=== PATIENT | female | born 1990 | race Caucasian/White ===

== ENCOUNTER → 2018-04-04 13:48 | Outpatient (CLI) | payer OTHER, SELFPAY ==
--- NOTE | 2018-04-04 13:52 | XR_ITS ---
XR foot wt bearing RT 3V HISTORY: ITS.REASON: pain ORDERING PHYSICIAN: Delmi Shankar DPM PATIENT AGE: 27 years COMPARISON: None FINDINGS: No fracture or dislocation. No lytic or blastic change. There is normal mineralization.. The joint spaces are well-preserved. No significant degenerative/arthritic changes. No erosive changes evident. IMPRESSION: Negative, no acute finding
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
== END ==
PROVIDERS: Visit Provider Podiatrist
DX: M79.673 Pain in unspecified foot (principal)
CPT/HCPCS: 73630

== ENCOUNTER → 2019-11-05 08:38 | Outpatient (CLI) | payer OTHER, SELFPAY ==
[2019-11-05 09:18] LABS: Basophils % 0.3 % (0.1-2.0); Eosinophils % 0.3 % (0.1-12.0); Hematocrit 43.5 % (37.0-47.0); Hemoglobin 13.9 g/dL (12.2-16.2); Lymphocytes # 1.9 K/mm3 (0.7-4.5); Lymphocytes % 37.8 % (10-50); Mean Corpuscular HGB Conc 31.9 g/dL (31.8-35.4); Mean Corpuscular Hemoglobin 29.5 pg (27.0-31.2); Mean Corpuscular Volume 92.5 fl (81-99); Mean Platelet Volume 8.2 fl (7.4-10.4); Monocytes # 0.3 K/mm3 (0.1-1.0); Monocytes % 5.3 % (1.7-9.3); Neutrophils # 2.8 K/mm3 (1.8-7.8); Neutrophils % 56.4 % (37.0-80.0); Platelet Count 260 K/mm3 (142-424); Red Blood Count 4.71 M/mm3 (4.20-5.40); Red Cell Distribution Width 13.2 % (11.5-17.5)
[2019-11-05 11:36] LABS: INR 0.96 (0.9-1.1)
[2019-11-05 11:40] LABS: Chloride 102 mmol/L (98-107); Sodium 137 mmol/L (136-145)
[2019-11-05 11:41] LABS: Potassium 4.3 mmoL/L (3.5-5.1)
[2019-11-05 11:43] LABS: Alanine Aminotransferase 12 U/L (12-78); Alkaline Phosphatase 43 U/L (38-126); Aspartate Amino Transferase 21 U/L (14-36); Bilirubin,Total 0.2 mg/dl (0.2-1.3); Blood Urea Nitrogen 11 mg/dl (7-17); Estimated Glomerular Filt Rate 120 ml/min (>60); GFR (African American) 145 ML/MIN (>60)
[2019-11-05 11:44] LABS: Albumin Level 4.5 g/dl (3.5-5.0); Albumin/Globulin Ratio 1.8 (1.1-1.8); Anion Gap 11.3 mEq/L (5-15); Calcium 9.7 mg/dl (8.4-10.2); Carbon Dioxide 28 mmol/L (22.0-30.0); Globulin 2.5 g/dL (1.3-3.2); Glucose 86 mg/dl (74-100)
== END ==
PROVIDERS: Visit Provider Internal Medicine Adolescent Medicine
DX: G43.109 Migraine with aura, not intractable, without status migrainosus (principal); N96 Recurrent pregnancy loss
CPT/HCPCS: 36415; 80053; 83036; 85025; 85610; 85730

== ENCOUNTER → 2019-11-07 10:03 | Outpatient (CLI) | payer OTHER, SELFPAY ==
--- NOTE | 2019-11-07 10:09 | MR_ITS ---
PROCEDURE: MR HEAD/BRAIN WO CON CLINICAL INDICATION: MIGRAINE W/AURA AND W/OUT STATUS MIGRAINES, NOT INTRACTABLE Severe headache with visual disturbance, constant dizziness, forgetfulness COMPARISON: No exams were available for comparison TECHNIQUE: Routine multiplanar multi echo sequences are performed without gadolinium enhancement. FINDINGS: No midline shift, mass effect, intracranial hemorrhage, hydrocephalus, or acute infarction is evident. There is some unusual hypertrophic changes the right occipital lobe which extends slightly across midline. There is however, no evidence of mass at this region. The cerebellopontine angles, cerebellum, and brainstem are unremarkable. No mastoid effusion or sinus air-fluid level. The pituitary, optic chiasm, corpus callosum, and craniocervical junction are unremarkable. IMPRESSION: 1. No acute intracranial findings. 2. Unusual hypertrophic change of the right occipital lobe which is of questionable clinical significance otherwise negative Dictated by: Gene Cook MD 11/08/2019 09:42 Electronically signed by Gene Cook MD in [facility] 11/08/2019 09:42
--- NOTE | 2019-11-07 10:09 | MR_ITS ---
PROCEDURE: MR CERVICAL SPINE WO CON CLINICAL INDICATION: MIGRAINE W/AURA AND W/OOUT STATUS MIGRAINOUS, NOT INTRACTABL Dizziness, pain COMPARISON: No exams were available for comparison TECHNIQUE: Standard multiplanar multiecho sequences are performed without contrast. 3-D MIP and myelographic images are also rendered and reviewed FINDINGS: There is normal alignment. There is some straightening of the cervical lordosis. The disc spaces are well preserved. No canal stenosis or disc herniation. No acute fracture or dislocation. The cervical cord has an unremarkable appearance. No destructive lesions are evident. There is some minimal upper thoracic curvature convex left IMPRESSION: Straightening of cervical lordosis otherwise negative MRI of the cervical spine. Dictated by: Gene Cook MD 11/08/2019 10:46 Electronically signed by Gene Cook MD in [facility] 11/08/2019 10:46
== END ==
PROVIDERS: PCP Internal Medicine Adolescent Medicine; Visit Provider Internal Medicine Adolescent Medicine
DX: G43.109 Migraine with aura, not intractable, without status migrainosus (principal)
CPT/HCPCS: 70551; 72141; 76376

== ENCOUNTER 2019-11-24 19:07 | Emergency (ER) | payer OTHER, SELFPAY ==
[2019-11-24 19:09] VITALS: BP 143/93; PULSE 74; RESP 16; RESP 18; TEMP 37.4; O2SAT 100; BMI 26.5
--- NOTE | 2019-11-24 19:26 | ECG_ITS ---
APPROVED REPORT Exam: Resting ECG HR:73 bpm ECG Measurements Heart Rate 73 AXES MD 128 P 44 QRSd 76 QRS 73 QT 370 T 3 QTc 407 <Conclusion> Normal sinus rhythm Cannot rule out Inferior infarct, age undetermined Abnormal ECG Electronically signed by : Balwinder Day, 11/25/2019 20:58:25
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
[2019-11-24 19:37] LABS: Microscopic, Urine URINE MICROSCOPIC (MICROSCOPIC)
[2019-11-24 19:39] VITALS: BP 140/92; PULSE 74; RESP 18; O2SAT 100
[2019-11-24 19:47] LABS: Basophils # 0.1 K/mm3 (0-0.2); Basophils % 0.6 % (0.1-2.0); Eosinophils # 0.1 K/mm3 (0.0-0.4); Eosinophils % 1.1 % (0.1-12.0); Hematocrit 44.1 % (37.0-47.0); Hemoglobin 14.1 g/dL (12.2-16.2); Lymphocytes # 2.7 K/mm3 (0.7-4.5); Lymphocytes % 22.6 % (10-50); Mean Corpuscular Hemoglobin 29.4 pg (27.0-31.2); Mean Corpuscular Volume 91.9 fl (81-99); Monocytes # 0.6 K/mm3 (0.1-1.0); Monocytes % 5.2 % (1.7-9.3); Neutrophils # 8.4 K/mm3 (1.8-7.8); Neutrophils % 70.5 % (37.0-80.0); Platelet Count 310 K/mm3 (142-424); Red Blood Count 4.81 M/mm3 (4.20-5.40); Red Cell Distribution Width 12.9 % (11.5-17.5); White Blood Count 11.9 K/mm3 (4.8-10.8)
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
[2019-11-24 19:49] LABS: Alanine Aminotransferase 15 U/L (12-78); Albumin Level 5.1 g/dl (3.5-5.0); Albumin/Globulin Ratio 1.6 (1.1-1.8); Alkaline Phosphatase 54 U/L (38-126); Anion Gap 11.6 mEq/L (5-15); Aspartate Amino Transferase 29 U/L (14-36); Bilirubin,Total 0.2 mg/dl (0.2-1.3); Blood Urea Nitrogen 13 mg/dl (7-17); Calcium 9.9 mg/dl (8.4-10.2); Carbon Dioxide 29 mmol/L (22.0-30.0); Chloride 100 mmol/L (98-107); Creatinine Clearance Estimated 146 mL/min (50-200); Estimated Glomerular Filt Rate 120 ml/min (>60); GFR (African American) 145 ML/MIN (>60); Globulin 3.2 g/dL (1.3-3.2); Glucose 91 mg/dl (74-100); Potassium 3.6 mmoL/L (3.5-5.1); Sodium 137 mmol/L (136-145); Total Protein,Serum 8.3 g/dl (6.3-8.2)
[2019-11-24 19:58] LABS: Troponin I < 0.01 ng/ml (0.00-0.034)
[2019-11-24 20:02] LABS: Appearance,Urine CLEAR (Clear); Bilirubin,Urine Negative (Negative); Blood, Urine Negative (Negative); Color,Urine YELLOW (Yellow); Glucose,Urine (UA) Negative (Negative); Ketones,Urine Negative (Negative); Leukocyte Esterase,Urine Negative (Negative); Nitrate,Urine Negative (Negative); PH,Urine 6.5 (5.0-8.5); Protein,Urine Negative (Negative); Urobilinogen,Urine 0.2 EU/dl (0.2)
[2019-11-24 20:03] LABS: Urine Pregnancy, HCG Qual. Negative (Negative)
[2019-11-24 20:05] LABS: WBC,Urine Occasional #/hpf (0-3)
[2019-11-24 20:39] VITALS: BP 139/91; PULSE 74; RESP 15; O2SAT 99
[2019-11-24 21:44] VITALS: BP 137/87; PULSE 81; RESP 16; TEMP 36.8; O2SAT 100
== END 2019-11-24 21:47 | disposition home or self-care (01) ==
PROVIDERS: Emergency Provider Family Medicine; PCP Internal Medicine Adolescent Medicine
DX: S16.1XXA Strain of muscle, fascia and tendon at neck level, initial encounter (principal); V89.2XXA Person injured in unspecified motor-vehicle accident, traffic, initial encounter; R55 Syncope and collapse; Z88.0 Allergy status to penicillin; Z90.09 Acquired absence of other part of head and neck; F17.210 Nicotine dependence, cigarettes, uncomplicated
CPT/HCPCS: 70450; 71045; 72125; 72170; 73590; 80053; 81001; 81025; 84484; 85025; 93005; 96365; 99283

== ENCOUNTER → 2019-11-27 15:16 | Outpatient (CLI) | payer OTHER, SELFPAY | PROVIDERS: PCP Internal Medicine Adolescent Medicine; Visit Provider Internal Medicine Adolescent Medicine | DX: R55 Syncope and collapse (principal) | CPT/HCPCS: 93225; 93226 ==

== ENCOUNTER → 2019-12-03 12:55 | Outpatient (CLI) | payer OTHER, SELFPAY | PROVIDERS: Visit Provider Specialist | DX: R55 Syncope and collapse (principal); R40.4 Transient alteration of awareness; R53.83 Other fatigue; G47.10 Hypersomnia, unspecified | CPT/HCPCS: 36415 ==

== ENCOUNTER → 2019-12-09 07:56 | Outpatient (POV) | payer OTHER, SELFPAY | PROVIDERS: PCP Internal Medicine Adolescent Medicine; Referring Provider Specialist; Visit Provider Specialist | DX: R40.4 Transient alteration of awareness (principal); R55 Syncope and collapse | CPT/HCPCS: 95819 ==

== ENCOUNTER 2019-12-10 07:02 | Day surgery (SDC) | payer OTHER, SELFPAY ==
[2019-12-10 07:42] VITALS: BMI 26.5
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
== END 2019-12-10 09:10 | disposition home or self-care (01) ==
LOC: RT 07:02
PROVIDERS: PCP Internal Medicine Adolescent Medicine; Visit Provider Internal Medicine Adolescent Medicine
DX: R55 Syncope and collapse (principal)
CPT/HCPCS: 93660

== ENCOUNTER → 2020-01-07 11:05 | Outpatient (CLI) | payer OTHER, SELFPAY ==
[2020-01-07 13:04] LABS: HCG,Quantitative 2795 mIU/ml (0-5.42)
[2020-01-07 13:45] LABS: Coronavirus 19 IgG Antibody Negative (Negative); Coronavirus 19 IgM Antibody Negative (Negative)
== END ==
PROVIDERS: Specialist; Visit Provider Nurse Practitioner Obstetrics & Gynecology
DX: Z32.00 Encounter for pregnancy test, result unknown (principal)
CPT/HCPCS: 36415; 84702; 86328

== ENCOUNTER → 2020-01-08 20:13 | Outpatient (CLI) | payer OTHER, SELFPAY | PROVIDERS: PCP Internal Medicine Adolescent Medicine; Visit Provider Specialist | DX: G47.419 Narcolepsy without cataplexy (principal); G47.10 Hypersomnia, unspecified; R55 Syncope and collapse; R53.83 Other fatigue; R40.4 Transient alteration of awareness; G43.109 Migraine with aura, not intractable, without status migrainosus; F39 Unspecified mood [affective] disorder | CPT/HCPCS: 95810 ==

== ENCOUNTER 2020-01-09 07:11 | Outpatient (CLI) | payer OTHER, SELFPAY ==
[2020-01-09 08:35] LABS: Basophils # 0.1 K/mm3 (0-0.2); Basophils % 0.7 % (0.1-2.0); Eosinophils # 0.1 K/mm3 (0.0-0.4); Hematocrit 42.2 % (37.0-47.0); Hemoglobin 14.1 g/dL (12.2-16.2); Lymphocytes # 1.8 K/mm3 (0.7-4.5); Lymphocytes % 29.7 % (10-50); Mean Corpuscular HGB Conc 33.4 g/dL (31.8-35.4); Mean Corpuscular Hemoglobin 31.1 pg (27.0-31.2); Mean Corpuscular Volume 93.3 fl (81-99); Monocytes # 0.3 K/mm3 (0.1-1.0); Monocytes % 5.1 % (1.7-9.3); Neutrophils # 3.9 K/mm3 (1.8-7.8); Neutrophils % 63.5 % (37.0-80.0); Platelet Count 288 K/mm3 (142-424); Red Blood Count 4.52 M/mm3 (4.20-5.40); Red Cell Distribution Width 12.8 % (11.5-17.5); White Blood Count 6.2 K/mm3 (4.8-10.8)
[2020-01-09 09:19] LABS: HCG,Quantitative 5482 mIU/ml (0-5.42)
[2020-01-09 11:05] VITALS: BP 116/85; PULSE 91; RESP 18; TEMP 36.7; O2SAT 97
[2020-01-12 17:06] LABS: HIV Screen 4th Generation wRfx Non Reactive; Hepatitis B Surface Antigen Negative; Hepatitis C Antibody <.1
[2020-01-12 17:07] LABS: Rapid Plasma Reagin Ab Titer Non Reactive; Rubella Antibodies, IgG 1.53
== END 2020-01-09 11:20 | disposition home or self-care (01) ==
LOC: LAB 07:12 → INF 10:58
PROVIDERS: Visit Provider Nurse Practitioner Obstetrics & Gynecology
DX: O20.0 Threatened abortion (principal); Z32.00 Encounter for pregnancy test, result unknown; O26.899 Other specified pregnancy related conditions, unspecified trimester; Z67.91 Unspecified blood type, Rh negative
CPT/HCPCS: 36415; 84702; 85025; 86592; 86703; 86762; 87340; 87380; 96372; G0432; J2790

== ENCOUNTER → 2020-01-10 07:08 | Outpatient (CLI) | payer OTHER, SELFPAY | PROVIDERS: PCP Internal Medicine Adolescent Medicine; Visit Provider Specialist | DX: G47.10 Hypersomnia, unspecified (principal) | CPT/HCPCS: 95805 ==

== ENCOUNTER → 2020-01-16 07:15 | Outpatient (CLI) | payer OTHER, SELFPAY ==
[2020-01-16 14:00] LABS: HCG,Quantitative 23303 mIU/ml (0-5.42)
== END ==
PROVIDERS: Visit Provider Nurse Practitioner Obstetrics & Gynecology
DX: Z34.90 Encounter for supervision of normal pregnancy, unspecified, unspecified trimester (principal)
CPT/HCPCS: 36415; 84702

== ENCOUNTER → 2020-01-17 10:45 | Outpatient (CLI) | payer OTHER, SELFPAY ==
--- NOTE | 2020-01-17 10:45 | US_ITS ---
PROCEDURE: US OB TRANSVAGINAL CLINICAL INDICATION: for dates COMPARISON: TVP US TRANSVAGINAL PREG from 01/16/2016 FINDINGS: An intrauterine gestational sac is present with a pole with a crown-rump length of 0.54cm correlating to gestational age of 6weeks 3days. heart tones are present with an FHR of 119bpm. Yolk sac is noted. There is a probable hypervascular right corpus luteum cyst. Right ovary measures 4 centimeters x 2.6 mm x 3.1 centimeters. Left ovary measures 6 3.2 centimeters x 71.7 centimeters by 2.4 centimeters. There are no abnormal fluid collections. IMPRESSION: Viable 6 week 3 day IUP Estimated due date by Ultrasound is 09/08/2020 Dictated by: Scott Thompson 01/17/2020 13:11 Electronically signed by Scott Thompson in [facility] 01/17/2020 13:11
== END ==
PROVIDERS: PCP Internal Medicine Adolescent Medicine; Visit Provider Nurse Practitioner Obstetrics & Gynecology
DX: Z34.90 Encounter for supervision of normal pregnancy, unspecified, unspecified trimester (principal)
CPT/HCPCS: 76817

== ENCOUNTER → 2020-02-28 13:31 | Outpatient (CLI) | payer OTHER, SELFPAY ==
--- NOTE | 2020-02-28 13:31 | US_ITS ---
PROCEDURE: US OB TRANSVAGINAL CLINICAL INDICATION: dates before 12 wks Spotty blood COMPARISON: US US OB TRANSVAGINAL from 01/17/2020 FINDINGS: An intrauterine gestational sac is present with a pole with a crown-rump length of 6.46cm correlating to gestational age of 12weeks 6days. heart tones are present with an FHR of 154bpm. Placenta is forming posteriorly. No obvious subchorionic bleed. No adnexal mass or cul-de-sac fluid IMPRESSION: Live IUP at 12 weeks 6 days Estimated due date by Ultrasound is 09/05/2020 Dictated b Gene Cook MD 02/28/2020 16:49 Gene Cook MD in [facility] 02/28/2020 16:49
== END ==
PROVIDERS: PCP Internal Medicine Adolescent Medicine; Visit Provider Nurse Practitioner Obstetrics & Gynecology
DX: O26.841 Uterine size-date discrepancy, first trimester (principal)
CPT/HCPCS: 76817

== ENCOUNTER → 2020-04-17 07:39 | Outpatient (CLI) | payer OTHER, SELFPAY ==
--- NOTE | 2020-04-17 07:39 | US_ITS ---
PROCEDURE: US OB /MATERNAL DETAIL CLINICAL INDICATION: 20 week gestation Anatomy scan COMPARISON: US US OB TRANSVAGINAL from 02/28/2020 FINDINGS: There is a single live intrauterine gestation present in breech presentation. The cervix is closed measuring 4.6 cm. The placenta fundal with anterior and posterior components and is grade 1. Complete survey performed and was unremarkable on the submitted images as in PACS. No discrete anomalies identified on survey imaging by technologist. Active fetus. Three-vessel cord with satisfactory umbilical cord insertion. 4- chamber heart noted. Survey of brain & ventricles Unremarkable. Face and neck survey unremarkable. Diaphragm and chest views unremarkable. Abdomen: Both kidneys noted and unremarkable. Stomach noted and satisfactory. Spine: Survey of the spine satisfactory with no anomalies identified nor imaged. Both arms and legs noted. Amniotic Fluid: Adequate. Maternal adnexa: No significant findings. Measurements: Average ultrasound age 19weeks 5days. Gestational Age 19weeks 3days Estimated due date by ultrasound age 0209/06/2020. Estimated weight 295g BPD = 19weeks 6days OFD = 20weeks 2days HC = 19weeks 3days AC = 19weeks 4days FL = 19weeks 4days Growth Percentile= 48Percent% Heart Rate = 150bpm Cerebellum = 20weeks 1day Humerus = 19weeks 2days HC/AC is 1.18 CI is 0.77 FL/BPD is 0.67 FL/AC is 0.22 IMPRESSION: Live IUP in breech presentation with an average ultrasound age of 19 weeks 5 days. No obvious anomalies. Please see above for detail Dictated by: Gene Cook MD 04/18/2020 13:01 Gene Cook MD in [facility] 04/18/2020 13:01
== END ==
PROVIDERS: PCP Internal Medicine Adolescent Medicine; Visit Provider Nurse Practitioner Obstetrics & Gynecology
DX: Z34.90 Encounter for supervision of normal pregnancy, unspecified, unspecified trimester (principal); Z3A.20 20 weeks gestation of pregnancy
CPT/HCPCS: 76811

== ENCOUNTER → 2020-06-17 07:37 | Outpatient (CLI) | payer OTHER, SELFPAY ==
[2020-06-17 08:16] LABS: Glucose,Fasting 76 mg/dl (74-100)
[2020-06-17 10:49] LABS: Glucose 1 Hour 97 mg/dL (74-100)
== END ==
PROVIDERS: Visit Provider Nurse Practitioner Obstetrics & Gynecology
DX: O26.899 Other specified pregnancy related conditions, unspecified trimester (principal); Z34.90 Encounter for supervision of normal pregnancy, unspecified, unspecified trimester; Z67.91 Unspecified blood type, Rh negative
CPT/HCPCS: 36415; 82951; J2790

== ENCOUNTER 2020-06-18 07:33 | Outpatient (CLI) | payer OTHER, SELFPAY ==
--- NOTE | 2020-06-18 07:46 | PC.NURSE ---
Pt. here for outpatient Rhogam injection.
[2020-06-18 07:53] VITALS: BMI 28.9
[2020-06-18 09:02] VITALS: BP 108/59; PULSE 73; RESP 16; TEMP 36.8; O2SAT 98
--- NOTE | 2020-06-18 09:17 | PC.NURSE ---
08:56 Pt. tolerated injection well.
--- NOTE | 2020-06-18 09:18 | PC.NURSE ---
Addendum entered by Laurel Su RN 06/18/20 09:19: This occurred at 09:00 Original Note: Pt. left ambulatory per pt. request.
== END 2020-06-18 09:00 | disposition home or self-care (01) ==
LOC: OBOUT 07:34 → OB 07:37
PROVIDERS: PCP Internal Medicine Adolescent Medicine; Visit Provider Nurse Practitioner Obstetrics & Gynecology
DX: O26.899 Other specified pregnancy related conditions, unspecified trimester (principal); Z3A.38 38 weeks gestation of pregnancy; Z67.91 Unspecified blood type, Rh negative
CPT/HCPCS: 96372; J2790

== ENCOUNTER → 2020-07-02 15:09 | Outpatient (CLI) | payer OTHER, SELFPAY ==
[2020-07-02 15:12] LABS: Microscopic, Urine URINE MICROSCOPIC (MICROSCOPIC)
[2020-07-02 16:01] LABS: Appearance,Urine CLEAR (Clear); Bilirubin,Urine Negative (Negative); Blood, Urine Negative (Negative); Color,Urine YELLOW (Yellow); Glucose,Urine (UA) Negative (Negative); Ketones,Urine Negative (Negative); Leukocyte Esterase,Urine Negative (Negative); Nitrate,Urine Negative (Negative); PH,Urine 7.5 (5.0-8.5); Protein,Urine Negative (Negative); Urobilinogen,Urine 0.2 EU/dl (0.2)
[2020-07-02 16:13] LABS: Bacteria,Urine Trace /lpf; RBC,Urine Occasional #/hpf (0-3)
== END ==
PROVIDERS: Visit Provider Nurse Practitioner Obstetrics & Gynecology
DX: Z34.90 Encounter for supervision of normal pregnancy, unspecified, unspecified trimester (principal); Z3A.30 30 weeks gestation of pregnancy
CPT/HCPCS: 81001

== ENCOUNTER → 2020-07-31 12:50 | Outpatient (CLI) | payer OTHER, SELFPAY ==
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
== END ==
PROVIDERS: PCP Internal Medicine Adolescent Medicine; Visit Provider Nurse Practitioner Obstetrics & Gynecology
DX: O36.5990 Maternal care for other known or suspected poor fetal growth, unspecified trimester, not applicable or unspecified (principal)
CPT/HCPCS: 76811; 76819

== ENCOUNTER → 2020-08-12 10:50 | Outpatient (CLI) | payer OTHER, SELFPAY | PROVIDERS: Visit Provider Nurse Practitioner Obstetrics & Gynecology | DX: Z34.90 Encounter for supervision of normal pregnancy, unspecified, unspecified trimester (principal) | CPT/HCPCS: 86403 ==

== ENCOUNTER → 2020-08-14 13:53 | Outpatient (CLI) | payer OTHER, SELFPAY ==
--- NOTE | 2020-08-14 13:57 | US_ITS ---
PROCEDURE: US OB FOLLOW UP CLINICAL INDICATION: Low amniotic fluid COMPARISON: US US OB /MATERNAL DETAIL from 07/31/2020 FINDINGS: There is a live IUP which is in cephalic presentation. The cervix is closed measuring 3 cm. heart and body motion is noted within FHR 152 beats per minute. The placenta is fundal and grade 1. Average ultrasound age is 34 weeks 6 days. Estimated weight 2520 g which is 15th percentile. BPD is 34 weeks 5 days, OFD 34 weeks 5 days, HC 34 weeks 2 days, AC 34 weeks 5 days, FL 35 weeks 4 days. The the GUNJAN is along the lower limits of normal at 7 cm. This is not significantly changed. IMPRESSION: Live IUP in cephalic presentation with an average ultrasound age of 34 weeks 6 days. Please see above for detail GUNJAN is 7 cm Dictated by: Gene Cook MD 08/15/2020 10:45 Gene Cook MD in [facility] 08/15/2020 10:45
== END ==
PROVIDERS: PCP Internal Medicine Adolescent Medicine; Visit Provider Nurse Practitioner Obstetrics & Gynecology
DX: O41.00X0 Oligohydramnios, unspecified trimester, not applicable or unspecified (principal)
CPT/HCPCS: 76816

== ENCOUNTER 2020-09-02 05:00 | Inpatient (IN) | payer OTHER, SELFPAY ==
[2020-09-02 05:03] VITALS: BMI 29.9
[2020-09-02 06:13] VITALS: BP 119/73; PULSE 80; RESP 18; TEMP 36.9; O2SAT 98; BMI 29.9
[2020-09-02 06:32] LABS: Microscopic, Urine URINE MICROSCOPIC (MICROSCOPIC)
[2020-09-02 06:33] LABS: Basophils # 0.1 K/mm3 (0-0.2); Basophils % 0.6 % (0.1-2.0); Eosinophils # 0.5 K/mm3 (0.0-0.4); Eosinophils % 3.1 % (0.1-12.0); Hematocrit 38.1 % (37.0-47.0); Hemoglobin 12.4 g/dL (12.2-16.2); Lymphocytes # 2.7 K/mm3 (0.7-4.5); Lymphocytes % 17.7 % (10-50); Mean Corpuscular HGB Conc 32.5 g/dL (31.8-35.4); Mean Corpuscular Hemoglobin 29.8 pg (27.0-31.2); Mean Corpuscular Volume 91.7 fl (81-99); Mean Platelet Volume 8.6 fl (7.4-10.4); Monocytes # 0.9 K/mm3 (0.1-1.0); Monocytes % 5.9 % (1.7-9.3); Neutrophils # 11.2 K/mm3 (1.8-7.8); Neutrophils % 72.7 % (37.0-80.0); Platelet Count 366 K/mm3 (142-424); Red Blood Count 4.15 M/mm3 (4.20-5.40); Red Cell Distribution Width 13.9 % (11.5-17.5); White Blood Count 15.4 K/mm3 (4.8-10.8)
[2020-09-02 06:39] LABS: Appearance,Urine CLEAR (Clear); Bilirubin,Urine Negative (Negative); Blood, Urine Negative (Negative); Color,Urine ORANGE (Yellow); Glucose,Urine (UA) Negative (Negative); Ketones,Urine Negative (Negative); Leukocyte Esterase,Urine Negative (Negative); Nitrate,Urine Negative (Negative); PH,Urine 6.5 (5.0-8.5); Protein,Urine TRACE (Negative); Specific Gravity, Urine 1.025 (1.005-1.030); Urobilinogen,Urine 0.2 EU/dl (0.2)
[2020-09-02 06:42] LABS: MANUAL DIFFERENTIAL MANUAL DIFFERENTIAL (MANUAL DIFF)
[2020-09-02 06:48] LABS: Barbiturates Screen,Urine Negative ng/ml (<200)
[2020-09-02 06:49] LABS: Benzodiazepines Screen,Urine Negative ng/ml (<200)
[2020-09-02 06:50] LABS: Amphetamine/Metha Screen,Urine Negative ng/ml (<1000); Cocaine Screen,Urine Negative ng/ml (<300)
[2020-09-02 06:51] LABS: Cannabinoid Screen,Urine Negative ng/ml (<50); Methadone Screen,Urine Negative ng/ml (<300)
[2020-09-02 06:52] LABS: Opiate Screen,Urine Negative ng/ml (<300)
[2020-09-02 06:53] LABS: Phencyclidine Screen,Urine Negative ng/ml (<25)
[2020-09-02 07:45] LABS: Lymphocytes % 18 % (10-50); Monocytes % 6 % (2-9); Neutrophils % 76 % (42-76); Platelet Estimate Normal; RBC Morphology Normal; Total Cells Counted 100
--- NOTE | 2020-09-02 09:35 | P.PN_ITS ---
[facility] Anesthesia Checklist - Structural Data Admitted From: Inpatient Planned Operative Procedure/s: labor epidural Consent for Planned Operative Procedure(s) Verified: Yes - Airway Assessment C-Spine Mobility Assessed: Yes TMJ Mobility Assessed: Yes Dentition: Good Dentition - Neurological Assessment Level of Consciousness: Awake, Alert, Appropriate - Anesthesia Plan Anesthesia Risk discussed: Yes Anesthesia Plan: Verified ASA Class: II Anesthesia Type: Epidural [facility] History I have reviewed the patient's past medical history: Yes Medical History: Reports:: Anxiety, Depression, Migraine Denies:: Cancer, Diabetes Mellitus Type 1, Diabetes Mellitus Type 2, MRSA *Have you ever received a pneumonia vaccine?: No *Have you received a flu vaccine this season?: Yes Anesthesia experience/problems:: none Laterality Cases: Left: Carpal Tunnel Release, Bilateral: Tonsillectomy, Total Hip Replacement Other Surgeries: Yes: Dilation and Curettage, Other. No: Amputation: No Fractures: No - *Social History Smoking Status: Former smoker Tobacco Type: cigarettes # Packs/Day (cigarettes): 1 #Yrs smoked (if former smoker): 12 Alcohol Intake: former Alcohol Intake Frequency:: holidays/special occasions only Substance Use Type: denies use *Occupational Status:: employed Housing: house Household Members: family *Travel in the last 8 weeks: None - Psychiatric History Pschychiatric History:: Reports:: Anxiety, Depression Family Hx:: Cancer, Diabetes, Stroke [employer] history: Spontaneous Para: 1
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
[2020-09-02 11:24] LABS: Cord Blood PH 7.26 (7.35-7.45)
--- NOTE | 2020-09-02 12:15 | HMH.DN ---
- Delivery Note Delivery Date:: 09/02/20 Delivery Time:: 11:06 Anesthesia Type: Epidural Was labor medically induced?: Yes Induction method: per misoprostol protocol Gestational age (weeks): 39 Infant delivered prior to 39 weeks?: No Infant Gender: Male at 1 minute: 7 at 5 minutes: 8 Delivery Procedure:: She is a 29-year-old 8 para 1 aborta 6 who was 39 weeks gestational age. She expressed a desire for induction of labor at term. She was started on IV oxytocin and had her membranes ruptured. She was having some prolonged decelerations and she was 8 cm dilated and the baby's head was quite low. We had her push and she was able to push beyond the cervix and she delivered spontaneously a liveborn male child at 1106. Undiluted head the anterior shoulder then delivered followed by the rest the infant's body atraumatically. The oropharynx and nasopharynx were bulb suction. The baby was vigorous. We allowed the cord to continue to pulsate for approximately 1 minute. The cord was then doubly clamped and cut and the infant was placed on the mother's abdomen for further care. The nurses assigned Apgars of 7 at 1 minute and 8 at 5 minutes. We then obtained cord blood as well as cord pH. The pH was 7.26. Using gentle traction on the cord the cord then spontaneously tore and the placenta remained in situ. The patient received IV oxytocin and the placenta then delivered spontaneously at 12:07 PM. It had a normal three-vessel cord. There were no perineal or vaginal lacerations. She has a Rh- blood, she is rubella immune and was group B streptococcus negative. She plans to breast-feed. Her senior solutions consultant is Dr. Faria. Estimated blood loss was approximately 500 cc. Placental Delivery Description: Spontaneous
--- NOTE | 2020-09-02 12:20 | HMH.OBAPHP ---
OB - H&P: HPI Antepartum - History of Present Illness Chief complaint: Term History of present illness: She is a 29-year-old 8 para 1 aborta 6 who was 39+ weeks gestational age. She expressed a desire for induction at term. - History of Present Criteria for establishing EDC:: LMP confirmed by 1st trimester US care: good care Ultrasounds: normal 1st trimester US, normal mid trimester US Obstetrical complications: none Medical complications: none - Labs Blood type: A (-) negative Rubella: immune RPR/VDRL: nonreactive GBS status: negative HBsAG: negative [facility] History I have reviewed the patient's past medical history: Yes Medical History: Reports:: Anxiety, Depression, Migraine Denies:: Cancer, Diabetes Mellitus Type 1, Diabetes Mellitus Type 2, MRSA *Have you ever received a pneumonia vaccine?: No *Have you received a flu vaccine this season?: Yes Anesthesia experience/problems:: none Laterality Cases: Left: Carpal Tunnel Release, Bilateral: Tonsillectomy, Total Hip Replacement Other Surgeries: Yes: Dilation and Curettage, Other. 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 Para: 1 Review of Systems - Review of Systems Review of systems:: pertinent systems reviewed and negative unless documented below Meds Home Medications Medication Instructions Recorded Confirmed Type prenat.vits,chema,kxw-inkz-angsm 1 tab PO DAILY 02/04/20 09/02/20 History vmrqlfxprt-whspuegrkcgww-aiohcwpa 1 tab PO NEEDED PRN 02/26/20 09/02/20 History 50 mg-325 mg-40 mg tablet RX: Famotidine [Acid Head Of English] 20 mg PO DAILY 09/02/20 09/02/20 History Allergies Allergy/AdvReac Type Severity Reaction Status Date / Time penicillin G [PENICILLIN G] Allergy Intermediate I-HIVES Verified 08/31/20 09:31 promethazine [From PHENERGAN] Allergy Unknown NA-NAUSEA/V Verified 08/31/20 09:31 OMITING amoxicillin Allergy Verified 08/31/20 09:31 OB - H&P: Exam - Physical Exam Vital signs: Temp Pulse Resp BP Pulse Ox 98.4 F 80 18 119/73 98 09/02/20 06:13 09/02/20 06:13 09/02/20 06:13 09/02/20 06:13 09/02/20 06:13 - Constitutional no acute distress - Routine HEENT Exam Head: Present: normocephalic Eye: Present: EOMI, PERRL ENT: Present: mucous membranes moist - Routine Neck Exam Present: supple, full ROM - Routine Respiratory Exam Absent: accessory muscle use (good air entry bilaterally), respiratory distress, wheezes, crackles - Routine Cardiovascular Exam Present: RRR. Absent: murmur - Routine Abdominal Exam Present: soft, normoactive bowel sounds. Absent: tenderness, distended, guarding - Routine Rectal Exam Patient deferred: visual exam, digital exam - Routine Exam Patient deferred: external exam, groin exam, perineal exam - Routine Extremities Exam Present: full ROM. Absent: cyanosis, edema - Routine Skin Exam Present: intact. Absent: cyanosis - Routine Neurological Exam Present: alert, oriented X3 - Routine Psychiatric Exam Present: normal affect OB - Results - Labs Labs: Short CBC 09/02/20 Range/Units 05:35 WBC 15.4 H (4.8-10.8) K/mm3 Hgb 12.4 (12.2-16.2) g/dL Hct 38.1 (37.0-47.0) % Plt Count 366 (142-424) K/mm3 Urine 09/02/20 Range/Units 05:15 Urine Color [place] (Yellow) Urine Appearance Clear (Clear) Urine pH 6.5 (5.0-8.5) Ur Specific [place] 1.025 (1.005-1.030) Ur
[2020-09-02 20:00] VITALS: BP 119/58; PULSE 76; RESP 18; TEMP 36.8; O2SAT 96
[2020-09-03 04:20] VITALS: BP 120/66; PULSE 86; RESP 16; TEMP 36.8; O2SAT 97
[2020-09-03 07:17] LABS: Hematocrit 36.9 % (37.0-47.0)
[2020-09-03 08:00] VITALS: BP 132/57; PULSE 71; RESP 20; TEMP 36.7; O2SAT 97
--- NOTE | 2020-09-03 11:30 | HMH.ACPN2 ---
Internal Medicine - PN: Subj *Date: 09/03/20 *Time: 11:30 Interval history: She is doing very well this morning. She is eating and drinking and ambulating. Her lochia is normal. She denies any pain. Exam Vital signs and Labs for Last 24 Hours: Temp Pulse Resp BP Pulse Ox 98.1 F 71 20 132/57 L 97 09/03/20 08:00 09/03/20 08:00 09/03/20 08:00 09/03/20 08:00 09/03/20 08:00 Laboratory Results - last 24 hr 09/02/20 05:35: Antibody Identification See Comments 09/03/20 06:26: Hgb 12.0 L, Hct 36.9 L 09/03/20 06:26: Blood Type Cancelled, Antibody Screen Cancelled, Screen Cancelled, Baby's Rh Status Cancelled I & O for Last 24 hours: Intake & Output 08/31/20 09/01/20 09/02/20 09/03/20 11:59 11:59 11:59 11:59 Weight 164 lb Microbiology Reports for the Last 24 Hours: Microbiology 09/02/20 05:45 Nasopharyngeal Coronavirus COVID-19 PCR - Final - Constitutional no acute distress - *Routine HEENT Exam Head: Present: normocephalic Eye: Present: EOMI, PERRL ENT: Present: mucous membranes moist Assessment and Plan (1) Normal delivery at term Status: Acute Category: Medical Code(s): O80 - Encounter for full-term uncomplicated delivery - Assessment and plan all Dx Assessment and Plan for all problems:: She continues to do very well. We will plan to send her home tomorrow.
[2020-09-03 20:32] VITALS: BP 138/58; PULSE 57; RESP 18; TEMP 36.7; O2SAT 96
[2020-09-04 03:53] VITALS: BP 112/57; PULSE 67; RESP 16; TEMP 36.8; O2SAT 96
[2020-09-04 08:00] VITALS: BP 112/70; PULSE 75; RESP 18; TEMP 36.5; O2SAT 95
--- NOTE | 2020-09-04 08:10 | HMH.OBDCSM ---
General - General Admission date:: 09/02/20 Discharge date: 09/04/20 HPI - History of Present Illness History of present illness: She is a 29-year-old 8 now 4 para 2 aborta 6 who was 39+ weeks gestational age. She was feeling pressure and discomfort and as result of that was offered induction of labor at term. Hospital Course Hospital Course: She was started on IV oxytocin and had her membranes ruptured. Under labor parous progressed to full dilation and delivered spontaneously a liveborn male child at 11:06 AM on the morning of September 02, 2020. The baby weighed 5 pounds 14 ounces and had Apgars of 7 at 1 minute and 8 at 5 minutes. She has done well and has remained afebrile throughout her hospitalization. She is eating and drinking and ambulating. She is breast-feeding. Her lochia is normal. She has a Rh+ blood and she did not need RhoGam. She is rubella immune and was group B streptococcus negative. 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 She is discharged home to follow-up with me in approximately 2 weeks time. She will continue with her vitamins and iron. She is just taking lvfl-xui-selwwtz analgesics for discomfort. Her condition on discharge is stable and improved. Rhogam Administration: Not Indicated Objective Vital signs: Temp Pulse Resp BP Pulse Ox 98.3 F 67 16 112/57 L 96 09/04/20 03:53 09/04/20 03:53 09/04/20 03:53 09/04/20 03:53 09/04/20 03:53 no acute distress - *Routine HEENT Exam Head: Present: normocephalic Eye: Present: EOMI, PERRL ENT: Present: mucous membranes moist Results Labs on day of discharge: Labs from last 24 hours 09/03/20 09/02/20 06:26 05:35 Blood Type Cancelled Antibody Screen Cancelled Antibody Identification See Comments Screen Cancelled Baby's Rh Status Cancelled DS: Diagnosis - Discharge Diagnosis (1) Normal delivery at term Status: Acute Discharge Plan - Patient Discharge Instructions ACTIVITY: No heavy lifting DIET: continue same diet Additional Instructions: NO HEAVY LIFTING, STRENUOUS ACTIVITY AND NOTING IN THE VAGINA FOR 6 WEEKS Patient Instructions: Depression, Hemorrhage, DI for Labor and Delivery, Vaginal , DI for Pre-eclampsia, [facility] Post Discharge Instructions, Preventing the Spread of Coronavirus Discharge Instructions - Follow up Plan Follow up with: Gage Dyer MD [Staff Physician] - Disposition: Home, Self-Senior Living Medications: Home Medications Medication Instructions Recorded Confirmed Type prenat.vits,chema,sah-bcit-nuqtv 1 tab PO DAILY 02/04/20 09/02/20 History kbggawwdat-kxghallpknmmx-yxiaitjf 1 tab PO NEEDED PRN 02/26/20 09/02/20 History 50 mg-325 mg-40 mg tablet Famotidine [Acid Objective C Developer] 20 mg PO DAILY 09/02/20 09/02/20 History Prescriptions/Medication Reconciliation: Continued prenat.vits,chema,eoo-ginn-iolbm 1 tab PO DAILY rwwnmlhtey-giyicduouzeah-qkvomdzo 50 mg-325 mg-40 mg tablet 1 tab PO NEEDED PRN PRN Reason: Migraine Headache Famotidine [Acid Objective C Developer] 20 mg PO DAILY - Problem Reconciliation Problems Reviewed?: Yes
== END 2020-09-04 11:20 | disposition home or self-care (01) | DRG 807 ==
PROVIDERS: Admitting Provider Nurse Practitioner Obstetrics & Gynecology; PCP Internal Medicine Adolescent Medicine; Visit Provider Nurse Practitioner Obstetrics & Gynecology
DX: O76 Abnormality in fetal heart rate and rhythm complicating labor and delivery (principal); Z37.0 Single live birth; Z3A.39 39 weeks gestation of pregnancy
CPT/HCPCS: 59409; 36415; 59025; 80305; 81001; 82800; 85007; 85014; 85018; 85025; 86850; 86870; 94761; C1758; G0283; U0003

== ENCOUNTER 2021-01-05 09:51 | Emergency (ER) | payer OTHER, SELFPAY ==
[2021-01-05 09:55] VITALS: BP 126/75; PULSE 53; RESP 17; TEMP 36.7; O2SAT 100; BMI 24.7
[2021-01-05 10:09] VITALS: BP 126/75; PULSE 53; RESP 17; TEMP 36.7; O2SAT 100
--- NOTE | 2021-01-05 10:12 | HMH.EDUTC ---
[facility] [place] Clinical Impression: Migraine Qualifiers: Migraine type: unspecified Status migrainosus presence: without status migrainosus Intractability: not intractable Qualified Code(s): G43.909 - Migraine, unspecified, not intractable, without status migrainosus Disposition: Home, Self-Care Condition on Discharge: Good Instructions: Migraine -- Adult, DI for Migraine Additional Instructions: Drink plenty of fluids. Take tylenol or ibuprofen for pain or fever. Take the medications as directed. Follow up with your regular doctor. GO TO THE ER FOR ANY WORSENING SYMPTOMS Referrals: Michael Faria MD [Primary Care Provider] - Time of Disposition: 10:13 Medical Decision Making - Medical Records Medical records reviewed: No: I reviewed the patient's medical records. - Jad Inquiry Pt receiving controlled substance: No Vital Signs: 01/05/21 09:55 01/05/21 10:09 Temperature 98.1 F 98.1 F Temperature Source Oral Pulse Rate 53 L Pulse Rate [Left] 53 L Respiratory Rate 17 17 Blood Pressure 126/75 Blood Pressure [Right Arm] 126/75 Blood Pressure Mean [Right Arm] 92 02 Sat by Pulse Oximetry 100 Orders (Tests/Meds): ED MEDICATIONS Discontinued Medications Generic Name Dose Route Start Last Admin Trade Name Freq PRN Reason Stop Dose Admin Ketorolac Tromethamine 60 mg 01/05/21 10:08 01/05/21 10:09 Ketorolac 60mg/2ml Vial IM 01/05/21 10:09 [address] [facility] [place] - General Stated complaint: headache Time Seen by Provider: 01/05/21 10:00 Mode of Arrival: Ambulatory Source of Information: Patient Limitations: No Limitations Description of Symptoms (Recalled from Triage Doc. by RN): Pt states she has had a migraine since this morning HEENT Symptoms (Recalled from RN notes): No Resp Symptoms (Recalled from RN notes): No Skin Symptoms (Recalled from RN notes): No MS Symptoms (Recalled from RN notes): No Functional Status (Recalled from RN notes): wnl - History of Present Illness Provider Complaint: She states that she has been having symptoms of her migraine headaches this morning. She usually takes excedrin. She took this early this morning and it did not help. She denies any other complaints. She denies that this is the worst headache of her life. - Related Data Previous Rx's Medication Instructions Recorded metoclopramide HCl 5 mg tablet 5 mg PO QID 14 Days #56 tab 10/13/20 norethindrone (contraceptive) 0.35 0.35 mg PO DAILY #84 tab 10/13/20 mg tablet levonorgestrel-ethinyl estradiol 1 tab PO DAILY #28 tab 12/16/20 0.1 mg-20 mcg tablet Allergies Allergy/AdvReac Type Severity Reaction Status Date / Time penicillin G [PENICILLIN G] Allergy Intermediate I-HIVES Verified 01/05/21 10:03 promethazine [From PHENERGAN] Allergy Unknown NA-NAUSEA/V Verified 01/05/21 10:03 OMITING amoxicillin Allergy Verified 01/05/21 10:03 - Worker's Comp Is this a Worker's Comp case?: No [facility] History - Hepatitis A Screen Drug use history?: No High risk sexual behaviors?: No History of sexually transmitted infection?: No Currently employed?: No Childcare worker?: No Do you have indoor plumbing?: Yes Do you have electricity?: Yes Attestation statement:: This patient has been screened for Hepatitis A risk factors. I have reviewed the patient's past medical history: Yes Medical History: Reports:: Anxiety, Depression, Migraine Denies:: Cancer, Diabetes Mellitus Type 1, Diabetes Mellitus Type 2, MRSA Laterality Cases: Left: Carpal Tunnel Release, Bilateral: Tonsillectomy, Total Hip Replacement Other Surgeries: Yes: Dilation and Curettage, Other. No: Amputation: No Fractures: No Comment: D&C x2, wisdom teeth - Social History Smoking Status: Former smoker Tobacco Type: cigarettes # Packs/Day (cigarettes): 1 #Yrs smoked (if former smoker): 12 Alcohol Intake: never Alcohol Intake Frequency:: holidays/special occasions onl
== END 2021-01-05 10:14 | disposition home or self-care (01) ==
PROVIDERS: Emergency Provider Nurse Practitioner Family; PCP Internal Medicine Adolescent Medicine
DX: G43.909 Migraine, unspecified, not intractable, without status migrainosus (principal); F41.8 Other specified anxiety disorders; Z88.0 Allergy status to penicillin; Z87.891 Personal history of nicotine dependence
CPT/HCPCS: 96372; 99202; G0463

== ENCOUNTER → 2021-06-22 11:29 | Outpatient (CLI) | payer OTHER, SELFPAY ==
[2021-06-22 15:49] VITALS: BMI 22.8
== END ==
PROVIDERS: PCP Internal Medicine Adolescent Medicine; Visit Provider Nurse Practitioner Family
DX: G43.909 Migraine, unspecified, not intractable, without status migrainosus (principal)

== ENCOUNTER → 2021-08-19 14:07 | Outpatient (CLI) | payer OTHER, SELFPAY ==
--- NOTE | 2021-08-19 14:36 | MR_ITS ---
FINAL REPORT CLINICAL HISTORY: . worsening headaches FINDINGS: Multiple projection images of the brain venous vasculature was performed without contrast. The raw data images were also reviewed. On maximum intensity projection images there is discontinuity posteriorly in the superior sagittal sinus concerning for thrombosis. The left transverse sinus and sigmoid sinus are patent. The right transverse sinus is not well visualized. IMPRESSION: Findings suggesting partial thrombus of the superior sagittal sinus particularly posteriorly. Reviewed, Interpreted and Dictated by Mayur Mosher MD Transcribed by Gregoroi Yeh Authenticated by Mayur Mosher MD on 08/19/2021 04:26:[address] [facility]
--- NOTE | 2021-08-19 14:36 | MR_ITS ---
FINAL REPORT CLINICAL HISTORY: worsening headaches FINDINGS: Multi planar MR imaging was obtained through the brain without contrast. The midline structures appear intact. There is no evidence of Chiari malformation. The brain parenchyma is homogeneous. There are no localized intra-axial signal abnormalities. On T1 imaging there is minimal abnormal signal in the superior sagittal sinus posteriorly seen on images 13-18 of series 7. This may represent a small amount of thrombus. On T2 images there is some signal void present to suggest flow. The paranasal sinuses demonstrate normal signal voids. IMPRESSION: Apparent small amount of thrombus in the superior sagittal sinus posteriorly. Reviewed, Interpreted and Dictated by Mayur Mosher MD Transcribed by Gregorio Yeh Authenticated by Mayur Mosher MD on 08/19/2021 04:26:02 PM [facility]
== END ==
LOC: RAD 14:08
PROVIDERS: PCP Internal Medicine Adolescent Medicine; Visit Provider Nurse Practitioner Family
DX: G43.119 Migraine with aura, intractable, without status migrainosus (principal)
CPT/HCPCS: 70544; 70551

== ENCOUNTER → 2021-08-31 13:26 | Outpatient (CLI) | payer OTHER, SELFPAY ==
--- NOTE | 2021-08-31 13:41 | CT_ITS ---
FINAL REPORT TECHNIQUE: Thin section axial CT with IV contrast supplemented with multiplanar reconstruction under CT angiogram protocol. 3-D reconstructions were performed. This study was performed with techniques to keep radiation doses as low as reasonably achievable (ALARA). Individualized dose reduction techniques using automated exposure control or adjustment of mA and/or kV according to the patient''s size were employed. CLINICAL HISTORY: CEREBRAL VENOUS SINUS THROMBOSIS COMPARISON: MR dated 08/19/2021 FINDINGS: No aneurysm is seen. Major intracranial vessels are patent without significant stenosis. The right transverse sinus is hypoplastic as a normal variant. The other dural venous sinuses appear patent. There is mild irregularity of the posterior/superior sagittal sinus but without evidence of thrombosis. IMPRESSION: Mild irregularity of the posterior/superior sagittal sinus without evidence of thrombosis. Reviewed, Interpreted and Dictated by Ralf Green III, MD Transcribed by Telma Chavez Authenticated by Ralf Green III, MD on 08/31/2021 03:53:37 PM [facility]
== END ==
LOC: RAD 13:26
PROVIDERS: PCP Internal Medicine Adolescent Medicine; Visit Provider Psychiatry & Neurology Neurology
DX: G08 Intracranial and intraspinal phlebitis and thrombophlebitis (principal)
CPT/HCPCS: 70496; Q9967

== ENCOUNTER → 2021-09-20 15:06 | Outpatient (CLI) | payer OTHER, SELFPAY ==
[2021-10-06 16:05] LABS: Factor II, DNA Analysis Not Detected
== END ==
LOC: LAB 15:06
PROVIDERS: PCP Internal Medicine Adolescent Medicine; Visit Provider Internal Medicine Medical Oncology
DX: G43.909 Migraine, unspecified, not intractable, without status migrainosus (principal)
CPT/HCPCS: 36415; 81240; 81241

== ENCOUNTER → 2021-09-22 15:01 | Outpatient (CLI) | payer OTHER, SELFPAY | PROVIDERS: PCP Internal Medicine Adolescent Medicine; Visit Provider Internal Medicine Medical Oncology | DX: Z13.0 Encounter for screening for diseases of the blood and blood-forming organs and certain disorders involving the immune mechanism (principal) | CPT/HCPCS: 36415 ==

== ENCOUNTER → 2022-03-17 06:16 | Outpatient (CLI) | payer OTHER, SELFPAY | PROVIDERS: PCP Family Medicine; Visit Provider Family Medicine | DX: U07.1 COVID-19 (principal) | CPT/HCPCS: C9803; U0003; U0005 ==

== ENCOUNTER → 2022-04-29 14:23 | Outpatient (CLI) | payer OTHER, SELFPAY ==
--- NOTE | 2022-04-29 15:20 | XR_ITS ---
FINAL REPORT CLINICAL HISTORY: Chronic neck pain FINDINGS: CERVICAL SPINE 7 views were obtained including flexion and extension views. There is no acute fracture. There is no malalignment. The disc spaces are preserved. There is no abnormal movement with flexion and extension. There is no soft tissue abnormality. IMPRESSION: No acute bony abnormality. No abnormal movement with flexion and extension. Reviewed, Interpreted and Dictated by Ralf Green III, MD Transcribed by Sophie Alexis Authenticated and . [facility]
--- NOTE | 2022-04-29 16:20 | MR_ITS ---
PROCEDURE INFORMATION: Exam: MR Cervical Spine Without Contrast Exam date and time: 04/29/2022 4:19 PM Age: 31 years old Clinical indication: Pain; Cervicalgia; Additional info: New onset neck pain. Stiffness x 2-3 months. Tingling in finger tips TECHNIQUE: Imaging protocol: Magnetic resonance imaging of the cervical spine without contrast. COMPARISON: CT CERVICAL SPINE WO CON 11/24/2019 8:17 PM FINDINGS: Bones/joints: Unremarkable. Spinal cord: Normal signal. No cord compression. C2-C3: No significant disc disease. No significant spinal stenosis. C3-C4: No significant disc disease. No significant spinal stenosis. C4-C5: No significant disc disease. No significant spinal stenosis. C5-C6: No significant disc disease. No significant spinal stenosis. C6-C7: No significant disc disease. No significant spinal stenosis. C7-T1: No significant disc disease. No significant spinal stenosis. Soft tissues: Unremarkable. Vasculature: Expected flow voids in the vertebral arteries. IMPRESSION: Unremarkable spine.
== END ==
PROVIDERS: PCP Nurse Practitioner Family; Visit Provider Nurse Practitioner Family
DX: M54.2 Cervicalgia (principal); G43.119 Migraine with aura, intractable, without status migrainosus
CPT/HCPCS: 72052; 72141; 76376

== ENCOUNTER 2022-06-10 16:00 | Outpatient (RCR) | payer OTHER, SELFPAY ==
--- NOTE | 2022-05-11 17:51 | HMH.PTOPEV ---
PT Outpatient Evaluation Rehab PT Outpatient Evaluation Start: 05/11/22 17:03 Freq: Status: Active Protocol: Document 05/11/22 17:39 KUMAR (Rec: 05/11/22 17:51 KUMAR [id number]) E-signed By Santhosh Spears, PT Outpatient Therapy Subjective History Subjective History Patient is a 31 year old female presenting to outpatient PT with reports of sub-acute cervical spine pain (approx 3 months) and chronic migraines (approx 15 yrs) of insidious onset. Most recent imaging indicate no bulging discs or degenerative issues. Intermittent numbness and tingling to B hands noted. Observation does indicate straightening of the cervical spine. Comorbidities include hx of narcolepsy. Chief Complaint Pain,Spasms,Stiff,Paresthesia Symptom Type Ache,Dull Symptoms Relieved By Rest/Positioning,Prescription Meds Symptoms Aggravated By Lifting Prior Functional Limitations None Current Functional Limitations Reaching,Lifting,Housework, Desk Work/Reading,Driving, Sleeping,Recreation Activity Level of pain today (0-10) 2 Pain scale - at its best (0-10) 0 Pain scale - at its worst (0-10) 7 Cervical Eval Palpation Cervical Muscles R Suboccipital,L Suboccipital, R Upper Trapezius,L Upper Trapezius Cervical/Thoracic Palpation Findings Tenderness,Spasm,Trigger Point Posture Head/C-Spine Posture Sitting Position C-Spine Flattened Head/C-Spine Posture Standing Position C-Spine Flattened Flexibility Deficits Upper Trapezius Muscle Length (R) Moderate Tightness,(L) Moderate Tightness Levaetor Scapulae Muscle Length (R) Moderate Tightness,(L) Moderate Tightness Pectoralis Minor Muscle Length (R) Moderate Tightness,(L) Moderate Tightness Passive Joint Mobility Cervical PIVM WNL: R OA L OA R AA L AA R C2/3 L C2/3 R C3/4 L C3/4 R C4/5 L C4/5
== END 2022-06-10 16:05 | disposition home or self-care (01) ==
LOC: PT 16:00
PROVIDERS: PCP Nurse Practitioner Family; Visit Provider Nurse Practitioner Family
DX: M54.2 Cervicalgia (principal); G43.119 Migraine with aura, intractable, without status migrainosus
CPT/HCPCS: 20561; 97010; 97014; 97110; 97140; 97163; G0283

== ENCOUNTER → 2022-08-30 09:34 | Outpatient (CLI) | payer OTHER, SELFPAY ==
[2022-08-30 09:57] LABS: Basophils # 0.2 K/mm3 (0-0.2); Basophils % 1.7 % (0.1-2.0); Eosinophils # 0.3 K/mm3 (0.0-0.4); Eosinophils % 3.2 % (0.1-12.0); Lymphocytes # 3.1 K/mm3 (0.7-4.5); Lymphocytes % 29.9 % (10-50); Mean Corpuscular HGB Conc 31.9 g/dL (31.8-35.4); Mean Corpuscular Hemoglobin 30.8 pg (27.0-31.2); Mean Corpuscular Volume 96.5 fl (81-99); Mean Platelet Volume 8.4 fl (7.4-10.4); Monocytes # 0.5 K/mm3 (0.1-1.0); Monocytes % 4.7 % (1.7-9.3); Neutrophils # 6.3 K/mm3 (1.8-7.8); Neutrophils % 60.6 % (37.0-80.0); Platelet Count 284 K/mm3 (142-424); Red Blood Count 4.87 M/mm3 (4.20-5.40); Red Cell Distribution Width 12.6 % (11.5-17.5); White Blood Count 10.4 K/mm3 (4.8-10.8)
[2022-08-30 10:35] LABS: Alanine Aminotransferase 15 U/L (12-78); Albumin Level 4.7 g/dl (3.5-5.0); Alkaline Phosphatase 43 U/L (38-126); Anion Gap 10.3 mEq/L (5-15); Aspartate Amino Transferase 20 U/L (14-36); Bilirubin,Total 0.3 mg/dl (0.2-1.3); Blood Urea Nitrogen 7 mg/dl (7-17); Calcium 9.3 mg/dl (8.4-10.2); Carbon Dioxide 27 mmol/L (22.0-30.0); Chloride 106 mmol/L (98-107); Estimated Glomerular Filt Rate 146 ml/min (>60); GFR (African American) 177 ML/MIN (>60); Globulin 2.4 g/dL (1.3-3.2); Glucose 85 mg/dl (74-100); Potassium 4.3 mmoL/L (3.5-5.1); Sodium 139 mmol/L (136-145); Total Protein,Serum 7.1 g/dl (6.3-8.2)
[2022-08-30 10:57] LABS: HCG,Quantitative < 2 mIU/ml (0-5.42)
[2022-08-31 11:14] LABS: FSH 6.6 mIU/mL (.); LH 12.3 mIU/mL (.)
== END ==
LOC: LAB 09:35
PROVIDERS: PCP Internal Medicine Adolescent Medicine; Visit Provider Nurse Practitioner Obstetrics & Gynecology
DX: Z01.812 Encounter for preprocedural laboratory examination (principal); N92.0 Excessive and frequent menstruation with regular cycle
CPT/HCPCS: 36415; 80053; 83001; 83002; 84702; 85025

== ENCOUNTER 2022-09-01 06:12 | Day surgery (SDC) | payer OTHER, SELFPAY ==
[2022-08-30 11:49] VITALS: BMI 23.0
[2022-09-01] VITALS (10 sets, daily range): BP systolic 107–135; BP diastolic 64–90; PULSE 61–78; RESP 12–20; TEMP 36.1–43; O2SAT 98–100
--- NOTE | 2022-09-01 07:54 | P.PN_ITS ---
[facility] Disclaimer: The information contained in this section may have been updated after the patient was seen, as this information can be updated by other users. Medical History (Updated 09/01/22 @ 06:35 by Evonne Coughlin RN) Narcolepsy Surgical History History of carpal tunnel release History of tonsillectomy and adenoidectomy Hx of dilation and curettage Hx of wisdom tooth extraction Family History (Updated 09/01/22 @ 06:35 by Evonne Coughlin RN) Other Cancer Coronary artery disease Family history of diabetes mellitus type II Family history of myocardial infarction Stroke Social History Smoking Status: Current some day smoker tobacco type: cigarettes packs per day: 1 second hand exposure: No alcohol intake: current substance use type: denies use current occupational status: employed Travel in the last 8 weeks: None household members: family housing: house current occupation: [employer] current occupational exposures/hazards: No caffeine: Yes [facility] Anesthesia Checklist Patient Identification Patient Identification: Verbal (Name & ) Structural Data Admitted From: Home Planned Operative Procedure/s: bilat salpingectomy Consent for Planned Operative Procedure(s) Verified: Yes Additional verifications Anesthesia Reactions: No Hx Blood Transfusions: No Blood Transfusion Reaction: No Airway Assessment C-Spine Mobility Assessed: Yes TMJ Mobility Assessed: Yes Dentition: Good Dentition Neurological Assessment Level of Consciousness: Awake, Alert and Appropriate Anesthesia Plan Anesthesia Risk discussed: Yes Anesthesia Plan: Verified ASA Class: II Anesthesia Type: General
--- NOTE | 2022-09-01 08:24 | EXP.OP.NOTE ---
Date of procedure: 09/01/22 Pre-op Diagnosis:: Desire for sterilization, menorrhagia Post-op Diagnosis:: Desire for sterilization, menorrhagia Procedure performed:: Laparoscopic bilateral salpingectomy, hysteroscopy, dilation and curettage, NovaSure ablation Surgeon:: Gage Dyer MD EXHIBITS CURATOR:: Cb Gilbert Anesthesia: GETA Estimated blood loss (mL): 50 Clinical Note:: She is a 31-year-old lady who expressed desire for sterilization. She also has extremely heavy periods and was offered NovaSure ablation as well. Operative findings:: She had a normal-appearing pelvis. The uterus was somewhat bulky consistent with her previous pregnancies. Ovaries were seen and appeared normal. Tubes appeared normal. The endometrial cavity was normal and sounded to 8 cm. The endometrial cavity length was 5.5 cm the width was 4.3 cm. The endometrium was normal with no evidence of polyps. Operative note:: She was taken to the operating room where general anesthesia was found be adequate. She was prepped and draped in normal sterile fashion in the semilithotomy position. A weighted speculum was placed in the vagina and the anterior lip of the cervix was grasped with a tenaculum. I then inserted a Tata uterine manipulator into the cervical os. The balloon was then insufflated. I changed gloves and injected 10 cc of 0.5% ropivacaine around her umbilicus and made a small incision within the umbilicus. I inserted a Veress needle into the abdominal cavity. The peritoneal cavity was then insufflated with carbon dioxide gas to a pressure of 20 mmHg. I then inserted a 5 millimeter trocar under direct vision. I injected through and through the pubic hairline, made a small incision here and inserted an 8 mm trocar under direct vision. I identified the inferior epigastric artery on the left side, went lateral to these and injected through and through. I then placed a 5 mm trocar here under direct vision. The pelvis and upper abdomen were then inspected and the findings were as previously dictated. I grasped the right tube at the cornua and using harmonic scalpel on coagulation mode I cut through the tube. I then grasped the distal tube and using harmonic scalpel cut along the mesosalpinx. The tube was removed through 8 mm trocar site. This was similarly performed on the patient's left side. I then injected 30 cc of 0.5% ropivacaine into the pelvis. After assuring hemostasis the gas was let out of the abdomen and hemostasis was once again assured. The abdomen was then reinsufflated. The secondary trochars were removed under direct vision. The gas was let out her abdomen. The primary trocar was then removed. The 8 mm trocar site was closed deeply with 2-0 Vicryl suture followed by subcuticular 4-0 Monocryl suture. The 5 mm trocar sites were closed with subcuticular 4-0 Monocryl. Sterile dressings were applied. We then placed her in the lithotomy position and prepared her for the endometrial ablation. She was prepped and draped in the normal sterile fashion in the lithotomy position. A weighted speculum was placed in the vagina and the anterior lip of the cervix was grasped with a tenaculum. The cervix was then dilated to approximately 6 mm. I then inserted a hysteroscope into the uterine cavity and the findings were as previously dictated. I then performed a gentle curettage with a medium curette. I then sounded the uterus and determine the length of the uterus. I then inserted the NovaSure device and determine the width of the endometrial cavity. The endometrial cavity length was 5.5 cm and the width was 4.3 cm. This was placed into the NovaSure device. I then ran the device through its program. I further inspected the endometrial cavity and was found to be completely charred. I then injected 30 cc of 0.5% ropivacaine at the 3:00, 5:00, 7:00, and 9:00 positions of the cervix. She tolerated procedure well and was taken to the recovery room in excellent condition.
--- NOTE | 2022-09-01 08:31 | EXP.ANES.I ---
[facility] Anesthesia Record Part I Anesthesia Record I Intake, IV Amount: 1,200 Estimated blood loss (mL): 0 Urine output (mL): 0 Blood Pressure: 125/80 SaO2: 98 Pulse Rate: 78 Respiratory Rate: 12 Temperature: 97.8 F Patient is:: Awake and Stable Stable to PACU at:: 08:30
[2022-09-05 07:41] VITALS: BP 122/79; PULSE 71; TEMP 36.6
--- NOTE | 2022-09-05 07:41 | EXP.ANES.II ---
[facility] Anesthesia Record Part II Anesthesia Record Part II Discharge Time: 09:00 Destination: Surgical Day Care (OP Surgery) PACU nurse assessment reviewed?: Yes Patient Condition:: Good Anesthesia Complications:: None Swallowing reflex intact?: Yes Cyanosis?: No Blood Pressure: 122/79 Pulse Rate: 71 Temperature: 97.8 F Mental Status: Alert & Oriented Pain level:: 0 Nausea and/or vomitting:: None Intake, IV Amount: 0
== END 2022-09-01 09:35 | disposition home or self-care (01) ==
PROVIDERS: PCP Internal Medicine Adolescent Medicine; Visit Provider Nurse Practitioner Obstetrics & Gynecology
PROC: 0U5B8ZZ Destruction of Endometrium, Via Natural or Artificial Opening Endoscopic (ICD-10-PCS; CPT 58563; principal; 2022-09-01 07:30)
DX: Z30.2 Encounter for sterilization (principal); N92.0 Excessive and frequent menstruation with regular cycle; F17.210 Nicotine dependence, cigarettes, uncomplicated; Z79.899 Other long term (current) drug therapy
CPT/HCPCS: 58563; 58661; 96374; J2405; J2710

== ENCOUNTER → 2022-12-15 23:34 | Outpatient (CLI) | payer OTHER, SELFPAY ==
[2022-12-15 17:44] LABS: T4 (Thyroxine) 7.2 ug/dl (5.53-11.0)
[2022-12-15 17:57] LABS: Thyroid Stimulating Hormone 1.17 uIU/mL (0.465-4.68)
== END ==
PROVIDERS: PCP Internal Medicine Adolescent Medicine; Visit Provider Obstetrics & Gynecology
DX: R09.89 Other specified symptoms and signs involving the circulatory and respiratory systems (principal); R53.83 Other fatigue
CPT/HCPCS: 36415; 84436; 84443

== ENCOUNTER → 2023-06-02 16:44 | Outpatient (CLI) | payer OTHER, SELFPAY ==
[2023-06-02 17:22] LABS: Basophils # 0.1 K/mm3 (0-0.2); Basophils % 0.7 % (0.1-2.0); Eosinophils # 0.1 K/mm3 (0.0-0.4); Eosinophils % 0.8 % (0.1-12.0); Hematocrit 43.3 % (37.0-47.0); Hemoglobin 14.5 g/dL (12.2-16.2); Lymphocytes % 38.7 % (10-50); Mean Corpuscular HGB Conc 33.4 g/dL (31.8-35.4); Mean Corpuscular Hemoglobin 31.4 pg (27.0-31.2); Mean Corpuscular Volume 94.2 fl (81-99); Mean Platelet Volume 8.5 fl (7.4-10.4); Monocytes # 0.4 K/mm3 (0.1-1.0); Monocytes % 5.5 % (1.7-9.3); Neutrophils # 4.2 K/mm3 (1.8-7.8); Neutrophils % 54.3 % (37.0-80.0); Platelet Count 276 K/mm3 (142-424); Red Cell Distribution Width 12.6 % (11.5-17.5); White Blood Count 7.7 K/mm3 (4.8-10.8)
[2023-06-02 19:20] LABS: Uric Acid 2.8 mg/dl (2.5-6.2)
[2023-06-02 19:25] LABS: C-Reactive Protein 0.4 mg/L (0-4)
[2023-06-02 19:50] LABS: Erythrocyte Sedimentation Rate 26 mm/hr (0-20)
[2023-06-04 08:09] LABS: RA Latex Turbid. <10.0 IU/mL (<14.0)
[2023-06-05 11:50] LABS: Anti-Cyclic Citrullinated Pept 0 units (0-19)
[2023-06-05 13:31] LABS: Anti-Centromere B Antibodies <0.2 AI (0.0-0.9); Anti-DNA (DS) Ab Qn 4 IU/mL (0-9); Anti-Jo-1 <0.2 AI (0.0-0.9); Anti-Smith Antibody <0.2 AI (0.0-0.9); Antichromatin Antibodies <0.2 AI (0.0-0.9); Antiscleroderma-70 Antibodies <0.2 AI (0.0-0.9); RNP Antibodies <0.2 AI (0.0-0.9); Sjogren's Anti-SS-A <0.2 AI (0.0-0.9); Sjogren's Anti-SS-B <0.2 AI (0.0-0.9)
[2023-06-05 16:20] LABS: Antinuclear Antibodies, IFA Negative (.)
== END ==
LOC: LAB 16:45
PROVIDERS: PCP Internal Medicine Adolescent Medicine; Visit Provider Obstetrics & Gynecology
DX: M25.50 Pain in unspecified joint (principal)
CPT/HCPCS: 36415; 84550; 85025; 85651; 86038; 86140; 86200; 86225; 86235; 86431

== ENCOUNTER 2024-03-05 14:50 | Outpatient (CLI) | payer OTHER, SELFPAY ==
[2024-03-05 18:34] LABS: Basophils % 0.6 % (0.1-2.0); Eosinophils # 0.1 K/mm3 (0.0-0.4); Eosinophils % 0.9 % (0.1-12.0); Hematocrit 46.2 % (37.0-47.0); Hemoglobin 14.6 g/dL (12.2-16.2); Lymphocytes # 1.9 K/mm3 (0.7-4.5); Lymphocytes % 30.7 % (10-50); Mean Corpuscular HGB Conc 31.7 g/dL (31.8-35.4); Mean Corpuscular Hemoglobin 31.1 pg (27.0-31.2); Mean Corpuscular Volume 98.1 fl (81-99); Mean Platelet Volume 8.5 fl (7.4-10.4); Monocytes # 0.2 K/mm3 (0.1-1.0); Monocytes % 3.8 % (1.7-9.3); Platelet Count 334 K/mm3 (142-424); Red Blood Count 4.71 M/mm3 (4.20-5.40); Red Cell Distribution Width 13.1 % (11.5-17.5); White Blood Count 6.2 K/mm3 (4.8-10.8)
[2024-03-05 19:11] LABS: T4 (Thyroxine) 8.3 ug/dl (5.53-11.0)
[2024-03-05 19:25] LABS: Thyroid Stimulating Hormone 1.21 uIU/mL (0.465-4.68)
[2024-03-05 19:36] LABS: Albumin Level 4.9 g/dl (3.5-5.0); Potassium 4.1 mmoL/L (3.5-5.1)
[2024-03-05 19:39] LABS: Albumin/Globulin Ratio 1.7 (1.1-1.8); Aspartate Amino Transferase 24 U/L (14-36); Bilirubin,Total 0.5 mg/dl (0.2-1.3); Estimated Glomerular Filt Rate 117 ml/min (>60); GFR (African American) 141 ML/MIN (>60); Globulin 2.9 g/dL (1.3-3.2); Glucose 85 mg/dl (74-100); Total Protein,Serum 7.8 g/dl (6.3-8.2)
[2024-03-05 19:54] LABS: Alanine Aminotransferase 17 U/L (12-78); Alkaline Phosphatase 52 U/L (38-126); Anion Gap 11.1 mEq/L (5-15); Blood Urea Nitrogen 6 mg/dl (7-17); C-Reactive Protein < 0.3 mg/L (0-4); Calcium 9.5 mg/dl (8.4-10.2); Carbon Dioxide 27 mmol/L (22.0-30.0); Chloride 104 mmol/L (98-107); Sodium 138 mmol/L (136-145)
[2024-03-05 20:53] LABS: 25-OH Vitamin D, Total 22.7 ng/mL (30-100)
== END 2024-03-05 23:59 | disposition home or self-care (01) ==
LOC: LAB.DROPOF 03-06 14:15
PROVIDERS: PCP Family Medicine; Visit Provider Family Medicine
DX: R20.2 Paresthesia of skin (principal); G43.909 Migraine, unspecified, not intractable, without status migrainosus
CPT/HCPCS: 80050; 80053; 82306; 84436; 84443; 85025; 86140

== ENCOUNTER 2024-03-08 11:30 | Outpatient (CLI) | payer OTHER, SELFPAY ==
[2024-03-08 13:36] LABS: Vitamin B12 533 pg/mL (239-931)
== END 2024-03-08 23:59 | disposition home or self-care (01) ==
LOC: LAB.DROPOF 03-09 19:30
PROVIDERS: PCP Specialist; Visit Provider Specialist
DX: R20.2 Paresthesia of skin (principal); Z68.24 Body mass index [BMI] 24.0-24.9, adult
CPT/HCPCS: 82607; 82746

== ENCOUNTER 2024-03-14 08:55 | Outpatient (CLI) | payer OTHER, SELFPAY ==
--- NOTE | 2024-03-14 08:55 | MR_ITS ---
FINAL REPORT CLINICAL HISTORY: eval for transverse myelitis. headache. numbness on face, hands and legs COMPARISON: 04/29/2022 FINDINGS: Multi planar MR imaging was obtained of the cervical spine with and without contrast. There is mild decreased signal throughout the cervical discs. The vertebrae are of normal height. There is no malalignment. The cervical cord demonstrates normal signal and configuration. C2-C3: There is no evidence of significant disc bulge or protrusion. There is no significant facet hypertrophy. C3-C4: There is no evidence of significant disc bulge or protrusion. There is no significant facet hypertrophy. C4-C5: There is no evidence of significant disc bulge or protrusion. There is no significant facet hypertrophy. C5-C6: There is no evidence of significant disc bulge or protrusion. There is no significant facet hypertrophy. C6-C7: There is no evidence of significant disc bulge or protrusion. There is no significant facet hypertrophy. C7-T1: There is no evidence of significant disc bulge or protrusion. There is no significant facet hypertrophy. There is no abnormal contrast enhancement. IMPRESSION: Mild changes of degenerative disc disease. No evidence of transverse myelitis and no abnormal enhancement. Reviewed, Interpreted and Dictated by Mayur Mosher MD Transcribed by Marisela Slater Authenticated and [facility]
[2024-03-14] MEDS: SODIUM CHLORIDE 0.9% 10ML SYR (RAD ONLY) 10 ML IV (09:36)
[2024-03-14] MEDS: GADOTERIDOL INJ 20ML SYRINGE 12 ML IV (09:36)
== END 2024-03-14 23:59 | disposition home or self-care (01) ==
LOC: RAD 08:55
PROVIDERS: PCP Family Medicine; Visit Provider Specialist
DX: M54.2 Cervicalgia (principal); R20.2 Paresthesia of skin
CPT/HCPCS: 72156; A9576

== ENCOUNTER 2024-04-24 16:29 | Outpatient (CLI) | payer OTHER, SELFPAY ==
--- NOTE | 2024-04-24 16:29 | MR_ITS ---
PROCEDURE INFORMATION: Exam: MR Head Without Contrast Exam date and time: 04/24/2024 4:34 PM Age: 33 years old Clinical indication: Pain; Headache; Migraine; Additional info: Intractable headache TECHNIQUE: Imaging protocol: Magnetic resonance imaging of the head without contrast. COMPARISON: CT ANGIO HEAD 08/31/2021 2:01 PM FINDINGS: Brain: No evidence of restricted diffusion. Cerebral ventricles: Normal. No ventriculomegaly. Bones: Unremarkable. Paranasal sinuses: Normal as visualized. No acute sinusitis. Mastoid air cells: Normal as visualized. No mastoid effusion. Orbital cavities: Unremarkable. Soft tissues: Unremarkable. IMPRESSION: No evidence of acute intracranial abnormality.
== END 2024-04-24 23:59 | disposition home or self-care (01) ==
LOC: RAD 16:29
PROVIDERS: PCP Family Medicine; Visit Provider Specialist
DX: G43.919 Migraine, unspecified, intractable, without status migrainosus (principal)
CPT/HCPCS: 70551

== ENCOUNTER 2024-12-20 14:49 | Outpatient (CLI) | payer OTHER, SELFPAY ==
--- NOTE | 2024-12-20 15:00 | US_ITS ---
FINAL REPORT TECHNIQUE: Sonographic images of the abdomen were performed to the right upper quadrant CLINICAL HISTORY: Upper Abdominal pain FINDINGS: RIGHT UPPER QUADRANT ULTRASOUND Technique: Ultrasound images of the right upper quadrant were obtained. Limited images of the liver parenchyma is normal in echogenicity. There are multiple echogenic nonshadowing foci in the margin of the gallbladder consistent with small polyps. The most conspicuous focus is in the fundus measuring 4 mm. Common duct is normal. The right kidney is unremarkable. IMPRESSION: Gallbladder polyps. Reviewed, Interpreted and Dictated by Mayur Mosher MD Transcribed by Telma Chavez Authenticated and [facility]
== END 2024-12-20 23:59 | disposition home or self-care (01) ==
LOC: RAD 14:50
PROVIDERS: PCP Family Medicine; Visit Provider Obstetrics & Gynecology
DX: K82.4 Cholesterolosis of gallbladder (principal)
CPT/HCPCS: 76705

== ENCOUNTER 2025-01-02 08:49 | Outpatient (POV) | payer OTHER, SELFPAY ==
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
--- OUTSIDE RECORDS SUMMARY | 2025-01-02 08:54 | XMS_ITS | Encounter Summary ---
Author Organization [employer] [facility] Address [address] [place] [address] Care Team Providers Care Glycerin Operator Name Role Phone Unavailable Primary Care Provider Unavailabl e Encounter Details Date Type Department Care Team (Late st Contact Info) Description 01/31/2020 Transcribed Document [facility] Family Medicine [facility] [place] [address] ProviderJason MD [address] [place], [place] [address] Social History Tobacco Use Types Packs/Day Years Used Date Smoking Tobacco: Never Assessed Comments Unknown Sex and Gender Information Value Date Recorded Sex Assigned at Not on file Legal Sex Female 7:00 PM CDT Gender Identity Not on file Sexual Orientation Not on file documented as of this encounter Miscellaneous Notes * Cerner Conversion Note - Historical ProviderMD - 01/31/2020 5:00 AM CDT Chart Check - Review Order Profile Entered On: 01/31/2020 4:03 EDT Performed On: 01/31/2020 5:00 EDT by Day Lowry RN-ALVA Chart Check Powerplans Initiated/Discontinued as Appropriate : Yes All Active Orders Reviewed : Yes Day Lowry RN-TRAVELER - 01/31/2020 4:03 EDT documented in this encounter Plan of Treatment Not on file documented as of this encounter Visit Diagnoses Not on filedocumented in this encounter
--- OUTSIDE RECORDS SUMMARY | 2025-01-02 08:54 | XMS_ITS | Encounter Summary ---
Author Organization [facility] [facility] Address [address] [place] [address] Care Team Providers Care Special Diet Cook Name Role Phone Unavailable Primary Care Provider Unavailabl e Encounter Details Date Type Department Care Team (Late st Contact Info) Description 02/01/2020 Transcribed Document [facility] [place] [facility] [place] [address] ProviderJason MD [address] [place] [id number] Social History Tobacco Use Types Packs/Day Years Used Date Smoking Tobacco: Never Assessed Comments Unknown Sex and Gender Information Value Date Recorded Sex Assigned at Not on file Legal Sex Female 7:00 PM CDT Gender Identity Not on file Sexual Orientation Not on file documented as of this encounter Miscellaneous Notes * Cerner Conversion Note - Historical ProviderMD - 02/01/2020 10:06 AM CDT DATE OF ADMISSION: 01/30/2020 DATE OF DISCHARGE: 02/01/2020 FINAL DIAGNOSES: 1. Nonepileptic episode. 2. Abnormal EEG. HISTORY: This is a 29-year-old woman with recurrent episodic symptoms for the past couple of years. Typically, these occur in the morning. She is unable to focus on tasks and may feel herself floating. She does not lose awareness, but she becomes unfocused and her notices a difference in her appearance. There is no report of any associated motor activity, tongue biting or incontinence. The duration of these episodes varies with some lasting a few hours. PAST MEDICAL HISTORY: 1. Intractable migraine. 2. Head trauma. HOSPITAL COURSE: The patient was admitted and had video EEG monitoring. She had no clinical event. EEG recording showed abnormalities including left temporal sharp waves. DISPOSITION: I discussed the results of monitoring with Ms. Ashley. I went over implications of the EEG findings. I told her however that despite the noted abnormality, I did not think her episodes were epileptic in nature in view of clinical features and prolonged duration. I told her about other possibilities including the nonepileptic etiology and went over possible causes of nonepileptic spells. PHYSICAL EXAMINATION: VITAL SIGNS: On the day of discharge blood pressure 110/55, heart rate 85 per minute and regular. HEENT: Pupils equal and reactive. LUNGS: Clear. HEART: Regular rate and rhythm. Normal peripheral pulses. NEUROLOGIC: She is alert and well oriented. Normal language functions. Normal cranial nerves. Normal motor exam. Normal [id number]. DISCHARGE INSTRUCTIONS: 1. No driving. 2. Multivitamins one tablet daily. 3. Follow up with Dr. Johnson in 3 months. /[id number] MD SINGH Singh/AQ / TAF / MODL /[id number] documented in this encounter Plan of Treatment Not on file documented as of this encounter Visit Diagnoses Not on filedocumented in this encounter
--- OUTSIDE RECORDS SUMMARY | 2025-01-02 08:54 | XMS_ITS | Encounter Summary ---
Author Organization [employer] [facility] Address [address] [place] [address] Care Team Providers Care Spiral Tube Winder Helper Name Role Phone Unavailable Primary Care Provider Unavailabl e Encounter Details Date Type Department Care Team (Late st Contact Info) Description 01/31/2020 Transcribed Document [facility] [place] [facility] [place] [address] ProviderJason MD [address] [place] [id number] Social History Tobacco Use Types Packs/Day Years Used Date Smoking Tobacco: Never Assessed Comments Unknown Sex and Gender Information Value Date Recorded Sex Assigned at Not on file Legal Sex Female 7:00 PM CDT Gender Identity Not on file Sexual Orientation Not on file documented as of this encounter Miscellaneous Notes * Cerner Conversion Note - Jason ProviderMD - 01/31/2020 4:31 PM CDT On Going Discharge Planning Entered On: 01/31/2020 16:31 EDT Performed On: 01/31/2020 16:31 EDT by PHILIP CAMARILLO, RN-Research FellowInsurance Processing Clerk Progress Note Discharge Arrangements : Patient Post-Acute Information Patient Name: THANH MELENDEZ Gender: Female : [birth year] Age: 29 Years No Post-Acute Placement(s) Listed No Post-Acute Service(s) Listed No [place] Referral(s) Listed Barriers to Discharge Identified : Clinical Condition of Patient Barriers to Discharge Unresolved : Clinical Condition of Patient Designation of Choice Signed : No Patient Offered Choice/Affiliations Explained : No Were Referrals Sent to Post Acute Providers : No Does the Patient have a Floor to SNF Benefit? : No Is the Patient Meeting Medical Necessity : Yes Physician Agreeable to Move Forward with D/C Plan? : No Did you Attend Multidisciplinary Rounds? : No PHILIP CAMARILLO RN-Research Fellow - 01/31/2020 16:31 EDT Narrative Progress Note Narrative Progress Note : Continues on EEG monitoring. Historical Progress Note : On continuous EEG monitoring. PHILIP CAMARILLO RN-Research Fellow - 01/30/20 14:48:58 PHILIP CAMARILLO RN-Research Fellow - 01/31/2020 16:31 EDT documented in this encounter Plan of Treatment Not on file documented as of this encounter Visit Diagnoses Not on filedocumented in this encounter
--- OUTSIDE RECORDS SUMMARY | 2025-01-02 08:54 | XMS_ITS | Encounter Summary ---
Author Organization [employer] [facility] Address [address] [place] [address] Care Team Providers Care Monotyper Name Role Phone Unavailable Primary Care Provider Unavailabl e Encounter Details Date Type Department Care Team (Late st Contact Info) Description 01/31/2020 Transcribed Document [facility] Family Medicine [facility] [place] [address] ProviderJason MD [address] [place] [place], [place] [id number] Social History Tobacco Use Types Packs/Day Years Used Date Smoking Tobacco: Never Assessed Comments Unknown Sex and Gender Information Value Date Recorded Sex Assigned at Not on file Legal Sex Female 7:00 PM CDT Gender Identity Not on file Sexual Orientation Not on file documented as of this encounter Miscellaneous Notes * Cerner Conversion Note - Historical ProviderMD - 01/31/2020 9:49 AM CDT UM Authorization Entered On: 01/31/2020 9:50 EDT Performed On: 01/31/2020 9:49 EDT by NICKOLAS LYN RN-Utilization Review Primary Insurance Authorization Authorization and Policy Numbers : Insurance 1 Health Plan: [facility] Policy Number: [id number] Authorization Number: NPR Insurance Primary Name : [facility] Policy Number: [id number] Authorized Service Begin Date-Primary : 01/30/2020 EDT Authorization Comments-Primary : no precert required per STAR notes Historical Authorization Comments-Primary : No Authorization Comments Found NICKOLAS LYN RN-Utilization Review - 01/31/2020 9:49 EDT Electronically signed by Asif Hobbs Conversion Sales Representative [employer] at 11/07/2022 6:40 PM CDT documented in this encounter Plan of Treatment Not on file documented as of this encounter Visit Diagnoses Not on filedocumented in this encounter
--- OUTSIDE RECORDS SUMMARY | 2025-01-02 08:54 | XMS_ITS | Encounter Summary ---
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 Name Role Phone Unavailable Primary Care Provider Unavailabl e Encounter Details Date Type Department Care Team (Late st Contact Info) Description 02/01/2020 Transcribed Document [facility] [place] [facility] [place] [address] ProviderJason [place] [address] Social History Tobacco Use Types Packs/Day Years Used Date Smoking Tobacco: Never Assessed Comments Unknown Sex and Gender Information Value Date Recorded Sex Assigned at Not on file Legal Sex Female 7:00 PM CDT Gender Identity Not on file Sexual Orientation Not on file documented as of this encounter Miscellaneous Notes * Cerner Conversion Note - Jason ProviderMD - 02/01/2020 10:03 AM CDT [address] [place] [address] Patient Copy Patient Information: Name: JC MELENDEZSonia Pedro Current Date: 02/01/2020 10:03:34 : 1990 Patient Address: [place] [address] Patient Attending Physician: FARNAZ NAILS MD-LATISHA Primary Care Provider: Primary Care Provider Phone: Discharge Diagnosis: Abnormal electroencephalogram (EEG); Nonepileptic episode Weight on Admission: 150 lb, 0 oz Comment: Follow-up Instructions: With: Address: When: Angeles Johnson [address] [place] [address] [facility] (1) Within 3 months Discharge Instructions: Immunizations Documented During Stay: No Immunizations Found Heart Failure Discharge Instructions (if any): Stroke Related Discharge Instructions (if any): Warfarin Related Discharge Instructions (if any): Final Medication List: Other Medications multivitamin, ( 1 oral capsule) 1 Capsule(s) Oral Every Day. Patient Allergies: Phenergan; penicillin Medication Instructions: Take your medications faithfully. Do NOT skip medication. Do NOT stop taking medications without the direction of a physician. Carry a list of your medications with you at all times, and take this medication list with you to your first follow up visit. Report any side effects. Avoid herbal remedies unless discussed with your physician. As part of your treatment plan, your physician may have prescribed a limited course of a controlled substance. This medication may be given to help people with moderate or severe pain or for other medical conditions, but there are risks involved with treatment. Common side effects may include nausea, constipation, drowsiness, sweating, itching, dry mouth, and rash. More serious side effects may include cognitive and motor impairment, like problems with thinking, concentrating, alertness, and movement (e.g. slowed reflexes), and driving and operating heavy machinery can be dangerous. It is important for you to talk to your physician if you have these side effects or questions. These controlled substances can produce physical dependence and be habit-forming if taken for an extended period of time, which means that the body has gotten used to them and may experience withdrawal symptoms if they are abruptly stopped. Withdrawal symptoms can include runny nose, sweating, goose bumps, diarrhea, abdominal cramping, rapid heartbeat, difficulty sleeping, and nervousness. CIGARETTE SMOKING: The facts are clear, cigarette smoking will shorten your life. Smoking can cause many illnesses along the way. As a healthcare provider, we recommend that you stop smoking. Assistance with quitting is available by contacting 4-746-RGCG-NOW. This is a free resource providing counseling, support, and referral. Or you may contact your personal physician. 4 WAYS TO GET AHEAD OF SEPSIS SEPSIS is a MEDICAL EMERGENCY. Time matters! Infections put you and your family at risk for a life-threatening condition called sepsis. Sepsis is the body???s extreme response to an infection. It is life-threatening, and without timely treatment, sepsis can rapidly lead to tissue damage, organ failure, and . Sepsis happens when an infection you already have???in your skin, lungs, urinary tract or somewhere else???triggers a chain reaction throughout your body. 1 PREVENT INFECTIONS Take good care of chronic conditions. Talk to your doctor about getting the recommended vaccines. 2 PRACTICE GOOD HYGIENE Wash your hands frequently. Keep cuts or open sores clean and covered until they are healed. 3 KNOW THE SYMPTOMS Confusion or disorientation Shortness of breath High heart rate Fever, shivering, or feeling very cold Extreme pain or discomfort Clammy or sweaty skin 4 ACT FAST Get medical care IMMEDIATELY if you suspect sepsis or if you have an infection that???s not getting better or is getting worse. To learn more about sepsis and how to prevent infections, visit www.cdc.gov/sepsis. STROKE is an EMERGENCY Every Minute Counts ACT F.A.S.T! FACE ?? Facial droop ?? Uneven smile ARM ?? Arm numbness ?? Arm weakness SPEECH ?? Slurred speech ?? Difficulty speaking or understanding TIME ?? Call 911 and get to the hospital immediately Have the ambulance go to the nearest stroke center. STROKE Risk Factors High blood pressure High cholesterol Heart Disease Diabetes Smoking Heavy alcohol use Physical inactivity and obesity Atrial Fibrillation (irregular heartbeat) Family history of stroke Reminder: Be sure to sign up for the [employer] patient portal, which gives you 13/02 access to your medical information ??? including these discharge instructions ??? using your computer, smartphone, or tablet. Just go to [employer] to get started. Questions? Call . [facility] would like to thank you for allowing us to assist you with your healthcare needs. NORA Ferreira LAURA K, (or human resources representative) have received the above patient education materials/instructions and have verbalized understanding: Patient Signature _ Date/Time Patient Sorter Packer Signature (if needed) Date/Time Clinician/Hospital Sorter Packer Signature (if needed) Date/Time documented in this encounter Plan of Treatment Not on file documented as of this encounter Visit Diagnoses Not on filedocumented in this encounter
--- OUTSIDE RECORDS SUMMARY | 2025-01-02 08:54 | XMS_ITS | Encounter Summary ---
Author Organization [employer] Address [address] [place] [address] Care Team Providers Care Patternmaker Pressure Cast Name Role Phone Unavailable Primary Care Provider Unavailabl e Encounter Details Date Type Department Care Team (Late st Contact Info) Description 02/01/2020 Transcribed Document [facility] [place] [facility] [place] [address] ProviderJason MD [address] [place] [address] Social History Tobacco Use Types Packs/Day Years Used Date Smoking Tobacco: Never Assessed Comments Unknown Sex and Gender Information Value Date Recorded Sex Assigned at Not on file Legal Sex Female 7:00 PM CDT Gender Identity Not on file Sexual Orientation Not on file documented as of this encounter Miscellaneous Notes * Cerner Conversion Note - Jason Willis MD - 02/01/2020 10:58 AM CDT [facility] [place] [address] THANH MELENDEZ :1990 Visit Time:01/30/2020 Your Visit Summary Your Care Team Admitting Physician - FARNAZ NAILS MD-NEU Attending Physician - FARNAZ NAILS MD-NEU Referring Physician - FARNAZ NAILS MD-NEU Your Diagnosis Abnormal electroencephalogram (EEG) Nonepileptic episode Discharge Vitals Temperature 36.9 ??C Heart Rate (Monitored) 85 Respiratory Rate 20 Blood Pressure 100/55 What to do next Instructions From Your Care Team Discharge Activity: No driving, Discharge Activity: Other (use Special Instructions) Diet: Discharge Diet: Regular diet as tolerated Follow-Up Appointments Follow Up with Angeles Johnson When Within 3 months Where: [address] [place] [address]- [facility] (1) Medications What How Much When Instructions Next Dose multivitamin, ( 1 oral capsule) 1 Capsule(s) Oral Every Day Take your medications faithfully. Do NOT skip [...] cramping, rapid heartbeat, difficulty sleeping, and nervousness. Please dispose of unused and medications per your retail pharmacy guidance. Allergies Phenergan penicillin Immunizations This Visit No Immunizations Found Education Materials Epilepsy Epilepsy is when a person keeps having seizures. A seizure is a burst of abnormal activity in the brain. A seizure can change how you think or behave, and it can make it hard to be aware of what is happening. This condition can cause problems such as: ??? Falls, accidents, and injury. ??? Sadness (depression). ??? Poor memory. ??? Sudden unexplained in epilepsy (SUDEP). This is rare. Its cause is not known. Most people with epilepsy lead normal lives. What are the causes? This condition may be caused by: ??? A head injury. ??? An injury that happens at . ??? A high fever during childhood. ??? A stroke. ??? Bleeding that goes into or around the brain. ??? Certain medicines and drugs. ??? Having too little oxygen for a long period of time. ??? Abnormal brain development. ??? Certain infections. ??? Brain tumors. ??? Conditions that are passed from parent to child (are hereditary). What are the signs or symptoms? Symptoms of a seizure vary from person to person. They may include: ??? Jerky movements of muscles (convulsions). ??? Stiffening of the body. ??? Movements of the arms or legs that you are not able to control. ??? Passing out (loss of consciousness). ??? Breathing problems. ??? Sudden falls. ??? Confusion. ??? Head nodding. ??? Eye blinking or twitching. ??? Lip smacking. ??? Drooling. ??? Fast eye movements. ??? Grunting. ??? Not being able to control when you pee or poop. ??? Staring. ??? Being hard to wake up (unresponsiveness). Some people have symptoms right before a seizure happens (aura) and right after a seizure happens. These symptoms include: ??? Fear or anxiety. ??? Feeling sick to your stomach (nauseous). ??? Feeling like the room is spinning (vertigo). ??? A feeling of having seen or heard something before (d??j?? vu). ??? Odd tastes or smells. ??? Changes in how you see (vision), such as seeing flashing lights or spots. Symptoms that follow a seizure include: ??? Being confused. ??? Being sleepy. ??? Having a headache. How is this treated? Treatment can control seizures. Treatment for this condition may involve: ??? Taking medicines to control seizures. ??? Having a device (vagus nerve stimulator) put in the chest. The device sends signals to a nerve and to the brain to prevent seizures. ??? Brain surgery to stop seizures from happening or to reduce how often they happen. ??? Having blood tests often to make sure you are getting the right amount of medicine. Once this condition has been diagnosed, it is important to start treatment as soon as possible. For some people, epilepsy goes away in time. Others will need treatment for the rest of their life. Follow these instructions at home: Medicines ??? Take yqjk-fmu-[id number] and prescription medicines only as told by your doctor. ??? Avoid anything that may keep your medicine from working, such as alcohol. Activity ??? Get enough rest. Lack of sleep can make seizures more likely to occur. ??? Follow your doctor's advice about driving, swimming, and doing anything else that would be dangerous if you had a seizure. ? If you live in the [place] check with your local DMV (department of [employer]) to find out about local driving laws. Each state has rules about when you can return to driving. Teaching others Teach friends and family what to do if you have a seizure. They should: ??? Lay you on the ground to prevent a fall. ??? Cushion your head and body. ??? Loosen any tight clothing around your neck. ??? Turn you on your side. ??? Stay with you until you are better. ??? Not hold you down. ??? Not put anything in your mouth. ??? Know whether or not you need emergency care. General instructions ??? Avoid anything that causes you to have seizures. ??? Keep a seizure diary. Write down what you remember about each seizure. Be sure to include what might have caused it. ??? Keep all follow-up visits as told by your doctor. This is important. Contact a doctor if: ??? You have a change in how often or when you have seizures. ??? You get an infection or start to feel sick. You may have more seizures when you are sick. Get help right away if: ??? A seizure does not stop after 5 minutes. ??? You have more than one seizure in a row, and you do not have enough time between the seizures to feel better. ??? A seizure makes it harder to breathe. ??? A seizure is different from other seizures you have had. ??? A seizure makes you unable to speak or use a part of your body. ??? You did not wake up right after a seizure. These symptoms may be an emergency. Do not wait to see if the symptoms will go away. Get medical help right away. Call your local emergency services (911 in the [place] Do not drive yourself to the hospital. Summary ??? Epilepsy is when a person keeps having seizures. A seizure is a burst of abnormal activity in the brain. ??? Treatment can control seizures. ??? Teach friends and family what to do if you have a seizure. This information is not intended to replace advice given to you by your health care provider. Make sure you discuss any questions you have with your health care provider. Document Released: 05/07/2010 Document Revised: 03/04/2019 Document Reviewed: 03/04/2019 [employer] Interactive Patient Education ?? 2020 [employer]. Coping With Non-Epileptic Seizures Epileptic seizures are caused by abnormal electrical activity in the brain, but not all seizures are caused by epilepsy. Seizures that are not caused by epilepsy are called non-epileptic seizures, and there are two types: ??? Physiologic non-epileptic seizure. This is also called provoked seizure or organic seizure. This type of seizure stops when the cause goes away or is treated. Possible causes include: ? High fever. ? High or low blood sugar (glucose). ? Brain injury. ? Brain infection. ??? Psychogenic non-epileptic seizure (PNES). This can be caused by a mental disturbance (psychological distress), not by abnormal brain activity or brain injury. This may look similar to other types of seizures. A PNES may be called an event or attack instead of a seizure. Possible causes include: ? Stress. ? Major life events, such as divorce or of a loved one. ? Post-traumatic stress disorder (PTSD). ? Physical or sexual abuse. ? Mental health disorders, including anxiety and depression. General treatment recommendations Physiologic non-epileptic seizure ??? If you have physiologic non-epileptic seizures, your health care provider will treat the cause. These seizures are not likely to return, and they do not need further treatment. PNES ??? Your health care provider may suspect PNES if you: ? Have seizures that keep coming back (recurring) and do not respond to seizure medicines. ? Do not show any abnormal brain activity during electrical brain activity testing (electroencephalogram, EEG). ??? It is very important to understand that PNES is a real illness. It does not mean that the seizure is fake. It just means that the cause is different. PNES can be treated. ??? You may be referred to a mental health specialist (psychiatrist). This is because PNES is a mental health disorder. Mental health treatment may include: ? Talk therapy (cognitive behavioral therapy, CBT). This is the most effective treatment. Through CBT, you will learn to identify and manage the psychological distress that leads to seizures. ? Stress reduction and relaxation techniques. ? Family therapy. ? Medicines to treat depression or anxiety. ??? In many cases, knowing that seizures are not caused by epilepsy reduces or stops seizures. How to manage lifestyle changes Managing stress Certain types of counseling can be very helpful for managing stress. A mental health professional can assess what other treatments may also help you, such as: ??? Cognitive behavioral therapy. ??? Medicine to treat depression or anxiety. ??? Biofeedback. This uses signals from your body (physiological responses) to help you learn to regulate anxiety. ??? Meditation. ??? Yoga. Consider self-care strategies to lower stress levels, such as: ??? Talking with a trusted friend or family member about your thoughts and feelings. ??? Muscle relaxation and breathing exercises. ??? Trying activities to relieve stress, such as: ? Deep breathing. ? Listening to music. ? Exercising or taking a walk. ? Writing in a journal. ? Creating artwork. Medicines Medicines may be prescribed to treat depression or anxiety that causes non-epileptic seizures. Avoid using alcohol and other substances that may prevent your medicines from working properly (may interact). It is also important to: ??? Talk with your pharmacist or health care provider about all the medicines that you take, their possible side effects, and what medicines are safe to take together. ??? Make it your goal to take part in all treatment decisions (shared decision-making). Ask about possible side effects of medicines that your health care provider recommends, and tell him or her how you feel about having those side effects. It is best if shared decision-making with your health care provider is part of your total treatment plan. Relationships Make sure family members, friends, and coworkers are trained how to help you if you have a seizure. If you have a seizure, people near you should: ??? Lay you on the ground to prevent a fall. ??? Place a pillow or piece of clothing under your head. ??? Loosen any tight clothing, especially around your neck. ??? Turn you onto your side. If vomiting occurs, this helps keep your airway clear. Make sure people do not try to hold you down, keep you still, or put anything in your mouth during a seizure. General instructions ??? Take miyj-ktg-bkozdob and prescription medicines only as told by your health care provider. ??? Ask your health care provider if it is safe for you to drive. ??? Return to your normal activities as told by your health care provider. Ask your health care provider what activities are safe for you. ??? Keep all follow-up visits as told by your health care providers. This is important. Where to find support You can get support for coping with non-epileptic seizures from: ??? Epilepsy Foundation: www.epilepsy.com ??? FND Hope: www.fndhope.org ??? Support groups, online or in-person. Your health care provider may be able to recommend a support group in your area. Contact a health care provider if: ??? Your seizures change or become more frequent. ??? You continue to have seizures after treatment. Get help right away if: ??? You injure yourself during a seizure. ??? You have one seizure after another. ??? You have trouble recovering from a seizure. ??? You have chest pain or trouble breathing. ??? You have a seizure that lasts longer than 5 minutes. Summary ??? Seizures that are not caused by epilepsy are called non-epileptic seizures. The two types of non-epileptic seizures are physiologic non-epileptic seizure and psychogenic non-epileptic seizure (PNES). ??? PNES is a treatable mental health disorder that is caused by psychological distress. It is very important to work with your mental health provider to find a treatment that works for you. ??? Learning to cope with stress and anxiety is an important part of PNES treatment. ??? Make sure family members, friends, and coworkers are trained how to help you if you have a seizure. If you have a seizure, they should lay you on the ground to prevent a fall, protect your head and neck, and turn you onto your side. This information is not intended to replace advice given to you by your health care provider. Make sure you discuss any questions you have with your health care provider. Document Released: 03/06/2018 Document Revised: 03/06/2018 Document Reviewed: 03/06/2018 [employer] Interactive Patient Education ?? 2019 [employer]. Emergency Awareness and Preventative Care STROKE is an EMERGENCY Every Minute Counts Act FAST and Check for these signs: FACE Does the face look uneven? ARM Does one arm drift down? SPEECH Does their speech sound strange? TIME Call at any sign of stroke Stroke Risk Factors Atrial Fibrillation (irregular heartbeat) Diabetes Family history of stroke Heart Disease Heavy alcohol use High Blood Pressure High Cholesterol Physical inactivity and obesity Smoking Cigarette Smoking The facts are clear, cigarette smoking will shorten your life. Smoking can cause many illnesses along the way. As a healthcare provider, we recommend that you stop smoking. Assistance with quitting is available by contacting 5-907-GUUC-NOW. This is a free resource providing counseling, support, and referral. Or you may contact your personal physician. National Suicide Prevention Lifeline: The National Suicide Prevention Lifeline is a national network of local crisis centers that provides free and confidential emotional support to people in suicidal crisis or emotional distress 24 hours a day, 7 days a week. Don't Wait! Stop a Heart Attack Before it Starts What is a heart attack? A heart attack is damage or to a part of the heart from severely decreased or lack of blood flow to the heart. Over time, arteries can become narrow from the buildup of fat and cholesterol, which is called plaque. The plaque can rupture causing a blood clot to form. When the blood clot forms, the artery can become severely narrowed or completely blocked, causing a heart attack. Heart attack is the leading cause of in the [place]. 85% of muscle damage occurs within the first 2 hours. Delay in the recognition of heart attack symptoms increases the chances of . Know the early symptoms of a heart attack: Nausea Feeling of fullness in chest Jaw Pain Pain that travels down one or both arms Fatigue/being tired Anxiety Back Pain Chest pressure, squeezing, or discomfort Shortness of breath Sweating, or a cold sweat Feeling of impending doom There are unusual signs of a heart attack, too! Women, the elderly, and diabetics may present with atypical symptoms: Fainting/dizziness Weakness Confusion Risk Factors for a Heart Attack Some heart disease risk factors, such as age and family history, cannot be changed. Others, like smoking and lack of exercise, can be changed. Smoking High Cholesterol High Blood Pressure Family History Obesity Age Gender (Males are at higher risk) Lack of Exercise Diabetes Diet Stress Excessive Alcohol Intake If you or someone you know is experiencing the signs and symptoms of a heart attack, DON???T DELAY. Call immediately and seek help. If someone collapses, perform CPR! Do not attempt to drive if you are having symptoms of heart attack. Hands-Only CPR Why Hands-Only CPR? Hands-Only CPR has been shown to be as effective as conventional CPR for cardiac arrests that occur outside of a hospital. Survival depends on immediately receiving CPR from someone nearby. How do you perform Hands-Only CPR? There are two easy steps: Call if you see a teen or adult collapse Push hard and fast in the center of the chest at a beat of 100 beats per minute. Save a life! 4 WAYS TO GET AHEAD OF SEPSIS SEPSIS is a MEDICAL EMERGENCY. Time matters! Infections put you and your family at risk for a life-threatening condition called sepsis. Sepsis is the body's extreme response to an infection. It is life-threatening, and without timely treatment, sepsis can rapidly lead to tissue damage, organ failure, and . Sepsis happens when an infection you already have-in your skin, lungs, urinary tract or somewhere else-triggers a chain reaction throughout your body. 1 [...] sepsis or if you have an infection that is not getting better or is getting worse. To learn more about sepsis and how to prevent infections, visit www.cdc.gov/sepsis. Test Results Laboratory or Other Results This Visit (last charted value for your 01/30/2020 visit) No Laboratory or Other Results This Visit Patient Name:THANH MELENDEZ I have received and understand this information and was given the opportunity to ask questions. Patient/Racing Driver Name: Patient/Racing Driver Signature: Relationship to Patient: Clinician/Hospital Racing Driver Signature: Date: documented in this encounter Plan of Treatment Not on file documented as of this encounter Visit Diagnoses Not on filedocumented in this encounter
--- OUTSIDE RECORDS SUMMARY | 2025-01-02 08:54 | XMS_ITS | Encounter Summary ---
Author Organization [employer] Address [address] [place] [address] Care Team Providers Care Ingredient Specialist Name Role Phone Unavailable Primary Care Provider Unavailabl e Encounter Details Date Type Department Care Team (Late st Contact Info) Description 01/30/2020 Transcribed Document [facility] [place] [facility] [place] [address] ProviderJason MD [facility] [place] [address] Social History Tobacco Use Types Packs/Day Years Used Date Smoking Tobacco: Never Assessed Comments Unknown Sex and Gender Information Value Date Recorded Sex Assigned at Not on file Legal Sex Female 7:00 PM CDT Gender Identity Not on file Sexual Orientation Not on file documented as of this encounter Miscellaneous Notes * Cerner Conversion Note - Jason ProviderMD - 01/30/2020 2:47 PM CDT Initial Discharge Planning Entered On: 01/30/2020 14:48 EDT Performed On: 01/30/2020 14:47 EDT by PHILIP CAMARILLO RN-Photographer News Initial Assessment I Previously Documented Living Environment : No qualifying data available. Living Situation : Home Patient Lives With : Spouse Is the Patient a Caregiver at Home? : No Emergency Contact #1 : Milind Dodd Emergency Contact #1 Emergency Contact #1 Relationship : Does Patient have PCP Listed? : Yes Legal Guardian : No Is Guardianship Needed : No PHILIP CAMARILLO, RN-Photographer News - 01/30/2020 14:47 EDT Initial Assessment II Sensory and Motor Deficits : None Current Home Treatments and Equipment : None Does the Patient have a Floor to SNF Benefit? : No PHILIP CAMARILLO RN-Photographer News - 01/30/2020 14:47 EDT Discharge Needs I Anticipated Discharge Date : 02/02/2020 EDT Anticipated Discharge To, CM : Home with family care Current Home Treatment/Equipment : Current Home Treatment/Equipment No qualifying data available. Post Acute/Home Treatments : None Documentation Status Complete : Yes PHILIP CAMARILLO RN-Photographer News - 01/30/2020 14:47 EDT Discharge Needs II Professional Skilled Services : Professional Skilled Services No qualifying data available. Needs Assistance with Transportation : No PHILIP CAMARILLO RN-Photographer News - 01/30/2020 14:47 EDT Narrative Note Narrative Note : No discharge needs noted. PHILIP CAMARILLO RN-Photographer News - 01/30/2020 14:47 EDT documented in this encounter Plan of Treatment Not on file documented as of this encounter Visit Diagnoses Not on filedocumented in this encounter
--- OUTSIDE RECORDS SUMMARY | 2025-01-02 08:54 | XMS_ITS | Encounter Summary ---
Author Organization [employer] Address [address] [place] [id number] Care Team Providers Care Bricklayer Paving Brick Name Role Phone Unavailable Primary Care Provider Unavailabl e Encounter Details Date Type Department Care Team (Late st Contact Info) Description 01/30/2020 Transcribed Document [facility] [place] [facility] [place] [address] ProviderJason MD [address] [place] [id number] Social History Tobacco Use Types Packs/Day Years Used Date Smoking Tobacco: Never Assessed Comments Unknown Sex and Gender Information Value Date Recorded Sex Assigned at Not on file Legal Sex Female 7:00 PM CDT Gender Identity Not on file Sexual Orientation Not on file documented as of this encounter Miscellaneous Notes * Cerner Conversion Note - Jason ProviderMD - 01/30/2020 2:48 PM CDT On Going Discharge Planning Entered On: 01/30/2020 14:48 EDT Performed On: 01/30/2020 14:48 EDT by PHILIP CAMARILLO, RN-Plumber MaintenanceChain Saw Mechanic Progress Note Discharge Arrangements : Patient Post-Acute [...] you Attend Multidisciplinary Rounds? : No PHILIP CAMARILLO, RN-Plumber Maintenance - 01/30/2020 14:48 EDT Narrative Progress Note Narrative Progress Note : On continuous EEG monitoring. PHILIP CAMARILLO RN-Plumber Maintenance - 01/30/2020 14:48 EDT documented in this encounter Plan of Treatment Not on file documented as of this encounter Visit Diagnoses Not on filedocumented in this encounter
--- OUTSIDE RECORDS SUMMARY | 2025-01-02 08:54 | XMS_ITS | Encounter Summary ---
Author Organization [employer] Address [address] [place] [address] Care Team Providers Care Preschool Paraprofessional Name Role Phone Unavailable Primary Care Provider Unavailabl e Encounter Details Date Type Department Care Team (Late st Contact Info) Description 01/31/2020 Transcribed Document [facility] [place] [facility] [place] [address] ProviderJason MD [address] [place] [address] [id number] Social History Tobacco Use Types Packs/Day Years Used Date Smoking Tobacco: Never Assessed Comments Unknown Sex and Gender Information Value Date Recorded Sex Assigned at Not on file Legal Sex Female 7:00 PM CDT Gender Identity Not on file Sexual Orientation Not on file documented as of this encounter Miscellaneous Notes * Cerner Conversion Note - Jason ProviderMD - 01/31/2020 10:34 AM CDT DATE OF SERVICE: 01/30/2020 REPORT TYPE: EEG REFERRING PHYSICIAN: Chilango Hendricks MD REPORT TITLE: Video Electroencephalogram Report STUDY DURATION: One day. HISTORY: This is a 29-year-old woman being evaluated for recurrent seizures. EEG VIDEO MONITORING METHODOLOGY: Time-locked EEG-video monitoring was performed using the 32-channel eshtery monitoring system. The seizure detection computer was used for detection of ictal discharges (subclinical and clinical), interictal discharges, and to record ictal events that were documented by depression of the event button in the patient's room. Analyses of the monitoring data were performed using the following techniques: Review of the relevant EEG-video data. Review of events detected by the computer system in detail. Review of clinical seizures, with both detailed review of EEG and video and playback using multiple montages. A variety of referential and bipolar montages were used. CLINICAL AND EEG ANALYSIS: There was no event reported during the period of monitoring. TIME SAMPLES: The recording was reviewed. During wakefulness, 10 to 11 Hz activity is seen posteriorly. Lower amplitude faster activity in the beta range is noted with a wider distribution. 4 to 5 Hz theta waves are noted at F7-T7-P7. Similar activity is noted less prominently independently at F8-T8. During sleep, well-formed sleep spindles are seen in both hemispheres. SPIKE DETECTION: The spike detection program was activated during the period of monitoring. There were occasional sharp waves seen independently at F7-T7, with a field intermittently involving P7, Fp2-F4-F8 with a field intermittently involving T8 and P8-O2. Rare sharp waves are seen more posteriorly in the left hemisphere at P7-O1. EEG DIAGNOSIS: This is an abnormal video EEG study because of: 1. Focal slow wave activity seen independently at F7-T7-P7 and F8-T8-P8, more commonly in the former. 2. Occasional sharp waves seen independently in both hemispheres at F7-T7-P7, Fa6-O7-Y6-T8, P8-O2 and less frequently at P7-O1. CLINICAL INTERPRETATION: The patient had no clinical event during the period of monitoring. Continuous EEG recordings showed no electrographic ictal discharge. EEG recordings showed focal slow wave activity in the temporal electrodes in both hemispheres, more prominent on the left, indicative of focal cerebral dysfunction in the temporal regions, more prominent on the left. There were epileptiform discharges seen independently in both hemispheres in the left temporal, right frontotemporal, right posterior temporal-occipital and to lesser extent left posterior temporal-occipital regions. These suggest the possibility of multifocal potential epileptogenicity in both hemispheres. /[id number] MD SINGH Singh/AQ / TAF / MODL /[id number] documented in this encounter Plan of Treatment Not on file documented as of this encounter Visit Diagnoses Not on filedocumented in this encounter
--- OUTSIDE RECORDS SUMMARY | 2025-01-02 08:54 | XMS_ITS | Encounter Summary ---
Author Organization [employer] Address [address] [place] [address] Care Team Providers Care Banquet Captain Name Role Phone Unavailable Primary Care Provider Unavailabl e Encounter Details Date Type Department Care Team (Late st Contact Info) Description 01/30/2020 Transcribed Document [facility] [place] [address] ProviderJason MD [address] [place] [address] Social History Tobacco Use Types Packs/Day Years Used Date Smoking Tobacco: Never Assessed Comments Unknown Sex and Gender Information Value Date Recorded Sex Assigned at Not on file Legal Sex Female 7:00 PM CDT Gender Identity Not on file Sexual Orientation Not on file documented as of this encounter Miscellaneous Notes * Cerner Conversion Note - Historical ProviderMD - 01/30/2020 3:27 PM CDT EPILEPSY ADMISSION NOTE DATE OF ADMISSION: 01/30/2020 ADMITTING PHYSICIAN: FARNAZ NAILS MD HISTORY OF PRESENT ILLNESS: This is a 29-year-old woman who has had recurrent episodic symptoms for the past couple of years. She has a long history of intractable migraine resistant to multiple medications. Her episodic symptoms occur typically in the morning. She feels unable to focus on tasks and may feel herself floating around. She does not lose awareness. However, her reports to her that she looks different and unfocused. There is no report of associated unusual motor activity, tongue biting, or incontinence. PAST MEDICAL HISTORY: 1. Head trauma. 2. Intractable migraine. 3. Carpal tunnel syndrome. ALLERGIES: 1. Penicillin. 2. Phenergan. MEDICATIONS: vitamin. PAST SURGICAL HISTORY: 1. Tonsillectomy. 2. Dilatation and curettage. FAMILY HISTORY: Epilepsy. SOCIAL HISTORY: She drinks alcohol on occasion. She does not smoke tobacco at present. REVIEW OF SYSTEMS: She has had frequent headaches. She denies symptoms referable to the cardiac, pulmonary, gastrointestinal systems. She has had knee pain. She has symptoms of depression and anxiety, but denies suicidal ideation. She reports difficulties with short-term memory functions. She reports intermittent blurring of vision as well as intermittent ringing in her left ear. She reports facial tingling. PHYSICAL EXAMINATION: VITAL SIGNS: Blood pressure 122/64, heart rate 64 per minute and regular. HEENT: Pupils equal and reactive. NECK: Supple. Normal carotid pulses. LUNGS: Clear. HEART: Regular rate and rhythm. Normal peripheral pulses. NEUROLOGIC: She is alert and well oriented. Normal language functions. Normal cranial nerves. Full range of motion of extraocular muscles with no nystagmus. Symmetric facial contractions. Normal tongue movements. MOTOR EXAM: Her motor examination was normal with normal strength in the upper and lower extremities. DTR: Deep tendon reflexes were symmetric in the upper and lower extremities SENSORY EXAM: Intact to pinprick and light touch COORDINATION: Normal msqbki-ha-ejvp. Normal rapid alternating movements. GAIT: Normal, including tandem walking IMPRESSION: Ms. Ashley has had recurrent fairly stereotypical episodic symptoms that may involve altered awareness. These episodes may represent focal seizures with impaired awareness. Alternatively, these may be nonepileptic spells that may not be related to migraine. The patient informed today that she is eight weeks . I discussed the situation with Ms. Ashley. I went over the classification of seizures with her. I also discussed with her the differential diagnosis of seizures in general, and her spells in particular. I emphasized the possibility of a nonepileptic etiology and went over possible causes of nonepileptic spells. PLAN: 1. Admit to the epilepsy monitoring unit. 2. Start video EEG monitoring. 3. Seizure precautions. 4. Continue vitamins. 5. Tylenol 650 mg every 6 hours p.r.n. for headache or pain. /[id number] MD SINGH Singh/HARMAN / TAF / MODL Electronically signed by Interface, [facility] Conversion Family Dinner Service Specialist Cerner at 11/07/2022 6:23 PM CDT documented in this encounter Plan of Treatment Not on file documented as of this encounter Visit Diagnoses Not on filedocumented in this encounter
--- OUTSIDE RECORDS SUMMARY | 2025-01-02 08:54 | XMS_ITS | Encounter Summary ---
Author Organization [employer] Address [address] [place] [address] Care Team Providers Care Sales Contracts Analyst Name Role Phone Unavailable Primary Care Provider Unavailabl e Encounter Details Date Type Department Care Team (Late st Contact Info) Description 02/01/2020 Transcribed Document [facility] [place] [facility] [place] [address] ProviderJason MD [address] [place] [address] [id number] Social History Tobacco Use Types Packs/Day Years Used Date Smoking Tobacco: Never Assessed Comments Unknown Sex and Gender Information Value Date Recorded Sex Assigned at Not on file Legal Sex Female 7:00 PM CDT Gender Identity Not on file Sexual Orientation Not on file documented as of this encounter Miscellaneous Notes * Cerner Conversion Note - Jason ProviderMD - 02/01/2020 10:55 AM CDT DATE OF SERVICE: 02/01/2020 REPORT TYPE: EEG REFERRING PHYSICIAN: Chilango Hendricks MD REPORT TITLE: Video Electroencephalogram Report STUDY DURATION: Four hours. HISTORY: This is a 29-year-old woman being evaluated for recurrent seizures. EEG VIDEO MONITORING METHODOLOGY: Time-locked EEG-video monitoring was performed using the 32-channel [employer] monitoring system. The seizure detection computer was [...] The recording was reviewed. During wakefulness, 10 Hz activity is seen posteriorly. 4 to 5 Hz theta waves and less frequent 2 to 3 Hz delta waves are seen at F7-T7. Similar activity is noted less prominently independently at F8-T8. Sleep was recorded with the appearance of well-formed sleep spindles in both hemispheres. SPIKE DETECTION: The spike detection program was activated during the period of monitoring. Occasional sharply contoured slow waves and sharp waves are noted at F7-T7-P7. EEG DIAGNOSIS: This is an abnormal video EEG study because of: 1. Focal slow wave activity seen independently at F7-T7-P7 and F8-T8-P8, more prominent in the former. 2. Occasional sharp waves and sharply contoured slow waves at F7-T7-P7. CLINICAL INTERPRETATION: There was no event reported during the period of monitoring. Continuous EEG recordings showed focal slow-wave activity independently in the temporal electrodes in both hemispheres, more prominent on the left, indicative of focal cerebral dysfunction in the temporal regions, more prominent on the left. Additionally, occasional sharp waves and sharply contoured slow waves were seen in the left temporal electrodes raising the possibility of potential epileptogenicity in the left temporal region. /[id number] MD SINGH Singh/HARMAN / SINGH / MODL /[id number] documented in this encounter Plan of Treatment Not on file documented as of this encounter Visit Diagnoses Not on filedocumented in this encounter
--- OUTSIDE RECORDS SUMMARY | 2025-01-02 08:54 | XMS_ITS | Encounter Summary ---
Author Organization Healthcare Address [address] [place] [address] Care Team Providers Care Pharmaceutical Sales Representative Name Role Phone Aristeo Black MD Primary Care Provider [phone] Balwinder Blood MD Primary Care Provider [phone] Encounter Details Date Type Department Care Team (Late st Contact Info) Description 10/31/2024 Telephone [facility] [address] [place] [address] Laurel Gamble, PA [address] [place] [address] Social History Tobacco Use Types Packs/Day Years Used Date Smoking Tobacco: Every Day Alcohol Use Standard Drinks/Week Comments Yes 0 [...] on file documented as of this encounter Functional Status * Over the [...] -2 Score 0 11/05/2024 3:18 PM EDT Zee Farnsworth * Question Answer Date of Assessment Author Trouble falling or staying asleep, or sleeping too much Nearly every day 11/05/2024 3:18 PM EDT Zee Farnsworth E Feeling tired or having little energy Nearly every day 11/05/2024 3:18 PM EDT Zee Farnsworth E Poor appetite or overeating Not at all 11/05/2024 3: 18 PM EDT Zee Farnsworth E Feeling bad about yourself - or that you are a failure or have let yourself or your family down Not at all 11/05/2024 3:18 PM EDT Zee Farnsworth Trouble concentrating on things, such as reading the newspaper or watching television Not at all 11/05/2024 3:18 PM EDT Zee Farnsworth E Moving or speaking so slowly that other people could have noticed? Or the opposite - being so fidgety or restless that you have been moving around a lot more than usual. Not at all 11/05/2024 3:18 PM EDT Zee Farnsworth Thoughts that you would be better off or hurting yourself in some way Not at all 11/05/2024 3:18 PM EDZee Wong Patient Health Questionnaire-9 Score 6 11/05/2024 3:18 PM EDT Zee Farnsworth * If you checked off any problems on this questionnaire so far, Question Answer Date of Assessment Author How difficult have these problems made it for you to do your work, take care of things at home, or get along with other people? Not difficult at all 11/05/2024 3:18 PM EDZee Wong documented as of this encounter Plan of Treatment Not on file documented as of this encounter Visit Diagnoses Not on filedocumented in this encounter Care Teams Pharmaceutical Sales Representative Relationship Specialty Start Date End Date Aristeo Black MD [address] [facility] [address] [address] PCP - General 12/04/20 11/04/24 Balwinder Blood MD [address] [place] [address] PCP - General 11/05/24 documented as of this encounter
--- OUTSIDE RECORDS SUMMARY | 2025-01-02 08:54 | XMS_ITS | Encounter Summary ---
Author Organization [employer] Address [address] [place] [address] Care Team Providers Care Career Consultant Name Role Phone Unavailable Primary Care Provider Unavailabl e Encounter Details Date Type Department Care Team (Late st Contact Info) Description 02/01/2020 Transcribed Document [facility] [place] [facility] [place] [address] ProviderJason MD [address] [place] [address] [id number] Social History Tobacco Use Types Packs/Day Years Used Date Smoking Tobacco: Never Assessed Comments Unknown Sex and Gender Information Value Date Recorded Sex Assigned at Not on file Legal Sex Female 7:00 PM CDT Gender Identity Not on file Sexual Orientation Not on file documented as of this encounter Miscellaneous Notes * Cerner Conversion Note - Jason ProviderMD - 02/01/2020 10:51 AM CDT DATE OF SERVICE: 01/31/2020 REPORT TYPE: EEG REFERRING PHYSICIAN: Chilango Hendricks MD REPORT TITLE: Video Electroencephalogram Report STUDY DURATION: One day. HISTORY: This is a 29-year-old woman being evaluated for recurrent seizures. EEG VIDEO MONITORING METHODOLOGY: Time-locked EEG-video monitoring was performed using the 32-channel [employer] monitoring system. The seizure detection computer was [...] recording was reviewed. During wakefulness, 10 to 10.5 Hz activity is seen posteriorly. Lower amplitude faster activity in the beta range is noted with wider distribution. 4 to 5 Hz theta waves and less frequent 2 to 3 Hz delta waves are seen at F7-T7-P7 and F8-T8-P8, more commonly in the former. During sleep, well-formed sleep spindles are seen in both hemispheres. SPIKE DETECTION: The spike detection program was activated during the period of monitoring. Occasional sharply contoured slow waves and sharp waves are seen at F7-T7-P7. EEG DIAGNOSIS: This is an abnormal video EEG study because of: 1. Focal slow wave activity seen independently at F7-T7 and F8-T8, more in the former. 2. Occasional sharply contoured slow waves and sharp waves at F7-T7-P7. CLINICAL INTERPRETATION: The patient had no clinical event during the period of monitoring. Continuous EEG recordings showed no electrographic ictal discharge. EEG recordings showed focal slow-wave activity independently in the anterior temporal electrodes in both hemispheres, more commonly on the left, consistent with focal cerebral dysfunction in the anterior temporal regions, more prominent on the left. There were occasional sharply contoured slow waves and sharp waves noted in the left temporal electrodes raising the possibility of potential epileptogenicity in the left temporal region. /[id number] MD SNIGH Singh/HARMAN / TAF / MODL /[id number] documented in this encounter Plan of Treatment Not on file documented as of this encounter Visit Diagnoses Not on filedocumented in this encounter
--- OUTSIDE RECORDS SUMMARY | 2025-01-02 08:54 | XMS_ITS | Encounter Summary ---
Author Organization [employer] Address [address] [place] [address] Care Team Providers Care Car Restorer Name Role Phone Unavailable Primary Care Provider Unavailabl e Encounter Details Date Type Department Care Team (Late st Contact Info) Description 02/01/2020 Transcribed Document [facility] [place] [facility] [place] [facility] [place] [address] ProviderJason MD [address] [place], [place] 160[address] Social History Tobacco Use Types Packs/Day Years Used Date Smoking Tobacco: Never Assessed Comments Unknown Sex and Gender Information Value Date Recorded Sex Assigned at Not on file Legal Sex Female 7:00 PM CDT Gender Identity Not on file Sexual Orientation Not on file documented as of this encounter Miscellaneous Notes * Cerner Conversion Note - Historical ProviderMD - 02/01/2020 5:00 AM CDT Chart Check - Review Order Profile Entered On: 02/01/2020 6:53 EDT Performed On: 02/01/2020 5:00 EDT by Yolanda Santos, RN Chart Check Powerplans Initiated/Discontinued as Appropriate : Yes All Active Orders Reviewed : Yes Yolanda Santos, ALEIDA - 02/01/2020 6:53 EDT documented in this encounter Plan of Treatment Not on file documented as of this encounter Visit Diagnoses Not on filedocumented in this encounter
--- OUTSIDE RECORDS SUMMARY | 2025-01-02 08:54 | XMS_ITS | Encounter Summary ---
Author Organization [employer] Address [address] [place] [address] Care Team Providers Care Dominatrix Name Role Phone Unavailable Primary Care Provider Unavailabl e Encounter Details Date Type Department Care Team (Late st Contact Info) Description 02/01/2020 Transcribed Document [facility] [place] [facility] [address] ProviderJason MD [address] [place], [place] [id number] Social History Tobacco Use Types Packs/Day Years Used Date Smoking Tobacco: Never Assessed Comments Unknown Sex and Gender Information Value Date Recorded Sex Assigned at Not on file Legal Sex Female 7:00 PM CDT Gender Identity Not on file Sexual Orientation Not on file documented as of this encounter Miscellaneous Notes * Cerner Conversion Note - Historical ProviderMD - 02/01/2020 2:00 AM CDT Marine Equipment Test Engineer Details Entered On: 02/01/2020 2:51 EDT Performed On: 02/01/2020 2:00 EDT by Yolanda Santos, RN Order Details Transport Mode Order Detail : Wheelchair Isolation Precautions Order Detail : Standard Precautions Order Detail : 1 IV Order Detail : 0 Oxygen Order Detail : 0 Nurse Collect Order Detail : 0 Lift/Transfer : Independent Central Line Order Detail : No Room Service : Appropriate Arterial Line : No Yolanda Santos, RN - 02/01/2020 2:51 EDT documented in this encounter Plan of Treatment Not on file documented as of this encounter Visit Diagnoses Not on filedocumented in this encounter
--- OUTSIDE RECORDS SUMMARY | 2025-01-02 08:54 | XMS_ITS | Clinical Summary ---
Author Organization [employer] Address [address] [place] [address] Care Team Providers Care Upkeep Mechanic Name Role Phone Unavailable Primary Care Provider Unavailabl e Social History Tobacco Use Types Packs/Day Years Used Date Smoking Tobacco: Never Assessed Comments Unknown Sex and Gender Information Value Date Recorded Sex Assigned at Not on file Legal Sex Female 7:00 PM CDT Gender Identity Not on file Sexual Orientation Not on file Plan of Treatment Not on file
--- OUTSIDE RECORDS SUMMARY | 2025-01-02 08:54 | XMS_ITS | Encounter Summary ---
Author Organization [employer] Address [address] [place] [address] Care Team Providers Care Flame Hardener Name Role Phone Unavailable Primary Care Provider Unavailabl e Encounter Details Date Type Department Care Team (Late st Contact Info) Description 02/01/2020 Transcribed Document [facility] [place] [facility] [address] ProviderJason MD [address] [place], [place] 228[address] Social History Tobacco Use Types Packs/Day Years Used Date Smoking Tobacco: Never Assessed Comments Unknown Sex and Gender Information Value Date Recorded Sex Assigned at Not on file Legal Sex Female 7:00 PM CDT Gender Identity Not on file Sexual Orientation Not on file documented as of this encounter Miscellaneous Notes * Cerner Conversion Note - Historical ProviderMD - 02/01/2020 10:56 AM CDT Stroke/Warfarin Instructions Entered On: 02/01/2020 10:56 EDT Performed On: 02/01/2020 10:56 EDT by Any Wall RN Stroke/Warfarin Instructions Stroke/TIA Discharge Ins : N/A Warfarin Discharge Ins : N/A Any Wall RN - 02/01/2020 10:56 EDT documented in this encounter Plan of Treatment Not on file documented as of this encounter Visit Diagnoses Not on filedocumented in this encounter
--- OUTSIDE RECORDS SUMMARY | 2025-01-02 08:54 | XMS_ITS | Encounter Summary ---
Author Organization [employer] Address [address] [place] [address] Care Team Providers Care Radiology Rn Name Role Phone Unavailable Primary Care Provider Unavailabl e Encounter Details Date Type Department Care Team (Late st Contact Info) Description 02/01/2020 Transcribed Document [facility] [place] [facility] [place] [address] ProviderJason MD [address] [place], [place] [id number] Social History Tobacco Use Types Packs/Day Years Used Date Smoking Tobacco: Never Assessed Comments Unknown Sex and Gender Information Value Date Recorded Sex Assigned at Not on file Legal Sex Female 7:00 PM CDT Gender Identity Not on file Sexual Orientation Not on file documented as of this encounter Miscellaneous Notes * Cerner Conversion Note - Jason ProviderMD - 02/01/2020 10:56 AM CDT Patient Education Materials Follows:[facility] Coping With Non-Epileptic Seizures Epileptic seizures are [...] during a seizure. General instructions ??? Take mmoh-mnu-xrbjrsl and prescription medicines only as told by [...] 03/06/2018 Document Revised: 03/06/2018 Document Reviewed: 03/06/2018 [employer] Interactive Patient Education ? 2019 [employer]. Neurology Epilepsy Epilepsy is when a person keeps [...] of having seen or heard something before (d?j? vu). ??? Odd tastes or smells. ??? [...] these instructions at home: Medicines ??? Take pftz-lng-hvumjcn and prescription medicines only as told by [...] check with your local DMV (department of [employer]) to find out about local driving laws. [...] 05/07/2010 Document Revised: 03/04/2019 Document Reviewed: 03/04/2019 [employer] Interactive Patient Education ? 2019 [employer] documented in this encounter Plan of Treatment Not on file documented as of this encounter Visit Diagnoses Not on filedocumented in this encounter
--- OUTSIDE RECORDS SUMMARY | 2025-01-02 08:54 | XMS_ITS | Encounter Summary ---
Author Organization [employer] Address [address] [place] [address] Care Team Providers Care Fish Farm Manager Name Role Phone Unavailable Primary Care Provider Unavailabl e Encounter Details Date Type Department Care Team (Late st Contact Info) Description 02/01/2020 Transcribed Document [facility] [place] Family Medicine [facility] [place] [address] ProviderJason MD [address] [place] [address] [id number] Social History Tobacco Use Types Packs/Day Years Used Date Smoking Tobacco: Never Assessed Comments Unknown Sex and Gender Information Value Date Recorded Sex Assigned at Not on file Legal Sex Female 7:00 PM CDT Gender Identity Not on file Sexual Orientation Not on file documented as of this encounter Miscellaneous Notes * Cerner Conversion Note - Historical ProviderMD - 02/01/2020 10:56 AM CDT Nursing Discharge Summary Entered On: 02/01/2020 10:57 EDT Performed On: 02/01/2020 10:56 EDT by Any Wall RN Discharge Documentation Discharge Date/Time : 02/01/2020 10:57 EDT Patient Disposition, General : Discharge Discharge To : Home with ambulatory/outpatient follow-up Mode Of Departure, General Discharge : Private vehicle Accompanied By, Discharge : Unaccompanied IV Discontinued : Not applicable Personal Belongings With Patient : Yes Pt's Own Supply of Medications Returned : No Prescriptions Given to Patient : No Medications Given to Patient : No Discharge Instructions Reviewed With, Opportunity For Questions Given : Patient Patient Education Completed : Yes Teaching Method : Explanation Teaching Evaluation : Verbalizes understanding Education Comment : explained ltm Any Wall RN - 02/01/2020 10:56 EDT Electronically signed by [facility] Conversion Gold Leaf Layer Cerner at 11/07/2022 6:37 PM CDT documented in this encounter Plan of Treatment Not on file documented as of this encounter Visit Diagnoses Not on filedocumented in this encounter
--- OUTSIDE RECORDS SUMMARY | 2025-01-02 08:54 | XMS_ITS | Encounter Summary ---
Author Organization [employer] Address [address] [place] [address] Care Team Providers Care Laundry Sorter Name Role Phone Unavailable Primary Care Provider Unavailabl e Encounter Details Date Type Department Care Team (Late st Contact Info) Description 01/30/2020 Transcribed Document [facility] [place] [facility] [address] ProviderJason MD [facility] [place], [place] [address]321 Social History Tobacco Use Types Packs/Day Years Used Date Smoking Tobacco: Never Assessed Comments Unknown Sex and Gender Information Value Date Recorded Sex Assigned at Not on file Legal Sex Female 7:00 PM CDT Gender Identity Not on file Sexual Orientation Not on file documented as of this encounter Miscellaneous Notes * Cerner Conversion Note - Historical ProviderMD - 01/30/2020 9:58 AM CDT Admission History, Adult Entered On: 01/30/2020 10:26 EDT Performed On: 01/30/2020 9:58 EDT by Perla Guevara RN Advance Directive Patient has Advance Directive *Q : No, patient refuses Advance Directive information Perla Guevara RN - 01/30/2020 10:22 EDT Anesthesia/Transfusion History Family History of Anesthesia Reaction : No prior transfusion(s) Transfusion History : Prior anesthesia without reaction Family History of Anesthesia Reaction : None Perla Guevara RN - 01/30/2020 10:22 EDT Functional Assessment Living Situation : Home Current Home Treatments : None Perla Guevara RN - 01/30/2020 10:22 EDT General Info Want Family/Rep/Phys Notified of Admit : No Emergency Contact #1 : Milind Dodd Emergency Contact #1 Emergency Contact #1 Relationship : Emergency Contact #2 : n/a Emergency Contact #2 Phone Number : n/a Emergency Contact #2 Relationship : n/a Primary Language : [place] Communication Barrier : None Third Loader Needed : No Perla Guevara RN - 01/30/2020 10:22 EDT Fall Risk Scales ABCs Fall Injury Risk Identification : None ARBOLEDA Hx Falls Immediate/Within 3 Months : No Arboleda Secondary Diagnosis : No ARBOLEDA Use of Ambulatory Aid : None ARBOLEDA IV Therapy or IV Access : No Arboleda Gait/Transferring : Normal, bedrest, immobile Arboleda Mental Status : Oriented to own ability Arboleda Fall Risk Score : 0 ARBOLEDA Fall Scale Risk Level : 0-24 Low Risk Polaris Fall Interventions : Adequate lighting, Bed in low position, Call device within reach, Fall prevention handout/education per facility policy, Frequent orientation to call device, Frequent orientation to surroundings, Hourly comfort/safety rounds, Non-slip footwear, Personal items within reach, Reinforced to call for assistance before getting out of bed, Room free of clutter/spills, Upper side-rails up, Wheels locked, Wires/Cords secured Perla Guevara RN - 01/30/2020 10:22 EDT Health Histories Smoking Status : Never (less than 100 in lifetime; none in last 30 days) Smokeless Tobacco Status : Never Perla Guevara RN - 01/30/2020 10:22 EDT Social History (As Of: 01/30/2020 10:26:07 EDT) Height and Weight, Clinical Dosing Height Source : Stated Height Entry Format : [place] Height, Feet : 5 ft(Converted to: 152 cm, 60 Inch) Height, Inches : 2 Inch(Converted to: 0 ft 2 Inch, 5.08 cm) Clinical Height : 157.48 cm Weight Source : Standing scale Weight Entry Format : [place] Clinical Dosing Weight : 68.18 kg Weight, Pounds : 150 lb Body Surface Area (BSA) : 1.69 m2 Body Mass Index : 27.5 kg/m2 (HI) Lowman Body Weight : 50 kg Perla Guevara RN - 01/30/2020 10:22 EDT Infectious Disease History Has the patient ever been tested for COVID-19? : Yes, Patient stated results Negative COVID19 Screening : No Experiencing Infectious Disease Symptoms : No symptoms Physical contact outside [place] in the last 30 days : No Infectious Disease Symptoms Score : 0 Infectious Disease History : None Tuberculosis Symptoms : None Perla Guevara RN - 01/30/2020 10:22 EDT Influenza Vaccine Asmt, Adult Previous Vaccines from Immunization Schedule : No qualifying data available. Influenza Immunization, Current Season : Outside of influenza season Perla Guevara RN - 01/30/2020 10:22 EDT Pneumococcal Vaccine Previous Vaccines from Immunization Schedule : No qualifying data available. Pneumonia Immunization Received : No Pneumococcal Risk Assessment < Age 65 : None Perla Guevara RN - 01/30/2020 10:22 EDT Nutrition History Eating Poorly Due to Decreased Appetite : No Unplanned Weight Loss in Past 3-6 Months : No Malnutrition Screening Tool Total(mal) : 0 Malnutrition Screening Tool Risk Level : Patient not at risk Perla Guevara RN - 01/30/2020 10:22 EDT [place]inson Suicide Severity Rating Scale (C-SSRS) CSSRS Past Month Wish to be : No CSSRS Past Month Suicidal Thoughts : No CSSRS Lifetime Suicide Behavior : No Suicide Severity Rating Score : 0 Suicide Severity Rating : No Additional Care Required at this time Perla Guevara RN - 01/30/2020 10:22 EDT Psychosocial History Currently in Unsafe Situation : No Perla Guevara RN - 01/30/2020 10:22 EDT Sleep Apnea Risk Assmt Hx of Obstructive Sleep Apnea Diagnosis : No Snore Loudly : No Tired, Fatigued, or Sleepy During Day : No Observed Stopping Breathing During Sleep : No Have/Are Being Treated for Hypertension : No BMI Greater Than 35 kg/m2 : No Age over 50 Years Old : No Neck Circumference Greater Than 40 cm : No Gender Male : No STOP-BANG Sleep Apnea Risk Level Score : 0 Perla Guevara RN - 01/30/2020 10:22 EDT Valuables and Belongings Valuables and Belongings : Clothing Clothing : Common streetwear Clothing Disposition : Bedside Perla Guevara RN - 01/30/2020 10:22 EDT documented in this encounter Plan of Treatment Not on file documented as of this encounter Visit Diagnoses Not on filedocumented in this encounter
--- OUTSIDE RECORDS SUMMARY | 2025-01-02 08:54 | XMS_ITS | Encounter Summary ---
Author Organization [employer] Address [address] [place] [address] Care Team Providers Care Spoon Maker Name Role Phone Unavailable Primary Care Provider Unavailabl e Encounter Details Date Type Department Care Team (Late st Contact Info) Description 01/31/2020 Transcribed Document [facility] [place] [facility] [place] [address] ProviderJason MD [address] [place], [place] [address] Social History Tobacco Use Types Packs/Day Years Used Date Smoking Tobacco: Never Assessed Comments Unknown Sex and Gender Information Value Date Recorded Sex Assigned at Not on file Legal Sex Female 7:00 PM CDT Gender Identity Not on file Sexual Orientation Not on file documented as of this encounter Miscellaneous Notes * Cerner Conversion Note - Historical ProviderMD - 01/31/2020 2:00 AM CDT Cafeteria Manager Details Entered On: 01/31/2020 4:02 EDT Performed On: 01/31/2020 2:00 EDT by Day Lowry RN-TRAVELER Order Details Transport Mode Order Detail : Wheelchair Isolation Precautions Order Detail : Standard Precautions Order Detail : 1 IV Order Detail : 0 Oxygen Order Detail : 0 Nurse Collect Order Detail : 0 Lift/Transfer : Independent Central Line Order Detail : No Room Service : Appropriate Arterial Line : No Day Lowry RN-TRAVELER - 01/31/2020 4:01 EDT documented in this encounter Plan of Treatment Not on file documented as of this encounter Visit Diagnoses Not on filedocumented in this encounter
--- OUTSIDE RECORDS SUMMARY | 2025-01-02 08:54 | XMS_ITS | Encounter Summary ---
Author Organization [employer] Address [address] [place] [address] Care Team Providers Care Manager Validation Name Role Phone Unavailable Primary Care Provider Unavailabl e Encounter Details Date Type Department Care Team (Late st Contact Info) Description 01/31/2020 Transcribed Document [facility] [place] Family Medicine [facility] [place] [address] ProviderJason MD [facility] [place], [place] [address] Social History Tobacco Use Types Packs/Day Years Used Date Smoking Tobacco: Never Assessed Comments Unknown Sex and Gender Information Value Date Recorded Sex Assigned at Not on file Legal Sex Female 7:00 PM CDT Gender Identity Not on file Sexual Orientation Not on file documented as of this encounter Miscellaneous Notes * Cerner Conversion Note - Jason Willis MD - 01/31/2020 11:31 AM CDT Patient: THANH MELENDEZ Age: 29 years Sex: Female : 1990 Associated Diagnoses: None Author: FARNAZ NAILS MD-LATISHA Subjective No clinical event since admission ROS: No complaint Health Status Allergies: Allergic Reactions (Selected) Severity Not Documented Penicillin- No reactions were documented. Phenergan- No reactions were documented., Allergies (2) Active Reaction penicillin None Documented Phenergan None Documented Current medications: (Selected) Inpatient Medications Ordered Theragran: 1 Tab, Oral, Daily Tylenol: 650 mg, Oral, Q6H, PRN: Headache Documented Medications Documented 1 oral capsule: 1 Cap, Oral, Daily, 30 Cap, 0 Refill(s), Home Medications (1) Active 1 oral capsule 1 Cap, Oral, Daily , Medications (2) Active Scheduled: (1) multiple vitamin (Thera) tab 1 Tab, Oral, Daily Continuous: (0) PRN: (1) acetaminophen 325 mg tab 650 mg 2 Tab, Oral, Q6H Problem list: No qualifying data available Objective VS/Measurements Vital Signs/Vital Measures 01/31/2020 5:39 EDT Systolic Blood Pressure 109 mmHg Diastolic Blood Pressure 52 mmHg LOW Mean Arterial Pressure (MAP)-BMDI 69 Temperature Source Oral Temperature Mode Fahrenheit Temperature, Fahrenheit 98.3 Deg F Clinical Temperature, C 36.8 Deg C Heart Rate Monitored 64 bpm Respiratory Rate 16 Breaths/Min Oxygen Therapy Mode Room air 01/31/2020 0:00 EDT Systolic Blood Pressure 99 mmHg Diastolic Blood Pressure 52 mmHg LOW Mean Arterial Pressure (MAP)-BMDI 70 Temperature Source Oral Temperature Mode Fahrenheit Temperature, Fahrenheit 98.7 Deg F Clinical Temperature, C 37.1 Deg C Heart Rate Monitored 63 bpm Respiratory Rate 16 Breaths/Min Oxygen Therapy Mode Room air 01/30/2020 10:15 EDT Systolic Blood Pressure 122 mmHg Diastolic Blood Pressure 64 mmHg Mean Arterial Pressure (MAP)-BMDI 78 Temperature Source Oral Temperature Mode Fahrenheit Temperature, Fahrenheit 98.5 Deg F Clinical Temperature, C 36.9 Deg C Heart Rate Monitored 64 bpm Respiratory Rate 16 Breaths/Min Oxygen Therapy Mode Room air , Measurements from flowsheet : Measurements 01/30/2020 9:58 EDT Height Source Stated Height Entry Format Summers Height/Length, GERMAN (ft) 5 ft Height/Length GERMAN 2 Inch CLINICALHEIGHT 157.48 cm [place] Body Weight 50 kg Weight Source Standing scale Weight Entry Format Summers Weight Kazakh lb 150 lb CLINICALWEIGHT 68.18 kg Body Surface Area (BSA) 1.69 m2 Body Mass Index 27.5 kg/m2 HI , Vitals Signs (last 24 hrs) Last Charted Minimum Maximum Temp 98.3 (JAN 30 05:39) 98.3 (JAN 30 05:39) 98.7 (JAN 30 00:00) Mon HR 64 (JAN 30 05:39) 63 (JAN 30 00:00) 64 (JAN 30 05:39) Resp Rate 16 (ISABELLE 10 05:39) 16 (JAN 30:00) 16 (JAN 30:00) SBP 109 (JAN 30:39) 99 (JAN 30:00) 109 (JAN 30:39) DBP L 52 (JAN 30:39) L 52 (JAN 30:00) L 52 (JAN 30:00) MAP 69 (JAN 30:) 69 (JAN 30:39) 70 (JAN 30:) General: Alert and oriented. Eye: Pupils are equal, round and reactive to light. Neurologic: Normal motor function, No focal deficits, Cranial Nerves II-XII are grossly intact. Psychiatric: Appropriate mood & affect. 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 Continue video-EEG monitoring 2. Encouraged increase in level of activity documented in this encounter Plan of Treatment Not on file documented as of this encounter Visit Diagnoses Not on filedocumented in this encounter
--- OUTSIDE RECORDS SUMMARY | 2025-01-02 08:54 | XMS_ITS | Referral Summary ---
Author Organization [employer] Address [address] [place] [address] Care Team Providers Care Vise Hand Name Role Phone Unavailable Primary Care Provider [...]
--- OUTSIDE RECORDS SUMMARY | 2025-01-02 08:55 | XMS_ITS | Encounter Summary ---
Author Organization Healthcare Address [address] [place] [address] Care Team Providers Care Cardiopulmonary Supervisor Name Role Phone Aristeo Black MD Primary Care Provider [phone] Balwinder Blood MD Primary Care Provider [phone]- [phone] Reason for Referral * Consultation (Routine) - Closed Specialty Diagnoses / Procedures Referred By Patricio dutton Referred To Contact Neurology Diagnoses Intractable chronic migraine without aura and without status migrainosus Angeles Johnson MD [address] [facility] [address] [place] [address] Phone: tel: fax: Adam Ontiveros MD [address] [facility] [address] [place] [address] Phone: tel: fax: Referral ID Status Reason Start Date Expiration Date V isits Requested Visits Authorized [id number] Closed Specialty Services Required 04/02/2024 10/02/2025 1 1 Encounter Details Date Type Department Care Team (Late st Contact Info) Description 04/02/2024 [facility] [address] [place] [address] Angeles Johnson MD [address] [facility] [address] [place] [address] Intractable chronic migraine without aura and without status migrainosus (Primary Dx) Social History Tobacco Use Types Packs/Day Years Used Date Smoking Tobacco: Every Day Alcohol Use Standard Drinks/Week Comments Yes 0 (1 standard drink = 0.6 oz pur e alcohol) Comments Unknown Sex and Gender Information Value Date Recorded Sex Assigned at Not on file Legal Sex Female 8:53 PM EDT Gender Identity Not on file Sexual Orientation Not on file documented as of this encounter Plan of Treatment Scheduled Referrals Name Type Priority Associated Diagnoses Orde r Schedule Ambulatory referral to Neurology Outpatient Referral Routine Intractable chronic migraine without aura and without status migrainosus Expected: 04/02/2024 (Approximate), Expires: 09/30/2025 documented as of this encounter Visit Diagnoses Diagnosis Intractable chronic migraine without aura and without status migrainosus- Primary documented in this encounter Care Teams Cardiopulmonary Supervisor Relationship Specialty Start Date End Date Aristeo Black MD [address] [address] PCP - General 12/04/20 11/04/24 Balwinder Blood MD [address] [place] [address] PCP - General 11/05/24 documented as of this encounter
--- OUTSIDE RECORDS SUMMARY | 2025-01-02 08:55 | XMS_ITS | Encounter Summary ---
Author Organization [employer] Address [address] [place] [address] Care Team Providers Care Director Of Teacher Education Name Role Phone Unavailable Primary Care Provider Unavailabl e Encounter Details Date Type Department Care Team (Late st Contact Info) Description 01/30/2020 Transcribed Document [facility] [place] Family Medicine [facility] [place] [address] ProviderJason MD [address] [place], [place] [id number] Social History Tobacco Use Types Packs/Day Years Used Date Smoking Tobacco: Never Assessed Comments Unknown Sex and Gender Information Value Date Recorded Sex Assigned at Not on file Legal Sex Female 7:00 PM CDT Gender Identity Not on file Sexual Orientation Not on file documented as of this encounter Miscellaneous Notes * Cerner Conversion Note - Historical ProviderMD - 01/30/2020 3:31 PM CDT Neurodiagnostics Event Note Entered On: 01/30/2020 15:31 EDT Performed On: 01/30/2020 15:31 EDT by DEB HEBERT Neurodiagnostic Tech Neurodiagnostics Event Note Neurodiagnostic Event Date/Time : 01/30/2020 15:31 EDT Neurodiagnostic Event Location : Neurodiagnostic department Neurodiagnostic Event Details : Procedure completed DEB HEBERT Neuroyulianaostic Tech - 01/30/2020 15:31 EDT documented in this encounter Plan of Treatment Not on file documented as of this encounter Visit Diagnoses Not on filedocumented in this encounter
--- OUTSIDE RECORDS SUMMARY | 2025-01-02 08:55 | XMS_ITS | Encounter Summary ---
Author Organization Healthcare Address [address] [place] [address] Care Team Providers Care Naval Aircrewman Avionics Name Role Phone Balwinder Blood MD Primary Care Provider [phone]- [phone] Encounter Details Date Type Department Care Team (Late st Contact Info) Description 12/31/[facility] [address] [place] [address] Laurel Gamble, [place] [address] [place] [address] Social History Tobacco Use Types Packs/Day Years Used Date Smoking Tobacco: Never Smokeless Tobacco: Never Alcohol Use Standard Drinks/Week Comments Yes 0 [...] Diagnoses Not on filedocumented in this encounter Additional Health Concerns Assessment Noted Time PHQ-9 Depression Total Score: 6 11/06/19 25 3:18 PM EDT A fall risk assessment has been complete d for the patient 11/05/2024 3:18 PM EDT A Body Mass Index follow-up plan has been documented for the patient 11/06/2024 1:06 PM EDT documented as of this encounter Care Teams [employer] Relationship Specialty Start Date End Date Balwinder Blood MD [address] [place] [address] PCP - General 11/05/24 documented as of this encounter
--- OUTSIDE RECORDS SUMMARY | 2025-01-02 08:55 | XMS_ITS | Encounter Summary ---
Author Organization Healthcare Address [address] [place] [address] Care Team Providers Care Procedures Analyst Name Role Phone Balwinder Blood MD Primary Care Provider [phone]- [phone] Encounter Details Date Type Department Care Team (Latest Contact Info) Description 11/05/2024 Travel Social History Tobacco Use Types Packs/Day Years [...] Not at all 11/05/2024 3:18 PM EDT Farnsworth, Zee E Feeling down, depressed, or hopeless Not at all 11/05/2024 3:18 PM EDT Farnsworth, Zee E Patient Health Questionnaire -2 Score 0 11/05/2024 3:18 PM EDT Farnsworth, Zee E * Question Answer Date of Assessment Author Trouble falling or staying asleep, or sleeping too much Nearly every day 11/05/2024 3:18 PM EDT Farnsworth, Zee E Feeling tired or having little energy Nearly every day 11/05/2024 3:18 PM EDT Farnsworth, Zee E Poor appetite or overeating Not at all 11/05/2024 3: 18 PM EDT Zee Farnsworth Feeling bad about yourself - or that you are a failure or have let yourself or your family down Not at all 11/05/2024 3:18 PM EDT Zee Farnsworth Trouble concentrating on things, such as reading the newspaper or watching television Not at all 11/05/2024 3:18 PM EDT Zee Farnsworth Moving or speaking so slowly that other [...] Not difficult at all 11/05/2024 3:18 PM EDT Zee Farnsworth documented as of this encounter Plan of [...] documented as of this encounter Care Teams Procedures Analyst Relationship Specialty Start Date End Date Balwinder Blood MD [address] [place] [address] PCP - General 11/05/24 documented as of this encounter
--- OUTSIDE RECORDS SUMMARY | 2025-01-02 08:55 | XMS_ITS | Clinical Summary ---
Author Organization [facility] Address [address] [place] [address] Care Team Providers Care Machine Feed Operator Name Role Phone Balwinder Blood MD Primary Care Provider [phone]- [phone] Allergies Active Allergy Reactions Criticality Noted Date Comments Amoxicillin Hives,Rash Medium 11/05/2024 Penicillins Hives,Unknown - Daylin ent states they do not know rxn details Medium 10/17/2014 Promethazine Rash,Unknown - Patie nt states they do not know rxn details Low 10/18/2013 Medications armodafinil (Nuvigil) 200 MG tablet TAKE ONE TABLET BY MOUTH EVERY DAY FOR HYPERSOMNIA, MAX DAILY DOSE OF 200MG 5 Active tiZANidine (Zanaflex) 4 MG tablet TAKE 1 OR 2 TABLET(S) BY MOUTH AT BEDTIME NEEDED FOR NECK PAIN, HEADACHE, AVOID DAYTIME DOSING WITH DROWSINESS 5 Active valACYclovir (Valtrex) 1 g tablet as needed. 4 Active Ubrelvy 100 MG tabletIndication s:Intractable chronic migraine without aura and without status migrainosus Take 1 tablet by mouth 1 (one) time as needed for migraine for up to 1 dose. After 2 hours, a second dose may be taken if needed. Maximum dose: 200 mg in 24-hour period. 10 each 3 5 Active Encounters Date Type Department Care Team Description 12/31/2024 Telephone [facility] [address], [address] [place] [address] Laurel Gamble PA 11/05/2024 3:30 PM EDT Consult [facility] [address], [address] [place] [address] Laurel Gamble PA Intractable chronic migraine without aura and without status migrainosus 11/05/2024 Travel 10/31/2024 Telephone [facility] [address], [address] [place] [address] Laurel Gamble PA from Last 3 Months Family History Medical History Relation Name Comments Epilepsy Brother Seizures Brother Brain Tumor Father Multiple sclerosis Father's Sister Hypertension Maternal Grandfather Diabetes type II Mother Neuropathy Mother Relation Name Status Comments Brother Father Father's Sister Maternal Grandfather Mother Social History Tobacco Use Types Packs/Day Years [...] on file Sexual Orientation Not on file Last Filed Vital Signs Vital Sign Reading [...] Mass Index 26.83 11/05/2024 3:20 PM EDT Plan of Treatment Health Maintenance Due Date Last Done Comments [facility]-Depression Screening 1992 [facility]-/Child/Adol SDOH Screenings 1992 [facility]-Varicella Vaccines (1 of 2 - 13+ 2-dose series) 2005 HPV Vaccines (1 - 3-dose series) 09/30/2007 [facility]- SDOH Screenings 2010 [facility]-Adult SDOH Screenings 2010 [facility]-DTaP,Tdap,and Td Vaccines (1 - Tdap) 09/30/2011 [facility]-Hepatitis B Vaccines (1 of 3 - 19+ 3-dose series) 09/30/2011 [facility]-Pap Smear 2013 [facility]-Cervical Cancer Screening 2022 [facility]-HPV/Cotest 2022 [id number] Vaccine (3 - 2023- season) 2024 08/06/2021, 06/15/2021 [facility]-Influenza Vaccine (Season Ended) 2025 [facility]-Zoster Vaccines (1 of 2) 2042 [facility]-HIB Vaccines Aged Out No longer e ligible based on patient's age to complete this topic [facility]-Hepatitis A Vaccines Aged Out No longer eligible based on patient's age to complete this topic [facility]-IPV Vaccines Aged Out No longer e ligible based on patient's age to complete this topic [facility]-Pneumococcal Vaccine: Pediatrics (0 to 5 Years) and At-Risk Patients (6 to 49 Years) Aged Out No longer eligible b ased on patient's age to complete this topic [facility]-Rotavirus Vaccines Aged Out No lo nger eligible based on patient's age to complete this topic Insurance Care Teams Machine Feed Operator Relationship Specialty Start Date End Date Balwinder Blood MD [address] [place] [address] PCP - General 11/05/24
[2025-01-02 10:25] VITALS: BP 116/68; PULSE 70; RESP 18; O2SAT 100; BMI 24.7
--- NOTE | 2025-01-02 10:28 | A.OFFVIS_ITS ---
HPI Data of Consult Patient: new to practice Consult date: 01/02/25 Requesting Physician: Dayanara Mccrary APRN Primary Care Provider: Balwinder Blood MD Reason for consult: Headaches, neck pain, bilateral arm numbness tingling History of present illness: Ms. Ashley is a 34 year old female who presents today as a new patient. She is a referral from Dr. Johnson. Today she rates her pain at 1 out of 10 however does state that it will go much higher to a 5 or more with increased activity. Patient states that she has had headaches since she was a teenager and that they have progressively worsened over time. Patient does state that she feels like she has a daily headache and about 8-9 migraines per month. Patient has tried multiple medications including Qulipta, Emgality, Aimovig, Ajovy and is currently on tizanidine 8 mg at bedtime and Ubrelvy 100 mg as needed. Patient does state that she does have neck pain with tension in her muscles and what used to be a burning sensation into her arms is now with tingling numbness that radiates down to her fingertips. Patient does state that it does interfere with her ability perform activities of daily living such as cooking and cleaning. Patient states that she has not had any surgery or injection history. Patient has tried oral steroids along with Tylenol and ibuprofen, heat and ice and topicals. Patient did try a friend's compounded cream from our office and stated that that made no improvement. Patient has completed physical therapy and dry needling with no changes. Patient is interested in any options we may be able to provide. Her Jad has been reviewed and is appropriate. Pain at rest (0-10 scale): 5 Has patient had previous pain injection?: No Conservative treatment options previously tried: NSAIDS (Longer than 12-week), Home exercise plan (Longer than 12 weeks), Physical Therapy (Longer than 6 weeks), Prescription medications (Longer than 12 weeks) and Other (Please Describe) (Dry needling) cc:: CC: Dayanara Mccrary APRN [facility] Disclaimer: The information contained in this section may have been updated after the patient was seen, as this information can be updated by other users. Medical History Vitamin D deficiency Paresthesias Sudden onset of facial numbness involving perioral region, tip of fingers up to the elbows and more recently both legs from hips down. There is no evidence of upper or lower motor neuron lesions or clear dermatome distribution and it is very difficult to localize a PLAYGROUND ATTENDANT lesion that can explain current signs and symptoms. If an organic etiology can be excluded then consider functional etiology. Narcolepsy Surgical History H/O bilateral salpingectomy Hx of wisdom tooth extraction History of tonsillectomy and adenoidectomy History of carpal tunnel release Hx of dilation and curettage Family History Other Cancer Coronary artery disease Family history of diabetes mellitus type II Family history of myocardial infarction Stroke Social History (Updated 01/02/25 @ 10:28 by Janet Robles RN) Smoking Status: Former smoker tobacco type: cigarettes packs per day: 1 second hand exposure: No alcohol intake: current alcohol intake frequency: holidays/special occasions only substance use type: denies use current occupational status: employed Travel in the last 8 weeks?: None household members: family housing: house 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 current occupational exposures/hazards: No caffeine: Yes Contact w/someone who lives/traveled outside US past 30 days?: No Exposure to someone with infectious disease in past 14 days?: No Do you have a fever (greater than 100.4 F or 38 C)?: No Have you tested positive for COVID-19?: No Exposed to someone with COVID-19 in past 14 days?: No Do you have a sore throat?: No Do you have a cough?: No Do you have any weakness?: No Are you experiencing any nausea/vomitting?: No Do you have any diarrhea?: No Are you experiencing any unusual bleeding?: No Do you have any muscle aches/pain?: No Do you have any abdominal pain?: No Are you experiencing loss of taste or smell?: No Review of Systems Review of Systems Review of systems:: pertinent systems reviewed and negative unless documented below Review of systems (narrative): Review of Systems: General: No recent weight changes, no fever, no sleep disturbances Respiratory: No cough, no shortness of air, no recurring pulmonary infections Cardiovascular/peripheral vascular: No chest pain, no palpitations, no edema, no shortness of breath Gastrointestinal: No new onset incontinence, normal bowel movements reported Genitourinary: No new onset incontinence Musculoskeletal: Headaches, migraines, neck pain, bilateral arm numbness tingling Psychiatric: [Normal mood/affect] Neurological: [Denies weakness in extremities], [denies balance issues] Meds Home Medications and Allergies Home Medications ?Medication ?Instructions ?Recorded ?Confirmed ?Type valacyclovir 1 gram tablet 1,000 mg PO DAILY PRN cold sores 06/17/24 10/29/24 Rx (Valtrex) #30 tabs armodafinil 200 mg tablet 200 mg PO DAILY Hypersomnia #30 10/29/24 10/29/24 Rx tabs tizanidine 4 mg tablet 4 - 8 mg (1 - 2 x 4 mg) PO H S PRN 10/29/24 10/29/24 Rx neck pain, headache #60 tabs ubrogepant 100 mg tablet (Ubrelvy) 100 mg PO ONCE PRN headache #16 10/29/24 10/29/24 Rx tabs levofloxacin 500 mg tablet 500 mg PO DAILY #7 tabs Rx New Prescriptions to Start Prescriptions: Allergies Allergy/AdvReac Type Severity Reaction Status Date / Time penicillin G (PENICILLIN G) Allergy Intermediate I-HIVES Verified 10/29/24 15:43 promethazine (From PHENERGAN) Allergy Unknown NA-NAUSEA/V Verified 10/29/24 15:43 OMITING amoxicillin Allergy Verified 10/29/24 15:43 Objective Narrative: Physical Exam: General: Alert and oriented x3, no acute distress, pleasant and cooperative Lungs: Respirations even and unlabored, symmetrical chest expansion Eyes: PERRL Musculoskeletal: Flexion and extension of cervical [spine] somewhat guarded secondary to pain, [antalgic gait noted] positive Spurling's test Neurological: Speech clear, no gross sensory deficit Assessment and Plan *Assessment and plan (1) Cervicogenic headache: Problem Comment: Continue tizanidine Status: Chronic Category: Medical Code(s): G44.86 - Cervicogenic headache (2) Intractable migraine: Problem Comment: Unresponsive to multiple medications Status: Chronic Qualifiers: Migraine type: chronic migraine (15 or more days per month) without aura Status migrainosus presence: without status migrainosus Qualified Code(s): G43.719 - Chronic migraine without aura, intractable, without status migrainosus Category: Medical Code(s): G43.919 - Migraine, unspecified, intractable, without status migrainosus (3) Numbness and tingling of both upper extremities: Status: Acute Category: Medical Code(s): R20.0 - Anesthesia of skin; R20.2 - Paresthesia of skin (4) Cervical radiculopathy: Status: Acute Category: Medical Code(s): M54.12 - Radiculopathy, cervical region (5) Degenerative disc disease, cervical: Status: Acute Category: Medical Code(s): M50.30 - Other cervical disc degeneration, unspecified cervical region Plan Patient is experiencing worsening pain in their neck with radiating tingling and burning sensations into their bilateral upper extremities. Patient did have limited range of motion of her cervical spine with a positive Spurling's test. I did discuss with the patient that I do believe they would benefit from a cervical epidural steroid injection. Risk and benefits were discussed with patient and they would like to proceed forward with this plan of care. Patient has tried and failed conservative therapy including oral medications, heat and ice, topicals, physical therapy and continued at home stretching and exercise for longer than 12 weeks that was physician guided. Patient has not had any epidurals in the past. We did also discuss Botox for her headaches and migraines as well as the possibility of occipital nerve blocks as it does radiate frequently from the base of her skull. We will follow-up with these in future. We did discuss at length between the different type of injections and due to her multiple symptoms including the radicular numbness and tingling and positive Spurling test patient did wish to proceed forward with the epidural. Patient will be scheduled for a CRISTHIAN C6-C7 under fluoroscopy. Patient denies any blood thinners. Patient has been instructed to contact the clinic with any concerns before the next appointment. Dr. Sosa has reviewed this note and agrees with this plan of care. This note was dictated using voice recognition software and make contain errors or omissions. All injections are used with Lidocaine, Bupivacaine and dexamethasone unless otherwise stated as a diagnostic in which it has no steroid. Occasionally urine drug screen is needed to verify patient's compliance with our office pain contract. This is ordered based off specific treatments related to chronic pain with the potential to abuse certain medications.
== END 2025-01-02 23:59 | disposition home or self-care (01) ==
PROVIDERS: PCP Family Medicine; Visit Provider Nurse Practitioner Family
DX: G44.86 Cervicogenic headache (principal); G43.719 Chronic migraine without aura, intractable, without status migrainosus; M50.123 Cervical disc disorder at C6-C7 level with radiculopathy
CPT/HCPCS: 99202; G0463

== ENCOUNTER 2025-01-28 10:54 | Day surgery (SDC) | payer OTHER, SELFPAY ==
[2025-01-28 11:02] VITALS: BP 123/76; PULSE 67; RESP 18; O2SAT 97
[2025-01-28 11:06] VITALS: BP 105/71; PULSE 61; RESP 18; O2SAT 97; BMI 24.5
[2025-01-28] MEDS: DEXAMETHASONE 10MG/ML 1ML VIAL 10 MG (11:09)
[2025-01-28] MEDS: IOPAMIDOL-200 (41%);10ML VIAL 5 ML IV (11:20)
[2025-01-28 11:22] VITALS: BP 118/79; PULSE 86; RESP 18; O2SAT 100
--- NOTE | 2025-01-28 11:23 | P.PCN_ITS ---
Procedure Date: 01/28/25 Time: 11:10 Anesthesiologist:: Milind Velasquez CRNA Complications:: None Pre-procedure Diagnosis:: Degenerative disc cervical spine multilevels. Cervical radiculopathy. Post-procedure Diagnosis:: Same Indications for Procedure:: Patient is a very pleasant 34-year-old female who comes our clinic today for cervical epidural steroid injection. Patient describes cervical neck pain as well as bilateral arm radicular symptoms as constant, dull, aching, intermittent. She rates her pain 6/10. 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 She has a very labor-intensive job requiring a lot of lifting. Procedure Details:: Procedure:Cervical epidural steroid injection Informed consent was obtained and the risks and benefits of the procedure were explained to the patient. The patient was taken to the procedure room and noninvasive monitors placed, including noninvasive blood pressure cuff and pulse oximeter. The neck was prepped using Chloraprep as a cleansing solution. The C6- C7 interspace was viewed using fluroscopy. The skin and subcutaneous tissues were anesthetized using lidocaine 1.5% and a 25-gauge needle. After this an 18- gauge Touhy epidural needle was placed into the C6-C7 interspace under fluroscopy guidance and advanced using loss of resistance to air until the epidural space was encountered. After confirmation of needle placement in the epidural space using contrast dye, dexamethasone 10 mg ( 1 ML) was incrementally injected into the cervical epidural space.~ The patient tolerated the procedure well with no complications. The patient was observed in the Pain Clinic and then discharged home neurologically intact. Plan and Disposition:: Patient was discharged without incident.
== END 2025-01-28 11:22 | disposition home or self-care (01) ==
PROVIDERS: PCP Family Medicine; Visit Provider Nurse Anesthetist, Certified Registered
DX: M54.12 Radiculopathy, cervical region (principal); M50.30 Other cervical disc degeneration, unspecified cervical region; G43.719 Chronic migraine without aura, intractable, without status migrainosus; G44.86 Cervicogenic headache; Z87.891 Personal history of nicotine dependence; Z79.899 Other long term (current) drug therapy; Z88.0 Allergy status to penicillin; Z88.8 Allergy status to other drugs, medicaments and biological substances; Z88.1 Allergy status to other antibiotic agents
CPT/HCPCS: 62321; J1100; Q9966

== ENCOUNTER 2025-01-29 08:50 | Outpatient (CLI) | payer OTHER, SELFPAY ==
--- OUTSIDE RECORDS SUMMARY | 2025-01-29 08:52 | XMS_ITS | Encounter Summary ---
Author Organization [employer] ([place], [place], [place], [place]) Address [address] [place] [address] Care Team Providers Care Business Transformation Analyst Name Role Phone Unavailable Primary Care Provider Unavailabl e Encounter Details Date Type Department Care Team (Late st Contact Info) Description 01/30/2020 Transcribed Document [facility] [place] [address] ProviderJason MD [address] [place], [place] [address] Social History Tobacco Use Types Packs/Day Years Used Date Smoking Tobacco: Never Assessed Comments Unknown Sex and Gender Information Value Date Recorded Sex Assigned at Not on file Legal Sex Female 7:00 PM CDT Gender Identity Not on file Sexual Orientation Not on file documented as of this encounter Miscellaneous Notes * Cerner Conversion Note - Jason Willis MD - 01/30/2020 2:47 PM CDT Initial Discharge Planning Entered On: 01/30/2020 14:48 EDT Performed On: 01/30/2020 14:47 EDT by PHILIP CAMARILLO RN-[employer] Initial Assessment I Previously Documented Living Environment : No qualifying data available. Living Situation : Home Patient Lives With : Spouse Is the Patient a Caregiver at Home? : No Emergency Contact #1 : Milind Dodd Emergency Contact #1 Emergency Contact #1 Relationship : Does Patient have PCP Listed? : Yes Legal Guardian : No Is Guardianship Needed : No PHILIP CAMARILLO RN-[employer] [facility] - 01/30/2020 14:47 EDT Initial Assessment II Sensory and Motor Deficits : None Current Home Treatments and Equipment : None Does the Patient have a Floor to SNF Benefit? : No PHILIP CAMARILLO RN-[employer] [employer] [facility] - 01/30/2020 14:47 EDT Discharge Needs I Anticipated Discharge Date : 02/02/2020 EDT Anticipated Discharge To, CM : Home with family care Current Home Treatment/Equipment : Current Home Treatment/Equipment No qualifying data available. Post Acute/Home Treatments : None Documentation Status Complete : Yes PHILIP CAMARILLO RN-[employer] - 01/30/2020 14:47 EDT Discharge Needs II Professional Skilled Services : Professional Skilled Services No qualifying data available. Needs Assistance with Transportation : No PHILIP CAMARILLO RN-[employer] - 01/30/2020 14:47 EDT Narrative Note Narrative Note : No discharge needs noted. PHILIP CAMARILLO RN-[employer] [employer] - 01/30/2020 14:47 EDT Electronically signed by Asif Hobbs Conversion Assistant Clinical Nurse Manager Cerner at 11/07/2022 6:38 PM CDT documented in this encounter Plan of Treatment Not on file documented as of this encounter Visit Diagnoses Not on filedocumented in this encounter
--- OUTSIDE RECORDS SUMMARY | 2025-01-29 08:52 | XMS_ITS | Encounter Summary ---
Author Organization [employer] ([place], [place], [place], [place]) Address [address] [place] [address] Care Team Providers Care Allergist/Immunologist Name Role Phone Unavailable Primary Care Provider Unavailabl e Encounter Details Date Type Department Care Team (Late st Contact Info) Description 01/31/2020 Transcribed Document [facility] [place] [address] ProviderJason MD [address] [place], [place] [address] Social History Tobacco Use Types Packs/Day Years Used Date Smoking Tobacco: Never Assessed Comments Unknown Sex and Gender Information Value Date Recorded Sex Assigned at Not on file Legal Sex Female 7:00 PM CDT Gender Identity Not on file Sexual Orientation Not on file documented as of this encounter Miscellaneous Notes * Cerner Conversion Note - Jason Willis MD - 01/31/2020 10:34 AM CDT DATE OF SERVICE: 01/30/2020 REPORT TYPE: EEG REFERRING PHYSICIAN: Chilango Hendricks MD REPORT TITLE: Video Electroencephalogram Report STUDY DURATION: One day. HISTORY: This is a 29-year-old woman being evaluated for recurrent seizures. EEG VIDEO MONITORING METHODOLOGY: Time-locked EEG-video monitoring was performed using the 32-channel [employer] monitoring system. The seizure detection computer was [...] seen independently in both hemispheres at F7-T7-P7, Vj3-M1-X4-T8, P8-O2 and less frequently at P7-O1. CLINICAL [...] of multifocal potential epileptogenicity in both hemispheres. /[id number] MD SINGH Singh/AQ / TAF / MODL /[id number] documented in this encounter Plan of Treatment Not on file documented as of this encounter Visit Diagnoses Not on filedocumented in this encounter
--- OUTSIDE RECORDS SUMMARY | 2025-01-29 08:52 | XMS_ITS | Encounter Summary ---
Author Organization Healthcare Address [address] [place] [address] Care Team Providers Care Internet E Commerce Specialist Name Role Phone Aristeo Black MD Primary Care Provider [phone] Balwinder Blood MD Primary Care Provider [phone] Encounter Details Date Type Department Care Team (Late st Contact Info) Description 10/31/2024 Telephone [place] [facility] [address], [address] [place] [address] Laurel Gamble, PA [address] [place] [address] Social History Tobacco Use Types [...] on filedocumented in this encounter Care Teams Internet E Commerce Specialist Relationship Specialty Start Date End Date Aristeo Black MD [address] [facility] [address] [address] PCP - General 12/04/20 11/04/24 Balwinder Blood MD [address] [place] [address] PCP - General 11/05/24 documented as of this encounter
--- OUTSIDE RECORDS SUMMARY | 2025-01-29 08:52 | XMS_ITS | Encounter Summary ---
Author Organization [employer] ([place], [place], [place], [place]) Address [address] [place] [address] Care Team Providers Care Orthodontic Treatment Coordinator Name Role Phone Unavailable Primary Care Provider Unavailabl e Encounter Details Date Type Department Care Team (Late st Contact Info) Description 02/01/2020 Transcribed Document [facility] [place] [facility] [place] [address] ProviderJason MD [facility] [place], [place] [address] Social History Tobacco Use Types Packs/Day Years Used Date Smoking Tobacco: Never Assessed Comments Unknown Sex and Gender Information Value Date Recorded Sex Assigned at Not on file Legal Sex Female 7:00 PM CDT Gender Identity Not on file Sexual Orientation Not on file documented as of this encounter Miscellaneous Notes * Cerner Conversion Note - Jason Willis MD - 02/01/2020 10:55 AM CDT DATE OF SERVICE: 02/01/2020 REPORT TYPE: EEG REFERRING PHYSICIAN: Chilango Hendricks MD REPORT TITLE: Video Electroencephalogram Report STUDY DURATION: Four hours. HISTORY: This is a 29-year-old woman being evaluated for recurrent seizures. EEG VIDEO MONITORING METHODOLOGY: Time-locked EEG-video monitoring was performed using the 32-channel [employer] monitoring system. The seizure detection computer was [...] potential epileptogenicity in the left temporal region. /[id number] MD SINGH Singh/HARMAN / TAF / MODL /[id number] documented in this encounter Plan of Treatment Not on file documented as of this encounter Visit Diagnoses Not on filedocumented in this encounter
--- OUTSIDE RECORDS SUMMARY | 2025-01-29 08:52 | XMS_ITS | Clinical Summary ---
Author Organization [facility] Address [address] [place] [address] Care Team Providers Care Supervisor Pole Yard Name Role Phone Balwinder Blood MD Primary Care Provider [phone] Allergies Active Allergy Reactions Criticality Noted Date [...] Type Department Care Team Description 12/31/2024 Telephone [facility] [address], [address] [place] [address] Laurel Gamble PA 11/05/2024 3:30 PM EDT Consult [facility] [address], [address] [place] [address] Laurel Gamble PA Intractable chronic migraine without aura and without status migrainosus 11/05/2024 Travel 10/31/2024 Telephone [facility] [address], [address] [place] [address] Laurel Gamble PA from Last [...] Date Last Done Comments [facility]-Depression Screening 1992 [facility]-Infant/Child/Adol SDOH Screenings 1992 [facility]-Varicella Vaccines (1 of 2 - 13+ 2-dose series) 2005 HPV Vaccines (1 - 3-dose series) 09/30/2007 [facility]- SDOH Screenings 2010 [facility]-Adult SDOH Screenings 2010 [facility]-DTaP,Tdap,and Td Vaccines (1 - Tdap) 09/30/2011 [facility]-Hepatitis B Vaccines (1 of 3 - 19+ 3-dose series) 09/30/2011 [facility]-Pap Smear 2013 [facility]-Cervical Cancer Screening 2022 [facility]-HPV/Cotest 2022 [id number] Vaccine (3 - 2023- season) 2024 08/06/2021, 06/15/2021 [facility]-Influenza Vaccine (#1) 2025 [facility]-Zoster Vaccines (1 of 2) 2042 [...] to complete this topic Insurance Care Teams Supervisor Pole Yard Relationship Specialty Start Date End Date Balwinder Blood MD [address] [place] [address] PCP - General 11/05/24
--- OUTSIDE RECORDS SUMMARY | 2025-01-29 08:52 | XMS_ITS | Encounter Summary ---
Author Organization [employer] ([place], [place], [place], [place]) Address [address] [place] [address] Care Team Providers Care Recruitment Director Name Role Phone Unavailable Primary Care Provider Unavailabl e Encounter Details Date Type Department Care Team (Late st Contact Info) Description 01/31/2020 Transcribed Document [facility] [place] [facility] [place] [address] ProviderJason MD [address] [place], [place] [address] Social History Tobacco Use Types Packs/Day Years Used Date Smoking Tobacco: Never Assessed Comments Unknown Sex and Gender Information Value Date Recorded Sex Assigned at Not on file Legal Sex Female 7:00 PM CDT Gender Identity Not on file Sexual Orientation Not on file documented as of this encounter Miscellaneous Notes * Cerner Conversion Note - Jason Willis MD - 01/31/2020 4:31 PM CDT On Going Discharge Planning Entered On: 01/31/2020 16:31 EDT Performed On: 01/31/2020 16:31 EDT by PHILIP CAMARILLO RN-Consumer Relations SpecialistDeputy Sheriff Lieutenant Progress Note Discharge Arrangements : Patient Post-Acute [...] Attend Multidisciplinary Rounds? : No PHILIP CAMARILLO, RN-Consumer Relations Specialist - 01/31/2020 16:31 EDT Narrative Progress Note Narrative Progress Note : Continues on EEG monitoring. Historical Progress Note : On continuous EEG monitoring. PHILIP CAMARILLO RN-Consumer Relations Specialist - 01/30/20 14:48:58 PHILIP CAMARILLO RN-Consumer Relations Specialist - 01/31/2020 16:31 EDT documented in this encounter Plan of Treatment Not on file documented as of this encounter Visit Diagnoses Not on filedocumented in this encounter
--- OUTSIDE RECORDS SUMMARY | 2025-01-29 08:52 | XMS_ITS | Encounter Summary ---
Author Organization [employer] ([place], [place]) Address [address] [place] [address] Care Team Providers Care Loft Worker Name Role Phone Unavailable Primary Care Provider Unavailabl e Encounter Details Date Type Department Care Team (Late st Contact Info) Description 02/01/[address] [facility] [place] Family Medicine [address] [place] [address] ProviderJason MD [address] [place], [place] [address] Social History Tobacco Use Types Packs/Day Years Used Date Smoking Tobacco: Never Assessed Comments Unknown Sex and Gender Information Value Date Recorded Sex Assigned at Not on file Legal Sex Female 7:00 PM CDT Gender Identity Not on file Sexual Orientation Not on file documented as of this encounter Miscellaneous Notes * Cerner Conversion Note - Jason ProviderMD - 02/01/2020 10:56 AM CDT Stroke/Warfarin [...]
--- OUTSIDE RECORDS SUMMARY | 2025-01-29 08:52 | XMS_ITS | Encounter Summary ---
Author Organization [employer] ([place], [place]) Address [address] [place] [address] Care Team Providers Care Product Consultant Name Role Phone Unavailable Primary Care Provider Unavailabl e Encounter Details Date Type Department Care Team (Late st Contact Info) Description 01/30/2020 Transcribed Document [facility] [place] [facility] [place] [address] ProviderJason MD [facility] [place], [place] [id number] Social History Tobacco Use Types Packs/Day Years Used Date Smoking Tobacco: Never Assessed Comments Unknown Sex and Gender Information Value Date Recorded Sex Assigned at Not on file Legal Sex Female 7:00 PM CDT Gender Identity Not on file Sexual Orientation Not on file documented as of this encounter Miscellaneous Notes * Cerner Conversion Note - Jason Willis MD - 01/30/2020 2:48 PM CDT On Going Discharge Planning Entered On: 01/30/2020 14:48 EDT Performed On: 01/30/2020 14:48 EDT by PHILIP CAMARILLO RN-Fleet Sales AssociateMaintenance Truck Driver Progress Note Discharge Arrangements : Patient Post-Acute [...] Attend Multidisciplinary Rounds? : No PHILIP CAMARILLO, RN-Fleet Sales Associate - 01/30/2020 14:48 EDT Narrative Progress Note Narrative Progress Note : On continuous EEG monitoring. PHILIP CAMARILLO RN-Fleet Sales Associate - 01/30/2020 14:48 EDT documented in this encounter Plan of Treatment Not on file documented as of this encounter Visit Diagnoses Not on filedocumented in this encounter
--- OUTSIDE RECORDS SUMMARY | 2025-01-29 08:52 | XMS_ITS | Referral Summary ---
Author Organization [employer] ([place], [place]) Address [address] [place] [address] Care Team Providers Care Certified Low Vision Therapist Name Role Phone Unavailable Primary Care Provider [...]
--- OUTSIDE RECORDS SUMMARY | 2025-01-29 08:52 | XMS_ITS | Encounter Summary ---
Author Organization [employer] ([place], [place], [place], [place]) Address [address] [place] [address] Care Team Providers Care Hop Picker Name Role Phone Unavailable Primary Care Provider Unavailabl e Encounter Details Date Type Department Care Team (Late st Contact Info) Description 02/01/2020 Transcribed Document [facility] [place] [address] [place] [address] ProviderJason MD [facility] [place] [address] Social History Tobacco Use Types Packs/Day Years Used Date Smoking Tobacco: Never Assessed Comments Unknown Sex and Gender Information Value Date Recorded Sex Assigned at Not on file Legal Sex Female 7:00 PM CDT Gender Identity Not on file Sexual Orientation Not on file documented as of this encounter Miscellaneous Notes * Cerner Conversion Note - Jason Willis MD - 02/01/2020 10:03 AM CDT [address] , [place] [address] Patient Copy Patient Information: Name: THANH MELENDEZ Current Date: 02/01/2020 10:03:34 : 1990 Patient Address: [place] [address] Patient Attending Physician: FARNAZ NAILS MD-LATISHA Primary Care Provider: Primary Care Provider Phone: Discharge Diagnosis: Abnormal electroencephalogram (EEG); Nonepileptic episode Weight on Admission: 150 lb, 0 oz Comment: Follow-up Instructions: With: Address: When: [place] [facility] [address] [place] [address] Business (1) Within 3 months Discharge Instructions: Immunizations [...] Assistance with quitting is available by contacting 2-027-LOMJ-NOW. This is a free resource providing counseling, [...] Be sure to sign up for the [employer] patient portal, which gives you 13/02 access to your medical information ??? including these discharge instructions ??? using your computer, smartphone, or tablet. Just go to [employer] to get started. Questions? Call . [facility] would like to thank you for allowing us to assist you with your healthcare needs. NORA Ferreira LAURA K, (or account service representative) have received the above patient education materials/instructions and have verbalized understanding: Patient Signature _ Date/Time Patient Smooth Plater Signature (if needed) Date/Time Clinician/Hospital Smooth Plater Signature (if needed) Date/Time documented in this encounter Plan of Treatment Not on file documented as of this encounter Visit Diagnoses Not on filedocumented in this encounter
--- OUTSIDE RECORDS SUMMARY | 2025-01-29 08:52 | XMS_ITS | Encounter Summary ---
Author Organization [employer] ([place]) Address [address] [place] [address] Care Team Providers Care Home Mission Worker Name Role Phone Unavailable Primary Care Provider Unavailabl e Encounter Details Date Type Department Care Team (Late st Contact Info) Description 01/31/2020 Transcribed Document [facility] [place] [address] [place] [address] ProviderJason MD [address] [place], [place] [address] Social History Tobacco Use Types Packs/Day Years Used Date Smoking Tobacco: Never Assessed Comments Unknown Sex and Gender Information Value Date Recorded Sex Assigned at Not on file Legal Sex Female 7:00 PM CDT Gender Identity Not on file Sexual Orientation Not on file documented as of this encounter Miscellaneous Notes * Cerner Conversion Note - Jason ProviderMD - 01/31/2020 5:00 AM CDT Chart Check - Review Order Profile Entered On: 01/31/2020 4:03 EDT Performed On: 01/31/2020 5:00 EDT by Day Lowry RN-TRAVELYASH Chart Check Power[employer]ans Initiated/Discontinued as Appropriate : Yes All Active Orders Reviewed : Yes Day Lowry RN-TRAVELER - 01/31/2020 4:03 EDT documented in this encounter Plan of Treatment Not on file documented as of this encounter Visit Diagnoses Not on filedocumented in this encounter
--- OUTSIDE RECORDS SUMMARY | 2025-01-29 08:52 | XMS_ITS | Encounter Summary ---
Author Organization [employer] ([place], [place], [place], [place]) Address [address] [place] [address] Care Team Providers Care Transformer Inspector Name Role Phone Unavailable Primary Care Provider Unavailabl e Encounter Details Date Type Department Care Team (Late st Contact Info) Description 02/01/2020 Transcribed Document [facility] [place] [address] [place] [address] ProviderJason MD [address] [place], [place] [address] Social History Tobacco Use Types Packs/Day Years Used Date Smoking Tobacco: Never Assessed Comments Unknown Sex and Gender Information Value Date Recorded Sex Assigned at Not on file Legal Sex Female 7:00 PM CDT Gender Identity Not on file Sexual Orientation Not on file documented as of this encounter Miscellaneous Notes * Cerner Conversion Note - Jason ProviderMD - 02/01/2020 5:00 AM CDT Chart Check - Review Order Profile Entered On: 02/01/2020 6:53 EDT Performed On: 02/01/2020 5:00 EDT by Yolanda Santos RN Chart Check Powerplans Initiated/Discontinued as Appropriate : Yes All Active Orders Reviewed : Yes Yolanda Santos RN - 02/01/2020 6:53 EDT Electronically signed by Faby [facility] Conversion Career Services Officer Reny at 11/07/2022 6:39 PM CDT documented in this encounter Plan of Treatment Not on file documented as of this encounter Visit Diagnoses Not on filedocumented in this encounter
--- OUTSIDE RECORDS SUMMARY | 2025-01-29 08:52 | XMS_ITS | Encounter Summary ---
Author Organization [employer] ([place]) Address [address] [place] [address] Care Team Providers Care Casino Gaming Inspector Name Role Phone Unavailable Primary Care Provider Unavailabl e Encounter Details Date Type Department Care Team (Late st Contact Info) Description 01/31/2020 Transcribed Document [facility] [place] [address] [place] [address] ProviderJason MD [address] [place], [place] [address] Social History Tobacco Use Types Packs/Day Years [...] EDT Height Source Stated Height Entry Format [place] Height/Length, [place] (ft) 5 ft Height/Length [place] 2 Inch CLINICALHEIGHT 157.48 cm [place] Body Weight 50 kg Weight Source Standing scale Weight Entry Format [place] Weight Cambodian lb 150 lb CLINICALWEIGHT 68.18 kg Body Surface Area (BSA) 1.69 m2 Body Mass Index 27.5 kg/m2 HI , Vitals Signs (last 24 hrs) Last Charted Minimum Maximum Temp 98.3 (JAN 30 05:39) 98.3 (JAN 30 05:39) 98.7 (JAN 30 00:00) Mon HR 64 (JAN 30 05:39) 63 (JAN 30 00:00) 64 (JAN 30 05:39) Resp Rate 16 (JAN 30:39) 16 (JAN 30 00:00) 16 (JAN 30:00) SBP 109 (JAN 30:39) 99 (JAN 30:00) 109 (JAN 30:39) DBP L 52 (JAN 30:39) L 52 (JAN 30:00) L 52 (JAN 30:) MAP 69 (JAN 30:39) 69 (JAN 30:39) 70 (JAN 30:) General: [...]
--- OUTSIDE RECORDS SUMMARY | 2025-01-29 08:52 | XMS_ITS | Encounter Summary ---
Author Organization [employer] ([place]) Address [address] [place] [address] Care Team Providers Care Steam Finisher Name Role Phone Unavailable Primary Care Provider Unavailabl e Encounter Details Date Type Department Care Team (Late st Contact Info) Description 01/30/2020 Transcribed Document [facility] [place] [facility] [place] [address] ProviderJason MD [address] [place] [address] Social History Tobacco Use Types Packs/Day Years Used Date Smoking Tobacco: Never Assessed Comments Unknown Sex and Gender Information Value Date Recorded Sex Assigned at Not on file Legal Sex Female 7:00 PM CDT Gender Identity Not on file Sexual Orientation Not on file documented as of this encounter Miscellaneous Notes * Cerner Conversion Note - Jason Willis MD - 01/30/2020 3:27 PM CDT EPILEPSY ADMISSION [...] to pinprick and light touch COORDINATION: Normal qtjkqz-ta-glme. Normal rapid alternating movements. GAIT: Normal, including [...] 6 hours p.r.n. for headache or pain. /[id number] MD SINGH Singh/HARMAN / TAF / MODL Electronically signed by Faby, Joey Conversion Fire Fighting Equipment Specialist Cerner at 11/07/2022 6:23 PM CDT documented in this encounter Plan of Treatment Not on file documented as of this encounter Visit Diagnoses Not on filedocumented in this encounter
--- OUTSIDE RECORDS SUMMARY | 2025-01-29 08:52 | XMS_ITS | Encounter Summary ---
Author Organization [employer] ([place], [place], [place], [place]) Address [address] [place] [address] Care Team Providers Care Maintenance Advisor Name Role Phone Unavailable Primary Care Provider Unavailabl e Encounter Details Date Type Department Care Team (Late st Contact Info) Description 01/31/2020 Transcribed Document [facility] [place] Family Medicine [address] [place] [address] ProviderJason MD [address] [place], [place] [address] Social History Tobacco Use Types Packs/Day Years Used Date Smoking Tobacco: Never Assessed Comments Unknown Sex and Gender Information Value Date Recorded Sex Assigned at Not on file Legal Sex Female 7:00 PM CDT Gender Identity Not on file Sexual Orientation Not on file documented as of this encounter Miscellaneous Notes * Cerner Conversion Note - Historical ProviderMD - 01/31/2020 2:00 AM CDT Social Worker School Details Entered On: 01/31/2020 4:02 EDT Performed [...]
--- OUTSIDE RECORDS SUMMARY | 2025-01-29 08:52 | XMS_ITS | Encounter Summary ---
Author Organization [employer] ([place], [place], [place], [place]) Address [address] [place] [address] Care Team Providers Care Fig Bar Machine Operator Name Role Phone Unavailable Primary Care Provider Unavailabl e Encounter Details Date Type Department Care Team (Late st Contact Info) Description 01/30/2020 Transcribed Document [facility] [place] [address] [place] [address] ProviderJason MD [address] [place], [place] [address] Social History Tobacco Use Types Packs/Day Years Used Date Smoking Tobacco: Never Assessed Comments Unknown Sex and Gender Information Value Date Recorded Sex Assigned at Not on file Legal Sex Female 7:00 PM CDT Gender Identity Not on file Sexual Orientation Not on file documented as of this encounter Miscellaneous Notes * Cerner Conversion Note - Jason ProviderMD - 01/30/2020 3:31 PM CDT Neurodiagnostics Event Note Entered On: 01/30/2020 15:31 EDT Performed On: 01/30/2020 15:31 EDT by DEB HEBERT Neurodiagnostic Tech Neurodiagnostics Event Note Neurodiagnostic Event Date/Time : 01/30/2020 15:31 EDT Neurodiagnostic Event Location : Neurodiagnostic department Neurodiagnostic Event Details : Procedure completed DEB HEBERT Neuromarlena Tech - 01/30/2020 15:31 EDT documented in this encounter Plan of Treatment Not on file documented as of this encounter Visit Diagnoses Not on filedocumented in this encounter
--- OUTSIDE RECORDS SUMMARY | 2025-01-29 08:52 | XMS_ITS | Encounter Summary ---
Author Organization [employer] ([place]) Address [address] [place] [address] Care Team Providers Care Patrol Captain Name Role Phone Unavailable Primary Care Provider Unavailabl e Encounter Details Date Type Department Care Team (Late st Contact Info) Description 02/01/2020 Transcribed Document [facility] [place] [facility] [place] [address] ProviderJason MD [address] [place] [id number] Social History Tobacco Use Types Packs/Day Years Used Date Smoking Tobacco: Never Assessed Comments Unknown Sex and Gender Information Value Date Recorded Sex Assigned at Not on file Legal Sex Female 7:00 PM CDT Gender Identity Not on file Sexual Orientation Not on file documented as of this encounter Miscellaneous Notes * Cerner Conversion Note - Jason ProviderMD - 02/01/2020 10:06 AM CDT DATE [...] Normal cranial nerves. Normal motor exam. Normal zxbvye-ar-dwcq. DISCHARGE INSTRUCTIONS: 1. No driving. 2. Multivitamins one tablet daily. 3. Follow up with Dr. Johnson in 3 months. /[id number] MD SINGH Singh/HARMAN / SINGH / MODL /[id number] documented in this encounter Plan of Treatment Not on file documented as of this encounter Visit Diagnoses Not on filedocumented in this encounter
--- OUTSIDE RECORDS SUMMARY | 2025-01-29 08:52 | XMS_ITS | Encounter Summary ---
Author Organization [employer] ([place]) Address [address] [place] [address] Care Team Providers Care Comic Book Writer Name Role Phone Unavailable Primary Care Provider Unavailabl e Encounter Details Date Type Department Care Team (Late st Contact Info) Description 02/01/[address] [facility] [place] [facility] [address] ProviderJason MD [address] [place], [place] [address] Social History Tobacco Use Types Packs/Day Years Used Date Smoking Tobacco: Never Assessed Comments Unknown Sex and Gender Information Value Date Recorded Sex Assigned at Not on file Legal Sex Female 7:00 PM CDT Gender Identity Not on file Sexual Orientation Not on file documented as of this encounter Miscellaneous Notes * Cerner Conversion Note - Jason Willis MD - 02/01/2020 10:56 AM CDT Patient Education [...] during a seizure. General instructions ??? Take qtxv-ofm-wgzorjy and prescription medicines only as told by [...] 03/06/2018 Document Revised: 03/06/2018 Document Reviewed: 03/06/2018 [employer] Interactive Patient Education ? 2019 [employer] Neurology Epilepsy Epilepsy is when a person [...] these instructions at home: Medicines ??? Take vzih-owe-bfbqxgh and prescription medicines only as told by [...] check with your local DMV (department of motor vehicles) to find out about local driving [...] 05/07/2010 Document Revised: 03/04/2019 Document Reviewed: 03/04/2019 [employer] Interactive Patient Education ? 2019 [employer] documented in this encounter Plan of Treatment Not on file documented as of this encounter Visit Diagnoses Not on filedocumented in this encounter
--- OUTSIDE RECORDS SUMMARY | 2025-01-29 08:52 | XMS_ITS | Encounter Summary ---
Author Organization [employer] ([place]) Address [address] [place] [address] Care Team Providers Care Customs Entry Clerk Name Role Phone Unavailable Primary Care Provider Unavailabl e Encounter Details Date Type Department Care Team (Late st Contact Info) Description 01/31/2020 Transcribed Document [facility] [place] [address] [place] [address] ProviderJason MD [address] [place], [place] [address] Social History Tobacco Use Types Packs/Day Years Used Date Smoking Tobacco: Never Assessed Comments Unknown Sex and Gender Information Value Date Recorded Sex Assigned at Not on file Legal Sex Female 7:00 PM CDT Gender Identity Not on file Sexual Orientation Not on file documented as of this encounter Miscellaneous Notes * Cerner Conversion Note - Jason ProviderMD - 01/31/2020 9:49 AM CDT UM Authorization Entered On: 01/31/2020 9:50 EDT Performed On: 01/31/2020 9:49 EDT by NICKOLAS LYN RN-Utilization Review Primary Insurance Authorization Authorization and Policy Numbers : Insurance 1 Health Plan: [facility] Policy Number: [id number] Authorization Number: [employer] Insurance Primary Name : [facility] Policy Number: [id number] Authorized Service Begin Date-Primary : 01/30/2020 EDT Authorization Comments-Primary : no precert required per [facility] notes Historical Authorization Comments-Primary : No Authorization Comments Found NICKOLAS LYN, RN-Utilization Review - 01/31/2020 9:49 EDT documented in this encounter Plan of Treatment Not on file documented as of this encounter Visit Diagnoses Not on filedocumented in this encounter
--- OUTSIDE RECORDS SUMMARY | 2025-01-29 08:52 | XMS_ITS | Clinical Summary ---
Author Organization [employer] ([place]) Address [address] [place] [address] Care Team Providers Care Casino Floorperson Name Role Phone Unavailable Primary Care Provider [...]
--- OUTSIDE RECORDS SUMMARY | 2025-01-29 08:52 | XMS_ITS | Encounter Summary ---
Author Organization [employer] ([place]) Address [address] [place] [address] Care Team Providers Care Cake Wringer Name Role Phone Unavailable Primary Care Provider Unavailabl e Encounter Details Date Type Department Care Team (Late st Contact Info) Description 02/01/2020 Transcribed Document [facility] [place] Family [place] [address] [place] [address] ProviderJason MD [address] [place] [address] Social History Tobacco Use Types Packs/Day Years Used Date Smoking Tobacco: Never Assessed Comments Unknown Sex and Gender Information Value Date Recorded Sex Assigned at Not on file Legal Sex Female 7:00 PM CDT Gender Identity Not on file Sexual Orientation Not on file documented as of this encounter Miscellaneous Notes * Cerner Conversion Note - aJson Willis MD - 02/01/2020 10:58 AM CDT [place] [id number] THANH MELENDEZ :1990 Visit Time:01/30/2020 Your [...] 3 months Where: [address] [place] [address]- Business (1) Medications What How Much When Instructions [...] these instructions at home: Medicines ??? Take ccyb-wzw-zfsfeyn and prescription medicines only as told by [...] check with your local DMV (department of [employer]) to find out about local driving laws. [...] 05/07/2010 Document Revised: 03/04/2019 Document Reviewed: 03/04/2019 [employer] Interactive Patient Education ?? 2020 [employer]. Coping With Non-Epileptic Seizures Epileptic seizures are [...] during a seizure. General instructions ??? Take xmuu-ljq-rizbaad and prescription medicines only as told by [...] 03/06/2018 Document Revised: 03/06/2018 Document Reviewed: 03/06/2018 [employer] Interactive Patient Education ?? 2019 [employer]. Emergency Awareness and Preventative Care STROKE is [...] Assistance with quitting is available by contacting 1-334-IWWD-NOW. This is a free resource providing counseling, [...] was given the opportunity to ask questions. Patient/Registered Associate Name: Patient/Registered Associate Signature: Relationship to Patient: Clinician/Hospital Registered Associate Signature: Date: documented in this encounter Plan of Treatment Not on file documented as of this encounter Visit Diagnoses Not on filedocumented in this encounter
--- OUTSIDE RECORDS SUMMARY | 2025-01-29 08:52 | XMS_ITS | Encounter Summary ---
Author Organization [employer] ([place], [place], [place]) Address [address] [place] [address] Care Team Providers Care Internet Project Manager Name Role Phone Unavailable Primary Care Provider Unavailabl e Encounter Details Date Type Department Care Team (Late st Contact Info) Description 02/01/2020 Transcribed Document [facility] [place] [facility] [place] [address] ProviderJason MD [address] [place] [id number] Social History Tobacco Use Types Packs/Day Years Used Date Smoking Tobacco: Never Assessed Comments Unknown Sex and Gender Information Value Date Recorded Sex Assigned at Not on file Legal Sex Female 7:00 PM CDT Gender Identity Not on file Sexual Orientation Not on file documented as of this encounter Miscellaneous Notes * Cerner Conversion Note - Jason ProviderMD - 02/01/2020 10:56 AM CDT Nursing [...]
--- OUTSIDE RECORDS SUMMARY | 2025-01-29 08:52 | XMS_ITS | Encounter Summary ---
Author Organization [employer] ([place], [place], [place], [place]) Address [address] [place] [address] Care Team Providers Care Mold Press Operator Name Role Phone Unavailable Primary Care Provider Unavailabl e Encounter Details Date Type Department Care Team (Late st Contact Info) Description 01/30/2020 Transcribed Document [facility] [place] [facility] [address] ProviderJason MD [facility] [place], [place] [address] Social History Tobacco Use Types Packs/Day Years Used Date Smoking Tobacco: Never Assessed Comments Unknown Sex and Gender Information Value Date Recorded Sex Assigned at Not on file Legal Sex Female 7:00 PM CDT Gender Identity Not on file Sexual Orientation Not on file documented as of this encounter Miscellaneous Notes * Cerner Conversion Note - Jason ProviderMD - 01/30/2020 9:58 AM CDT Admission [...] #2 Relationship : n/a Primary Language : Ivorian Communication Barrier : None Frame Polisher Needed : No Perla Guevara RN - [...] Scale Risk Level : 0-24 Low Risk [place] Fall Interventions : Adequate lighting, Bed in [...] Source : Stated Height Entry Format : [place] Height, Feet : 5 ft(Converted to: 152 cm, 60 Inch) Height, Inches : 2 Inch(Converted to: 0 ft 2 Inch, 5.08 cm) Clinical Height : 157.48 cm Weight Source : Standing scale Weight Entry Format : [place]aus Clinical Dosing Weight : 68.18 kg Weight, Pounds : 150 lb Body Surface Area (BSA) : 1.69 m2 Body Mass Index : 27.5 kg/m2 (HI) [place] Body Weight : 50 kg Perla Guevara [...] Perla Guevara RN - 01/30/2020 10:22 EDT [place] Suicide Severity Rating Scale (C-SSRS) CSSRS Past [...]
--- OUTSIDE RECORDS SUMMARY | 2025-01-29 08:52 | XMS_ITS | Encounter Summary ---
Author Organization Healthcare Address [address] [place] [address] Care Team Providers Care Tube Worker Name Role Phone Balwinder Blood MD Primary Care Provider [phone] Encounter Details Date Type Department Care Team (Late st Contact Info) Description 12/31/2024 Telephone [place] [facility] [address] [place] [address] Laurel Gamble, PA [address] [place] [address] Social History Tobacco Use Types [...] documented as of this encounter Care Teams Tube Worker Relationship Specialty Start Date End Date Balwinder Blood MD [address] [place] [address] PCP - General 11/05/24 documented as of this encounter
--- OUTSIDE RECORDS SUMMARY | 2025-01-29 08:52 | XMS_ITS | Encounter Summary ---
Author Organization Healthcare Address [address] [place] [address] Care Team Providers Care Wound Specialist Name Role Phone Aristeo Black MD Primary Care Provider [phone] Balwinder Blood MD Primary Care Provider [phone]- [phone] Reason for Referral * Consultation (Routine) - Closed Specialty Diagnoses / Procedures Referred By Patricio dutton Referred To Contact Neurology Diagnoses Intractable chronic migraine without aura and without status migrainosus Angeles Johnson MD [address] [facility] [address] [place] [address] Phone: tel: fax: Adam Ontiveros MD [address] [facility] [address] [place] [address] Phone: tel: fax: Referral ID Status Reason Start Date Expiration Date V isits Requested Visits Authorized [id number] Closed Specialty Services Required 04/02/2024 10/02/2025 1 1 Encounter Details Date Type Department Care Team (Late st Contact Info) Description 04/02/2024 Community [facility] [address] [place] [address] Angeles Johnson MD [address] [facility] [address] [place] [address] Intractable chronic migraine without aura [...] Primary documented in this encounter Care Teams Wound Specialist Relationship Specialty Start Date End Date Aristeo Black MD [address] [address] PCP - General 12/04/20 11/04/24 Balwinder Blood MD [address] [place] [address] PCP - General 11/05/24 documented as of this encounter
--- OUTSIDE RECORDS SUMMARY | 2025-01-29 08:52 | XMS_ITS | Encounter Summary ---
Author Organization [employer] ([place], [place]) Address [address] [place] [address] Care Team Providers Care Educational Adviser Name Role Phone Unavailable Primary Care Provider Unavailabl e Encounter Details Date Type Department Care Team (Late st Contact Info) Description 02/01/2020 Transcribed Document [facility] Family Medicine [facility] [place] [address] ProviderJason MD [address] [place], [place] [address] Social History Tobacco Use Types Packs/Day Years Used Date Smoking Tobacco: Never Assessed Comments Unknown Sex and Gender Information Value Date Recorded Sex Assigned at Not on file Legal Sex Female 7:00 PM CDT Gender Identity Not on file Sexual Orientation Not on file documented as of this encounter Miscellaneous Notes * Cerner Conversion Note - Jason Willis MD - 02/01/2020 10:51 AM CDT DATE OF SERVICE: 01/31/2020 REPORT TYPE: EEG REFERRING PHYSICIAN: Chilango Hendricks MD REPORT TITLE: Video Electroencephalogram Report STUDY DURATION: One day. HISTORY: This is a 29-year-old woman being evaluated for recurrent seizures. EEG VIDEO MONITORING METHODOLOGY: Time-locked EEG-video monitoring was performed using the 32-channel [employer] monitoring system. The seizure detection computer was [...] potential epileptogenicity in the left temporal region. /[id number] MD SINGH Singh/AQ / TAF / MODL /[id number] documented in this encounter Plan of Treatment Not on file documented as of this encounter Visit Diagnoses Not on filedocumented in this encounter
--- OUTSIDE RECORDS SUMMARY | 2025-01-29 08:52 | XMS_ITS | Encounter Summary ---
Author Organization [employer] ([place], [place]) Address [address] [place] [address] Care Team Providers Care Cosmetics Supervisor Name Role Phone Unavailable Primary Care Provider Unavailabl e Encounter Details Date Type Department Care Team (Late st Contact Info) Description 02/01/2020 Transcribed Document [facility] [place] Family Medicine [address] [place] [address] ProviderJason MD [address] [place], [place] [address] Social History Tobacco Use Types Packs/Day Years Used Date Smoking Tobacco: Never Assessed Comments Unknown Sex and Gender Information Value Date Recorded Sex Assigned at Not on file Legal Sex Female 7:00 PM CDT Gender Identity Not on file Sexual Orientation Not on file documented as of this encounter Miscellaneous Notes * Cerner Conversion Note - Jason ProviderMD - 02/01/2020 2:00 AM CDT Manager Regional Details Entered On: 02/01/2020 2:51 EDT Performed [...] Yolanda Santos, RN - 02/01/2020 2:51 EDT Electronically signed by Asif Hobbs Conversion Associate Professor Of Chemistry Cerner at 11/07/2022 6:43 PM CDT documented in this encounter Plan of Treatment Not on file documented as of this encounter Visit Diagnoses Not on filedocumented in this encounter
[2025-01-29 09:20] LABS: Hematocrit 39.5 % (37.0-47.0); Hemoglobin 13.2 g/dL (12.2-16.2); Immature Granulocytes % 0.5 %; Mean Corpuscular HGB Conc 33.4 g/dL (31.8-35.4); Mean Corpuscular Hemoglobin 31.0 pg (27.0-31.2); Mean Corpuscular Volume 92.7 fl (81-99); Nucleated Red Blood Cells % 0 %; Platelet Count 268 K/mm3 (142-424); Red Blood Count 4.26 M/mm3 (4.20-5.40); Red Cell Distribution Width-SD 42.3 fL; White Blood Count 11.2 K/mm3 (4.8-10.8)
[2025-01-29 10:13] LABS: Alanine Aminotransferase 16 U/L (12-78); Albumin Level 4.6 g/dl (3.5-5.0); Albumin/Globulin Ratio 2.0 (1.1-1.8); Alkaline Phosphatase 40 U/L (38-126); Amylase 65 U/L (30-110); Anion Gap 13.7 mEq/L (5-15); Aspartate Amino Transferase 19 U/L (14-36); Bilirubin,Total 0.3 mg/dl (0.2-1.3); Blood Urea Nitrogen 7 mg/dl (7-17); Calcium 9.6 mg/dl (8.4-10.2); Carbon Dioxide 29 mmol/L (22.0-30.0); Chloride 100 mmol/L (98-107); Creatinine,Serum 0.50 mg/dl (0.52-1.04); Estimated Glomerular Filt Rate 143 ml/min (>60); GFR (African American) 173 ML/MIN (>60); Globulin 2.3 g/dL (1.3-3.2); Glucose 62 mg/dl (74-100); Iron 124 ug/dL (37-170); Potassium 3.7 mmoL/L (3.5-5.1); Sodium 139 mmol/L (136-145); Total Protein,Serum 6.9 g/dl (6.3-8.2)
[2025-01-29 11:04] LABS: Ferritin 69.8 ng/ml (6.24-137)
[2025-01-29 11:12] LABS: Total Iron Binding Capacity 270 ug/dL (265-497)
[2025-01-29 13:08] LABS: C-Reactive Protein < 0.3 mg/L (0-4)
== END 2025-01-29 23:59 | disposition home or self-care (01) ==
LOC: LAB 08:50
PROVIDERS: PCP Family Medicine; Visit Provider Internal Medicine Gastroenterology
DX: K62.5 Hemorrhage of anus and rectum (principal); R19.5 Other fecal abnormalities; K74.69 Other cirrhosis of liver; B19.20 Unspecified viral hepatitis C without hepatic coma
CPT/HCPCS: 36415; 80053; 82150; 82728; 83540; 83550; 85025; 86140

== ENCOUNTER 2025-02-13 15:10 | Outpatient (POV) | payer OTHER, SELFPAY ==
--- OUTSIDE RECORDS SUMMARY | 2025-02-13 15:14 | XMS_ITS | Encounter Summary ---
Author Organization [employer] ([place], [place]) Address [address] [place] [address] Care Team Providers Care Deputy Sheriff Bailiff Name Role Phone Unavailable Primary Care Provider Unavailabl e Encounter Details Date Type Department Care Team (Late st Contact Info) Description 02/01/2020 Transcribed Document [facility] [place] [facility] [place] [address] ProviderJason MD [address] [place], [place] [address] Social History Tobacco Use Types Packs/Day Years [...] EEG-video monitoring was performed using the 32-channel [employer] monitoring system. The seizure detection computer was [...] potential epileptogenicity in the left temporal region. /[id number] MD SINGH Singh/AQ / TAF / MODL /[id number] documented in this encounter Plan of Treatment Not on file documented as of this encounter Visit Diagnoses Not on filedocumented in this encounter
--- OUTSIDE RECORDS SUMMARY | 2025-02-13 15:14 | XMS_ITS | Encounter Summary ---
Author Organization [employer] ([place], [place], [place], [place]) Address [address] [place] [address] Care Team Providers Care Top Carrier Name Role Phone Unavailable Primary Care Provider Unavailabl e Encounter Details Date Type Department Care Team (Late st Contact Info) Description 01/31/2020 Transcribed Document [facility] [place] [address] [place] [address] ProviderJason MD [address] [place], [place] [address] Social History Tobacco Use Types Packs/Day Years Used Date Smoking Tobacco: Never Assessed Comments Unknown Sex and Gender Information Value Date Recorded Sex Assigned at Not on file Legal Sex Female 7:00 PM CDT Gender Identity Not on file Sexual Orientation Not on file documented as of this encounter Miscellaneous Notes * Cerner Conversion Note - Historical ProviderMD - 01/31/2020 2:00 AM CDT Pelt Dropper Details Entered On: 01/31/2020 4:02 EDT Performed [...]
--- OUTSIDE RECORDS SUMMARY | 2025-02-13 15:14 | XMS_ITS | Encounter Summary ---
Author Organization [employer] ([place], [place], [place]) Address [address] [place] [address] Care Team Providers Care Bottle Dealer Name Role Phone Unavailable Primary Care Provider Unavailabl e Encounter Details Date Type Department Care Team (Late st Contact Info) Description 01/30/2020 Transcribed Document [facility] [place] [facility] [place] [address] ProviderJason MD [address] [place], [place] [address] Social History Tobacco Use Types Packs/Day Years [...] On: 01/30/2020 14:47 EDT by PHILIP CAMARILLO RN-Linux Unix System Administrator Initial Assessment I Previously Documented Living Environment : No qualifying data available. Living Situation : Home Patient Lives With : Spouse Is the Patient a Caregiver at Home? : No Emergency Contact #1 : Milind Dodd Emergency Contact #1 Emergency Contact #1 Relationship : Does Patient have PCP Listed? : Yes Legal Guardian : No Is Guardianship Needed : No PHILIP CAMARILLO RN-Linux Unix System Administrator - 01/30/2020 14:47 EDT Initial Assessment II Sensory and Motor Deficits : None Current Home Treatments and Equipment : None Does the Patient have a Floor to SNF Benefit? : No PHILIP CAMARILLO RN-Linux Unix System Administrator - 01/30/2020 14:47 EDT Discharge Needs I Anticipated Discharge Date : 02/02/2020 EDT Anticipated Discharge To, CM : Home with family care Current Home Treatment/Equipment : Current Home Treatment/Equipment No qualifying data available. Post Acute/Home Treatments : None Documentation Status Complete : Yes PHILIP CAMARILLO RN-Linux Unix System Administrator - 01/30/2020 14:47 EDT Discharge Needs II Professional Skilled Services : Professional Skilled Services No qualifying data available. Needs Assistance with Transportation : No PHILIP CAMARILLO RN-Linux Unix System Administrator - 01/30/2020 14:47 EDT Narrative Note Narrative Note : No discharge needs noted. PHILIP CAMARILLO RN-Linux Unix System Administrator - 01/30/2020 14:47 EDT documented in this encounter Plan of Treatment Not on file documented as of this encounter Visit Diagnoses Not on filedocumented in this encounter
--- OUTSIDE RECORDS SUMMARY | 2025-02-13 15:14 | XMS_ITS | Encounter Summary ---
Author Organization [employer] ([place], [place], [place], [place]) Address [address] [place] [address] Care Team Providers Care Green Chain Offbearer Name Role Phone Unavailable Primary Care Provider Unavailabl e Encounter Details Date Type Department Care Team (Late st Contact Info) Description 02/01/2020 Transcribed Document [facility] [place] [facility] [place] [address] ProviderJason MD [address] [place], [place] [address] Social History Tobacco Use Types Packs/Day Years [...] EEG-video monitoring was performed using the 32-channel [employer] monitoring system. The seizure detection computer was [...] potential epileptogenicity in the left temporal region. /[id number] MD SINGH Singh/HARMAN / TAF / MODL /[id number] documented in this encounter Plan of Treatment Not on file documented as of this encounter Visit Diagnoses Not on filedocumented in this encounter
--- OUTSIDE RECORDS SUMMARY | 2025-02-13 15:14 | XMS_ITS | Clinical Summary ---
Author Organization [facility] Address [address] [place] [address] Care Team Providers Care Mold Stamper And Repairer Name Role Phone Michael Faria MD Primary Care Provider [phone] Allergies Active Allergy Reactions Criticality Noted Date Comments Penicillins Hives 08/23/2021 Promethazine Rash Low 10/18/2013 Medications rivaroxaban (XARELTO) 20 MG tablet Take 20 mg by mouth Daily. Active Rimegepant Sulfate (NURTEC PO) Take 75 capsules by mouth. Active Drospirenone (SLYND PO) Take by mouth. Acti ve armodafinil (NUVIGIL) 150 MG tablet Take 150 mg by mouth Daily. Active Galcanezumab-gn lm (EMGALITY SC) Inject under the skin into the appropriate area as directed. Active Active Problems No known active problems Social History Tobacco Use Types Packs/Day Years Used Date Smoking Tobacco: Every Day Tobacco Cessation:Ready to Q uit: No; Counseling Given: No Alcohol Use Standard Drinks/Week Comments Never 0 (1 standard drink = 0.6 oz pur e alcohol) Abuse Screen Answer Date Recorded Unsafe at Home or Work/School Not on file Feels Threatened by Someone? Not on file 04/2023 Does Anyone Keep You from Co ntacting Others or Doint Things Outside the Home? Not on file 05/02/2023 Physical Sign of Abuse Present Not on file 1 Housing Stability Answer Date Recorded Current Living Arrangements Not on file 04/23 Potentially Unsafe Housing Conditions Not on bunny e 05/02/2023 Family and Community Support Answer Chung e Recorded Help with Day-to-Day Activities Not on file 05/02/2023 Lonely or Isolated Not on file 05/02/2023 Employment Answer Date Recorded Do you want help finding or keeping work or a nicole b? Not on file 05/02/2023 Disabilities Answer Date Recorded Concentrating, Remembering, or Making Decisions Difficulty Not on file 05/02/2023 Doing Errands Independently Difficulty Not on fi le 05/02/2023 Education Answer Date Recorded Help with school or training? Not on file Preferred Language Not on file 05/02/2023 Comments Unknown Sex and Gender Information Value Date Recorded Sex Assigned at Not on file Legal Sex Female 1:45 PM EDT Gender Identity Not on file Sexual Orientation Not on file Last Filed Vital Signs Vital Sign Reading Time Taken Comments Blood Pressure 114/76 08/23/2021 1:06 PM EST Pulse 60 10/18/2013 2:15 PM EDT Temperature 36.6 C (97.8 F) 10/18/2013 2:15 PM EDT Respiratory Rate 16 10/18/2013 2:15 PM EDT Oxygen Saturation - - Inhaled Oxygen Concentration - - Weight 59 kg (130 lb) 08/23/2021 1:06 PM EST Height 157.5 cm (5' 2 ) 08/23/2021 1:06 PM EST Body Mass Index 23.78 08/23/2021 1:06 PM EST Plan of Treatment Health Maintenance Due Date Last Done Comments Annual Gynecologic Pelvic an d Breast Exam 1992 TDAP/TD VACCINES (1 - Tdap) 09/30/2011 ANNUAL PHYSICAL 08/23/2021 HEPATITIS C SCREENING 08/23/2021 COVID-19 Vaccine (1 - 2023-2 5 season) 2024 INFLUENZA VACCINE 04/23/2025 Pneumococcal Vaccine 0-49 Aged Out No longer eligible based on patient's age to complete this topic Insurance on file [facility] Care Teams Mold Stamper And Repairer Relationship Specialty Start Date End Date Michael Faria MD [address] [facility] [address] [place] [address] PCP - General Internal Medicine 08/23/21
--- OUTSIDE RECORDS SUMMARY | 2025-02-13 15:14 | XMS_ITS | Encounter Summary ---
Author Organization [employer] ([place]) Address [address] [place] [address] Care Team Providers Care Podiatry Doctor Name Role Phone Unavailable Primary Care Provider Unavailabl e Encounter Details Date Type Department Care Team (Late st Contact Info) Description 02/01/2020 Transcribed Document [facility] [place] [address] [place] [address] ProviderJason MD [address] [place], [place] [address] Social History Tobacco Use Types Packs/Day Years [...] 02/01/2020 6:53 EDT Electronically signed by Faby [facility] Conversion Outsole Leveler Reny at 11/07/2022 6:39 PM CDT documented in this encounter Plan of Treatment Not on file documented as of this encounter Visit Diagnoses Not on filedocumented in this encounter
--- OUTSIDE RECORDS SUMMARY | 2025-02-13 15:14 | XMS_ITS | Encounter Summary ---
Author Organization [employer] ([place], [place]) Address [address] [place] [address] Care Team Providers Care Market Relationship Manager Name Role Phone Unavailable Primary Care Provider Unavailabl e Encounter Details Date Type Department Care Team (Late st Contact Info) Description 01/30/2020 Transcribed Document [facility] [place] [facility] [place] [address] ProviderJason MD [address] [place] [address] Social History Tobacco Use Types Packs/Day Years [...] to pinprick and light touch COORDINATION: Normal rwiyxo-as-pxoi. Normal rapid alternating movements. GAIT: Normal, including [...] 6 hours p.r.n. for headache or pain. /[id number] MD SINGH Singh/HARMAN / TAF / MODL documented in this encounter Plan of Treatment Not on file documented as of this encounter Visit Diagnoses Not on filedocumented in this encounter
--- OUTSIDE RECORDS SUMMARY | 2025-02-13 15:14 | XMS_ITS | Encounter Summary ---
Author Organization [email or web address] ([place], [place], [place]) Address [address] [place] [address] Care Team Providers Care Dermatology Nurse Practitioner Name Role Phone Unavailable Primary Care Provider Unavailabl e Encounter Details Date Type Department Care Team (Late st Contact Info) Description 02/01/2020 Transcribed Document [facility] [place] Family Medicine [facility] [place] [address] ProviderJason MD [address] [place], [place] [address] Social History Tobacco Use Types Packs/Day Years [...] during a seizure. General instructions ??? Take ufst-iuk-prgfyxh and prescription medicines only as told by [...] 03/06/2018 Document Revised: 03/06/2018 Document Reviewed: 03/06/2018 [employer] Interactive Patient Education ? 2019 [employer] Neurology Epilepsy Epilepsy is when a [...] these instructions at home: Medicines ??? Take tqxc-nkl-nttcpqu and prescription medicines only as told by [...] 05/07/2010 Document Revised: 03/04/2019 Document Reviewed: 03/04/2019 [employer] Interactive Patient Education ? 2019 [employer] documented in this encounter Plan of Treatment Not on file documented as of this encounter Visit Diagnoses Not on filedocumented in this encounter
--- OUTSIDE RECORDS SUMMARY | 2025-02-13 15:14 | XMS_ITS | Encounter Summary ---
Author Organization [employer] ([place]) Address [address] [place] [address] Care Team Providers Care Loader Malt House Name Role Phone Unavailable Primary Care Provider Unavailabl e Encounter Details Date Type Department Care Team (Late st Contact Info) Description 01/30/2020 Transcribed Document [facility] [place] [facility] [place] [address] ProviderJason MD [facility] [place], [place] [address] Social History Tobacco Use Types Packs/Day Years [...] On: 01/30/2020 14:48 EDT by PHILIP CAMARILLO RN-Painting SupervisorPodiatrist Orthopedic Progress Note Discharge Arrangements : Patient Post-Acute [...] Attend Multidisciplinary Rounds? : No PHILIP CAMARILLO, RN-Painting Supervisor - 01/30/2020 14:48 EDT Narrative Progress Note Narrative Progress Note : On continuous EEG monitoring. PHILIP CAMARILLO RN-Painting Supervisor - 01/30/2020 14:48 EDT documented in this encounter Plan of Treatment Not on file documented as of this encounter Visit Diagnoses Not on filedocumented in this encounter
--- OUTSIDE RECORDS SUMMARY | 2025-02-13 15:14 | XMS_ITS | Encounter Summary ---
Author Organization [employer] ([place]) Address [address] [place] [address] Care Team Providers Care Solar Field Service Technician Name Role Phone Unavailable Primary Care Provider Unavailabl e Encounter Details Date Type Department Care Team (Late st Contact Info) Description 02/01/2020 Transcribed Document [facility] [place] Family Medicine [address] [place] [address] ProviderJason MD [address] [place], [place] [address] Social History Tobacco Use Types Packs/Day Years Used Date Smoking Tobacco: Never Assessed Comments Unknown Sex and Gender Information Value Date Recorded Sex Assigned at Not on file Legal Sex Female 7:00 PM CDT Gender Identity Not on file Sexual Orientation Not on file documented as of this encounter Miscellaneous Notes * Cerner Conversion Note - Jason ProviderMD - 02/01/2020 2:00 AM CDT Foreman/Pile Driving And Erection Details Entered On: 02/01/2020 2:51 EDT Performed [...]
--- OUTSIDE RECORDS SUMMARY | 2025-02-13 15:14 | XMS_ITS | Clinical Summary ---
Author Organization [employer] ([place]) Address [address] [place] [address] Care Team Providers Care Roof Fitter Name Role Phone Unavailable Primary Care Provider [...]
--- OUTSIDE RECORDS SUMMARY | 2025-02-13 15:14 | XMS_ITS | Encounter Summary ---
Author Organization [employer] ([place]) Address [address] [place] [address] Care Team Providers Care Executive Officer Special Warfare Team Name Role Phone Unavailable Primary Care Provider Unavailabl e Encounter Details Date Type Department Care Team (Late st Contact Info) Description 02/01/2020 Transcribed Document [facility] [place] [address] [place] [address] ProviderJason MD [address] [place], [place] [address] Social History Tobacco Use Types Packs/Day Years [...]
--- OUTSIDE RECORDS SUMMARY | 2025-02-13 15:14 | XMS_ITS | Encounter Summary ---
Author Organization [employer] ([place]) Address [address] [place] [address] Care Team Providers Care Camp Dining Room Attendant Name Role Phone Unavailable Primary Care Provider Unavailabl e Encounter Details Date Type Department Care Team (Late st Contact Info) Description 01/31/2020 Transcribed Document [facility] [place] [address] [place] [address] ProviderJason MD [address] [place], [place] [address] Social History Tobacco Use Types Packs/Day Years [...] Policy Numbers : Insurance 1 Health Plan: [facility] Policy Number: [id number] Authorization Number: [employer] Insurance Primary Name : [facility] Policy Number: [id number] Authorized Service Begin Date-Primary : 01/30/2020 EDT Authorization Comments-Primary : no precert required per [facility] notes Historical Authorization Comments-Primary : No Authorization Comments Found NICKOLAS LYN, RN-Utilization Review - 01/31/2020 9:49 EDT documented in this encounter Plan of Treatment Not on file documented as of this encounter Visit Diagnoses Not on filedocumented in this encounter
--- OUTSIDE RECORDS SUMMARY | 2025-02-13 15:14 | XMS_ITS | Encounter Summary ---
Author Organization [employer] ([place]) Address [address] [place] [address] Care Team Providers Care Long Chain Dyeing Machine Operator Name Role Phone Unavailable Primary Care Provider Unavailabl e Encounter Details Date Type Department Care Team (Late st Contact Info) Description 01/30/2020 Transcribed Document [facility] [place] [address] [place] [address] ProviderJason MD [address] [place], [place] [address] Social History Tobacco Use Types Packs/Day Years [...]
--- OUTSIDE RECORDS SUMMARY | 2025-02-13 15:14 | XMS_ITS | Encounter Summary ---
Author Organization [employer] ([place], [place], [place], [place]) Address [address] [place] [address] Care Team Providers Care Paint Trimmer Pipe Bowls Name Role Phone Unavailable Primary Care Provider Unavailabl e Encounter Details Date Type Department Care Team (Late st Contact Info) Description 02/01/2020 Transcribed Document [facility] [place] Family Medicine [address] [place] [address] ProviderJason MD [address] [place] [address] Social History Tobacco Use Types [...] Willis MD - 02/01/2020 10:58 AM CDT [facility] [place] [address] THANH MELENDEZ :1990 Visit Time:01/30/2020 Your [...] 3 months Where: [address] [place] [address]- Business (1) Medications What How [...] these instructions at home: Medicines ??? Take iyeo-mpr-wiqhcsl and prescription medicines only as told by [...] check with your local DMV (department of deltaDNA) to find out about local driving laws. [...] 05/07/2010 Document Revised: 03/04/2019 Document Reviewed: 03/04/2019 [employer] Interactive Patient Education ?? 2020 [employer]. Coping With Non-Epileptic Seizures Epileptic seizures are [...] during a seizure. General instructions ??? Take jsbb-pbc-wnqgywo and prescription medicines only as told by [...] 03/06/2018 Document Revised: 03/06/2018 Document Reviewed: 03/06/2018 [employer] Interactive Patient Education ?? 2019 [employer]. Emergency Awareness and Preventative Care STROKE is [...] Assistance with quitting is available by contacting 9-906-WEZN-NOW. This is a free resource providing counseling, [...] was given the opportunity to ask questions. Patient/Research Nurse Name: Patient/Research Nurse Signature: Relationship to Patient: Clinician/Hospital Research Nurse Signature: Date: documented in this encounter Plan of Treatment Not on file documented as of this encounter Visit Diagnoses Not on filedocumented in this encounter
--- OUTSIDE RECORDS SUMMARY | 2025-02-13 15:14 | XMS_ITS | Encounter Summary ---
Author Organization [employer] ([place], [place], [place], [place]) Address [address] [place] [address] Care Team Providers Care Hospital Technician Name Role Phone Unavailable Primary Care Provider Unavailabl e Encounter Details Date Type Department Care Team (Late st Contact Info) Description 01/31/2020 Transcribed Document [facility] [place] Family Medicine [facility] [place] [address] ProviderJason MD [address] [place] [place], [place] [id number] Social History Tobacco Use Types Packs/Day Years [...] On: 01/31/2020 16:31 EDT by PHILIP CAMARILLO RN-Development ScientistGang Boss Progress Note Discharge Arrangements : Patient Post-Acute [...] Attend Multidisciplinary Rounds? : No PHILIP CAMARILLO, RN-Development Scientist - 01/31/2020 16:31 EDT Narrative Progress Note Narrative Progress Note : Continues on EEG monitoring. Historical Progress Note : On continuous EEG monitoring. PHILIP CAMARILLO RN-Development Scientist - 01/30/20 14:48:58 PHILIP CAMARILLO RN-Development Scientist - 01/31/2020 16:31 EDT documented in this encounter Plan of Treatment Not on file documented as of this encounter Visit Diagnoses Not on filedocumented in this encounter
--- OUTSIDE RECORDS SUMMARY | 2025-02-13 15:14 | XMS_ITS | Encounter Summary ---
Author Organization Healthcare Address [address] [place] [address] Care Team Providers Care Flight Attendant Ramp Name Role Phone Balwinder Blood MD Primary Care Provider [phone]- [phone] Encounter Details Date Type Department Care Team (Late st Contact Info) Description 12/31/2024 Telephone [facility] [address], [address] [place] [address] Laurel Gamble, PA [address] [place] [address] Social History Tobacco Use Types [...] documented as of this encounter Care Teams Flight Attendant Ramp Relationship Specialty Start Date End Date Balwinder Blood MD [address] [place] [address] PCP - General 11/05/24 documented as of this encounter
--- OUTSIDE RECORDS SUMMARY | 2025-02-13 15:14 | XMS_ITS | Encounter Summary ---
Author Organization [employer] ([place], [place]) Address [address] [place] [address] Care Team Providers Care Video Camera Operator Name Role Phone Unavailable Primary Care Provider Unavailabl e Encounter Details Date Type Department Care Team (Late st Contact Info) Description 02/01/2020 Transcribed Document [facility] [place] Family Medicine [address] [place] [address] ProviderJason MD [facility] [place] [address] Social History Tobacco Use Types [...] Willis MD - 02/01/2020 10:03 AM CDT [address] , [place] [address] Patient Copy Patient Information: Name: THANH MELENDEZ Current Date: 02/01/2020 10:03:34 : 1990 Patient Address: [place] [address] Patient Attending Physician: FARNAZ NAILS MD-LATISHA Primary Care Provider: Primary Care Provider Phone: Discharge Diagnosis: Abnormal electroencephalogram (EEG); Nonepileptic episode Weight on Admission: 150 lb, 0 oz Comment: Follow-up Instructions: With: Address: When: [place] Lance[place] [address] [place] [address] Business (1) Within 3 months Discharge Instructions: [...] Assistance with quitting is available by contacting 3-599-RDGR-NOW. This is a free resource providing counseling, [...] Be sure to sign up for the [employer] patient portal, which gives you 13/02 access to your medical information ??? including these discharge instructions ??? using your computer, smartphone, or tablet. Just go to Your [employer] to get started. Questions? Call . [facility] would like to thank you for allowing us to assist you with your healthcare needs. NORA eFrreira LAURA K, (or denial management representative) have received the above patient education materials/instructions and have verbalized understanding: Patient Signature _ Date/Time Patient Customer Care Professional Signature (if needed) Date/Time Clinician/Hospital Customer Care Professional Signature (if needed) Date/Time documented in this encounter Plan of Treatment Not on file documented as of this encounter Visit Diagnoses Not on filedocumented in this encounter
--- OUTSIDE RECORDS SUMMARY | 2025-02-13 15:14 | XMS_ITS | Clinical Summary ---
Author Organization Healthcare Address [address] [place] [address] Care Team Providers Care Diesel Locomotive Crane Operator Name Role Phone Balwinder Blood MD Primary Care Provider [phone]- [phone] Allergies Active Allergy Reactions Criticality Noted Date [...] Type Department Care Team Description 12/31/2024 Telephone [facility] [address] [place] [address] Laurel Gamble PA from Last [...] 2013 [facility]-Cervical Cancer Screening 2022 [facility]-HPV/Cotest 2022 [facility]-XCODQ-46 Vaccine (3 - 2023-25 season) 2024 08/06/2021, 06/15/2021 [facility]-Influenza Vaccine (#1) [...] to complete this topic Insurance Care Teams Diesel Locomotive Crane Operator Relationship Specialty Start Date End Date Balwinder Blood MD [address] [place] [address] PCP - General 11/05/24
--- OUTSIDE RECORDS SUMMARY | 2025-02-13 15:14 | XMS_ITS | Encounter Summary ---
Author Organization [employer] ([place], [place], [place], [place]) Address [address] [place] [address] Care Team Providers Care Hazardous Material Specialist Name Role Phone Unavailable Primary Care Provider Unavailabl e Encounter Details Date Type Department Care Team (Late st Contact Info) Description 01/30/2020 Transcribed Document [facility] [place] [facility] [place] [address] ProviderJason [place] [address] Social History Tobacco Use Types Packs/Day Years [...] #2 Relationship : n/a Primary Language : Mongolian Communication Barrier : None Personal Banker Needed : No Perla Guevara RN - [...] Scale Risk Level : 0-24 Low Risk [place] Fall Interventions : Adequate lighting, Bed in [...] 30 days) Smokeless Tobacco Status : Never Pelra Guevara RN - 01/30/2020 10:22 EDT Social History (As Of: 01/30/2020 10:26:07 EDT) Height and Weight, Clinical Dosing Height Source : Stated Height Entry Format : [place] Height, Feet : 5 ft(Converted to: 152 cm, 60 Inch) Height, Inches : 2 Inch(Converted to: 0 ft 2 Inch, 5.08 cm) Clinical Height : 157.48 cm Weight Source : Standing scale Weight Entry Format : [place] Clinical Dosing Weight : 68.18 kg Weight, Pounds : 150 lb Body Surface Area (BSA) : 1.69 m2 Body Mass Index : 27.5 kg/m2 (HI) [place] Body Weight : 50 kg Perla Guevara [...] Perla Guevara RN - 01/30/2020 10:22 EDT [place] Suicide Severity Rating Scale (C-SSRS) CSSRS Past [...]
--- OUTSIDE RECORDS SUMMARY | 2025-02-13 15:14 | XMS_ITS | Encounter Summary ---
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 without status migrainosus Angeles Johnson MD [address] [facility] [address] [place] [address] Phone: tel: fax: Adam Ontiveros MD [address] [facility] [address] [place] [address] Phone: tel: fax: Referral ID Status Reason Start Date Expiration Date V isits Requested Visits Authorized [id number] Closed Specialty Services Required 04/02/2024 10/02/2025 1 1 Encounter Details Date Type Department Care Team (Late st Contact Info) Description 04/02/2024 Community [facility] [address] [place] [address] Angeles Johnson MD [address] [facility] [address] [place] [address] Intractable chronic migraine without aura [...] Primary documented in this encounter Care Teams Journeyman Powerhouse Operator Relationship Specialty Start Date End Date Aristeo Black MD [address] [address] PCP - General 12/04/20 11/04/24 Balwinder Blood MD [address] [place] [address] PCP - General 11/05/24 documented as of this encounter
--- OUTSIDE RECORDS SUMMARY | 2025-02-13 15:14 | XMS_ITS | Encounter Summary ---
Author Organization [employer] ([place], [place], [place], [place]) Address [address] [place] [address] Care Team Providers Care Family Practitioner Name Role Phone Unavailable Primary Care Provider Unavailabl e Encounter Details Date Type Department Care Team (Late st Contact Info) Description 02/01/2020 Transcribed Document [facility] [place] [facility] [place] [address] ProviderJason MD [address] [place] [id number] Social History Tobacco Use Types Packs/Day Years [...] Normal cranial nerves. Normal motor exam. Normal zdtgwb-th-[id number]. DISCHARGE INSTRUCTIONS: 1. No driving. 2. Multivitamins one tablet daily. 3. Follow up with Dr. Johnson in 3 months. /[id number] MD SINGH Singh/HARMAN / SINGH / MODL /[id number] documented in this encounter Plan of Treatment Not on file documented as of this encounter Visit Diagnoses Not on filedocumented in this encounter
--- OUTSIDE RECORDS SUMMARY | 2025-02-13 15:14 | XMS_ITS | Encounter Summary ---
Author Organization [employer] ([place], [place], [place], [place]) Address [address] [place] [address] Care Team Providers Care Program Aide Name Role Phone Unavailable Primary Care Provider Unavailabl e Encounter Details Date Type Department Care Team (Late st Contact Info) Description 01/31/2020 Transcribed Document [facility] [place] Family Medicine [facility] [place] [address] ProviderJason MD [address] [place], [place] [address] Social History Tobacco Use Types Packs/Day Years [...] EEG-video monitoring was performed using the 32-channel Neronote monitoring system. The seizure detection computer was [...] seen independently in both hemispheres at F7-T7-P7, Ul1-O4-Q2-T8, P8-O2 and less frequently at P7-O1. CLINICAL [...] of multifocal potential epileptogenicity in both hemispheres. /[id number] MD SINGH Singh/AQ / TAF / MODL /[id number] documented in this encounter Plan of Treatment Not on file documented as of this encounter Visit Diagnoses Not on filedocumented in this encounter
--- OUTSIDE RECORDS SUMMARY | 2025-02-13 15:14 | XMS_ITS | Encounter Summary ---
Author Organization [employer] ([place], [place]) Address [address] [place] [address] Care Team Providers Care Ice Cream Machine Operator Name Role Phone Unavailable Primary Care Provider Unavailabl e Encounter Details Date Type Department Care Team (Late st Contact Info) Description 01/31/2020 Transcribed Document [facility] [place] [address] [place] [address] ProviderJason MD [address] [place], [place] [id number] Social History Tobacco Use Types Packs/Day Years [...]
--- OUTSIDE RECORDS SUMMARY | 2025-02-13 15:14 | XMS_ITS | Encounter Summary ---
Author Organization [employer] ([place], [place], [place], [place]) Address [address] [place] [address] Care Team Providers Care Groover Operator Name Role Phone Unavailable Primary Care Provider Unavailabl e Encounter Details Date Type Department Care Team (Late st Contact Info) Description 02/01/2020 Transcribed Document [facility] [place] [facility] [place] [address] ProviderJason MD [address] [place] [id number] Social History Tobacco Use Types Packs/Day Years [...]
--- OUTSIDE RECORDS SUMMARY | 2025-02-13 15:14 | XMS_ITS | Referral Summary ---
Author Organization [employer] ([place], [place], [place], [place]) Address [address] [place] [address] Care Team Providers Care System Designer Name Role Phone Unavailable Primary Care Provider [...]
--- OUTSIDE RECORDS SUMMARY | 2025-02-13 15:14 | XMS_ITS | Encounter Summary ---
Author Organization [employer] ([place], [place], [place], [place]) Address [address] [place] [address] Care Team Providers Care Organizational Development Consultant Name Role Phone Unavailable Primary Care Provider Unavailabl e Encounter Details Date Type Department Care Team (Late st Contact Info) Description 01/31/2020 Transcribed Document [facility] [place] Family Medicine [address] [place] [address] ProviderJason MD [address] [place], [place] [id number] Social History Tobacco Use Types Packs/Day Years [...] EDT Height Source Stated Height Entry Format [place] Height/Length, SCOTTISH (ft) 5 ft Height/Length [place]OTT[place] 2 Inch CLINICALHEIGHT 157.48 cm Ada Body Weight 50 kg Weight Source Standing scale Weight Entry Format [place] Weight Bengali lb 150 lb CLINICALWEIGHT 68.18 kg Body [...] 2. Encouraged increase in level of activity Electronically signed by Joey Hobbs Conversion Maintenance And Operations Supervisor Cerner at 11/07/2022 6:24 PM CDT documented in this encounter Plan of Treatment Not on file documented as of this encounter Visit Diagnoses Not on filedocumented in this encounter
--- NOTE | 2025-02-13 15:28 | EXP.PAIN.SOA ---
[facility] Disclaimer: The information contained in this section may have been updated after the patient was seen, as this information can be updated by other users. Medical History Vitamin D deficiency Paresthesias Sudden onset of facial numbness involving perioral region, tip of fingers up to the elbows and more recently both legs from hips down. There is no evidence of upper or lower motor neuron lesions or clear dermatome distribution and it is very difficult to localize a WALKING DRAGLINE OPERATOR lesion that can explain current signs and symptoms. If an organic etiology can be excluded then consider functional etiology. Narcolepsy Surgical History H/O bilateral salpingectomy Hx of wisdom tooth extraction History of tonsillectomy and adenoidectomy History of carpal tunnel release Hx of dilation and curettage Family History Other Cancer Coronary artery disease Family history of diabetes mellitus type II Family history of myocardial infarction Stroke Social History Smoking Status: Former smoker tobacco type: cigarettes packs per day: 1 second hand exposure: No alcohol intake: current alcohol intake frequency: holidays/special occasions only substance use type: denies use current occupational status: employed Travel in the last 8 weeks?: None household members: family housing: house 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 Today she does rated her pain a 2 out of 10. Patient does state that she has had at least 90% improvement following this injection and does feel like it really has made all the difference. Patient does state that this week she has noticed a little bit more tightness but is unsure whether or not if it is just where she has been super busy at work. Patient has been prescribed tizanidine however states that with the pain improvement she is not even needed to take this. Patient is very pleased on how well this is work. Her Jad has been reviewed and is appropriate. Review of Systems: General: No recent weight changes, no fever, no sleep disturbances Respiratory: No cough, no shortness of air, no recurring pulmonary infections Cardiovascular/peripheral vascular: No chest pain, no palpitations, no edema, no shortness of breath Gastrointestinal: No new onset incontinence, normal bowel movements reported Genitourinary: No new onset incontinence Musculoskeletal: Neck pain Psychiatric: [Normal mood/affect] Neurological: [Denies weakness in extremities], [denies balance issues] Pain at rest (0-10 scale): 2 Objective Objective:: Physical Exam: General: Alert and oriented x3, no acute distress, pleasant and cooperative Lungs: Respirations even and unlabored, symmetrical chest expansion Eyes: PERRL Musculoskeletal: Flexion and extension of cervical [spine] within normal limits Neurological: Speech clear, no gross sensory deficit Has patient had previous pain injection?: Yes Percent improvement in pain since last injection: 90% Conservative treatment options previously tried: Home exercise plan Length of treatment: Longer than 12 weeks Meds Home Medications and Allergies Home Medications ?Medication ?Instructions ?Recorded ?Confirmed ?Type armodafinil 200 mg tablet 200 mg PO DAILY Hypersomnia #30 10/29/24 01/28/25 Rx tabs tizanidine 4 mg tablet 4 - 8 mg (1 - 2 x 4 mg) PO HS PRN 10/29/24 01/28/25 Rx neck pain, headache #60 tabs ubrogepant 100 mg tablet (Ubrelvy) 100 mg PO ONCE PRN headache #16 10/29/24 01/28/25 Rx tabs amoxicillin 500 mg-potassium 1 tab PO BID 7 days #14 tabs 01/13/25 01/28/25 Rx clavulanate 125 mg tablet valacyclovir 500 mg tablet 500 mg PO DAILY PRN 01/28/25 01/28/25 History (Valtrex) New Prescriptions to Start Prescriptions: Allergies Allergy/AdvReac Type Severity Reaction Status Date / Time penicillin G (PENICILLIN G) Allergy Intermediate I-HIVES Verified 01/28/25 13:09 promethazine (From PHENERGAN) Allergy Unknown NA-NAUSEA/V Verified 01/28/25 13:09 OMITING amoxicillin Allergy Verified 01/28/25 13:09 Assessment and Plan *Assessment and plan (1) Cervical radiculopathy: Status: Acute Category: Medical Code(s): M54.12 - Radiculopathy, cervical region (2) Degenerative disc disease, cervical: Status: Acute Category: Medical Code(s): M50.30 - Other cervical disc degeneration, unspecified cervical region (3) Cervicogenic headache: Problem Comment: Continue tizanidine Status: Chronic Category: Medical Code(s): G44.86 - Cervicogenic headache Plan Patient has had significant improvement and does not require any additional injection therapy at this time. Patient will return to clinic in 6 weeks for reevaluation of symptoms and plan of care. Patient has been instructed to contact the clinic with any concerns before the next appointment. Dr. Sosa has reviewed this note and agrees with this plan of care. This note was dictated using voice recognition software and make contain errors or omissions. All injections are used with Lidocaine, Bupivacaine and dexamethasone. Occasionally urine drug screen is needed to verify patient's compliance with our office pain contract. This is ordered based off specific treatments related to chronic pain with the potential to abuse certain medications.
[2025-02-13 15:36] VITALS: BP 122/81; PULSE 80; RESP 18; O2SAT 99; BMI 24.7
== END 2025-02-13 23:59 | disposition home or self-care (01) ==
LOC: SC.PAIN 15:11
PROVIDERS: PCP Family Medicine; Visit Provider Nurse Practitioner Family
DX: M50.123 Cervical disc disorder at C6-C7 level with radiculopathy (principal); G44.86 Cervicogenic headache
CPT/HCPCS: 99212; G0463

== ENCOUNTER 2025-04-03 08:23 | Day surgery (SDC) | payer OTHER, SELFPAY ==
[2025-03-28 14:21] VITALS: BMI 24.5
--- NOTE | 2025-04-01 17:27 | EXP.HP ---
History of Present Illness *Admission Date: 04/03/25 *History of present illness: Mrs. Ashley is a 34-year-old female who is here for diagnostic colonoscopy. The patient reports intermittent pain in the upper abdomen that starts in the mid or right upper quadrant and radiates around into the back. This can occur usually once every couple of months. The pain can be excruciating. She did have a gallbladder ultrasound that showed small gallbladder polyps but there was no gallbladder wall thickening, gallstones, pericholecystic fluid or Ernst sign. The CBD and biliary system was normal. She also has had normal liver chemistries. The patient does state that she does have moderate bloating and belching. Her bowel function has changed and she does have mostly loose stools that are also sometimes solid. She has noted more blood and mucus with her stool and she sees blood with her stool several times weekly. This all began within the last 9 or 10 months. The patient does state that her biologic father did have metastatic abdominal cancer but she does not know the primary. She also states that her paternal aunt had Crohn's disease. The patient has never had EGD or colonoscopy. The patient also reports some incomplete defecation with longer periods of time on the commode and excessive wiping. She reports no unintentional weight loss. Her last set of labs in February 2024 showed normal hemoglobin 14.6 and hematocrit 46.2. [facility] Disclaimer: The information contained in this section may have been updated after the patient was seen, as this information can be updated by other users. Medical History Vitamin D deficiency Paresthesias Sudden onset of facial numbness involving perioral region, tip of fingers up to the elbows and more recently both legs from hips down. There is no evidence of upper or lower motor neuron lesions or clear dermatome distribution and it is very difficult to localize a CHILD CARE SUPERVISOR lesion that can explain current signs and symptoms. If an organic etiology can be excluded then consider functional etiology. Narcolepsy Surgical History H/O bilateral salpingectomy Hx of wisdom tooth extraction History of tonsillectomy and adenoidectomy History of carpal tunnel release Hx of dilation and curettage Family History Other Cancer Coronary artery disease Family history of diabetes mellitus type II Family history of myocardial infarction Stroke Social History Smoking Status: Former smoker tobacco type: cigarettes packs per day: 1 second hand exposure: No alcohol intake: current alcohol intake frequency: holidays/special occasions only substance use type: denies use current occupational status: employed Travel in the last 8 weeks?: None household members: family housing: house 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 current occupational exposures/hazards: No caffeine: Yes Have you lived/traveled outside [place] in past 30 days?: No Contact w/someone who lives/traveled outside [place] past 30 days?: No Exposure to someone with infectious disease in past 14 days?: No Do you have a fever (greater than 100.4 F or 38 C)?: No Have you tested positive for COVID-19?: No Exposed to someone with COVID-19 in past 14 days?: No Do you have a sore throat?: No Do you have a cough?: No Do you have any weakness?: No Do you have any diarrhea?: No Are you experiencing any unusual bleeding?: No Do you have any muscle aches/pain?: No Do you have any abdominal pain?: No Are you experiencing loss of taste or smell?: No Other Medical History Have you received the Flu Vaccine for this season: Yes Have you received the Pneumonia Vaccine: Yes Review of Systems Review of Systems Review of systems (narrative): Negative *Cardiovascular Comments: Negative *Gastrointestinal Comments: Negative *Genitourinary Comments: Negative *Musculoskeletal Comments: Negative *Neurologic Comments: Negative Meds Home Medications and Allergies Home Medications ?Medication ?Instructions ?Recorded ?Confirmed ?Type armodafinil 200 mg tablet 200 mg PO DAILY Hypersomnia #30 10/29/24 04/03/25 Rx tabs tizanidine 4 mg tablet 4 - 8 mg (1 - 2 x 4 mg) PO HS PRN 10/29/24 04/03/25 Rx neck pain, headache #60 tabs ubrogepant 100 mg tablet (Ubrelvy) 100 mg PO ONCE PRN headache #16 10/29/24 04/03/25 Rx tabs New Prescriptions to Start Prescriptions: Allergies Allergy/AdvReac Type Severity Reaction Status Date / Time penicillin G (PENICILLIN G) Allergy Intermediate I-HIVES Verified 04/03/25 08:34 promethazine (From [facility]) Allergy Unknown NA-NAUSEA/V Verified 04/03/25 08:34 OMITING amoxicillin Allergy Hives Verified 04/03/25 08:34 Exam *Routine HEENT Exam Head: Present normocephalic Eye: Present EOMI and PERRL ENT: Present mucous membranes moist *Routine Neck Exam Neck: Present supple *Routine Respiratory Exam Respiratory: Present CTA bilaterally *Routine Cardiovascular Exam Cardiovascular: Present RRR *Routine Abdominal Exam Abdominal: Present soft and normoactive bowel sounds; Absent tenderness *Routine Rectal Exam Rectal:: deferred *Routine Genitalia Exam Genitalia:: deferred *Routine Extremities Exam Extremities: Absent cyanosis, clubbing or edema *Routine Skin Exam Skin: Present warm; Absent rash *Routine Neurological Exam Neurological: Present alert and oriented X3 Assessment and Plan *Assessment and plan (1) Change in bowel habits: Status: Acute Category: Medical Code(s): R19.4 - Change in bowel habit (2) Right upper quadrant abdominal pain: Status: Acute Category: Medical Code(s): R10.11 - Right upper quadrant pain (3) Loose stools: Status: Acute Category: Medical Code(s): R19.5 - Other fecal abnormalities (4) Rectal bleeding: Status: Acute Category: Medical Code(s): K62.5 - Hemorrhage of anus and rectum (5) Mucus in stool: Status: Acute Category: Medical Code(s): R19.5 - Other fecal abnormalities (6) Incomplete defecation: Status: Acute Category: Medical Code(s): R15.0 - Incomplete defecation Plan A/P: 1. Right upper quadrant abdominal pain, incomplete defecation, loose stools, rectal bleeding and mucus in stools is the preprocedural diagnosis. The patient will be anesthetized/sedated using MAC sedation. The patient has been seen and examined. Cardiac and lung assessment prior to the examination is stable. Proceed with planned diagnostic colonoscopy.
[2025-04-03 08:36] VITALS: BP 107/62; PULSE 75; RESP 16; TEMP 36.3; O2SAT 100
[2025-04-03 08:39] LABS: Urine Pregnancy, HCG Qual. Negative (Negative)
[2025-04-03] MEDS: LACTATED RINGERS 1000ML 1,000 ML 50 ML IV (08:42)
--- NOTE | 2025-04-03 08:56 | EXP.ANES.CKL ---
[facility] Disclaimer: The information contained in this section may have been updated after the patient was seen, as this information can be updated by other users. Medical History Vitamin D deficiency Paresthesias Sudden onset of facial numbness involving perioral region, tip of fingers up to the elbows and more recently both legs from hips down. There is no evidence of upper or lower motor neuron lesions or clear dermatome distribution and it is very difficult to localize a MACHINE PLASTER MIXER lesion that can explain current signs and symptoms. If an organic etiology can be excluded then consider functional etiology. Narcolepsy Surgical History H/O bilateral salpingectomy Hx of wisdom tooth extraction History of tonsillectomy and adenoidectomy History of carpal tunnel release Hx of dilation and curettage Family History Other Cancer Coronary artery disease Family history of diabetes mellitus type II Family history of myocardial infarction Stroke Social History Smoking Status: Former smoker tobacco type: cigarettes packs per day: 1 second hand exposure: No alcohol intake: current alcohol intake frequency: holidays/special occasions only substance use type: denies use current occupational status: employed Travel in the last 8 weeks?: None household members: family housing: house 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 current occupational exposures/hazards: No caffeine: Yes Have you lived/traveled outside [place] in past 30 days?: No Contact w/someone who lives/traveled outside [place] past 30 days?: No Exposure to someone with infectious disease in past 14 days?: No Do you have a fever (greater than 100.4 F or 38 C)?: No Have you tested positive for COVID-19?: No Exposed to someone with COVID-19 in past 14 days?: No Do you have a sore throat?: No Do you have a cough?: No Do you have any weakness?: No Do you have any diarrhea?: No Are you experiencing any unusual bleeding?: No Do you have any muscle aches/pain?: No Do you have any abdominal pain?: No Are you experiencing loss of taste or smell?: No [facility] Anesthesia Checklist Patient Identification Patient Identification: Arm Band and Verbal (Name & ) Structural Data Admitted From: Home Planned Operative Procedure/s: colonoscopy Consent for Planned Operative Procedure(s) Verified: Yes Verified Documents: Surgical Consent NPO Status Verified Time NPO: 00:00 Chart Verification Results Verified: None Additional verifications Anesthesia Reactions: No Hx Blood Transfusions: No Blood Transfusion Reaction: No Airway Assessment Mallampati Score:: Class II C-Spine Mobility Assessed: Yes TMJ Mobility Assessed: Yes Dentition: Good Dentition Neurological Assessment Level of Consciousness: Awake, Alert and Appropriate Hx Seizures: No Numbness or tingling in extremities: No Anesthesia Plan Anesthesia Risk discussed: Yes Anesthesia Plan: Verified ASA Class: II Anesthesia Type: MAC
--- NOTE | 2025-04-03 09:36 | P.PCN_ITS ---
[facility] Procedure Note Date: 04/03/25 Time: 09:51 Procedure Note:: Colonoscopy Procedure Report: Colonoscopy with monopolar ablation/coagulation of internal hemorrhoids Endoscopist: Humza Sue II, MD Referring physician: Balwinder Blood MD Date of Procedure: April 03, 2020 Equipment: Olympus [id number] adult colonoscope Sedation: MAC sedation Indication: Mrs. Ashley is a 34-year-old female who is here for diagnostic colonoscopy. The patient reports intermittent pain in the upper abdomen that starts in the mid or right upper quadrant and radiates around into the back. This can occur usually once every couple of months. The pain can be excruciating. She did have a gallbladder ultrasound that showed small gallbladder polyps but there was no gallbladder wall thickening, gallstones, pericholecystic fluid or Ernst sign. The CBD and biliary system was normal. She also has had normal liver chemistries. The patient does state that she does have moderate bloating and belching. Her bowel function has changed and she does have mostly loose stools that are also sometimes solid. She has noted more blood and mucus with her stool and she sees blood with her stool several times weekly. This all began within the last 9 or 10 months. The patient does state that her biologic father did have metastatic abdominal cancer but she does not know the primary. She also states that her paternal aunt had Crohn's disease. The patient has never had EGD or colonoscopy. The patient also reports some incomplete defecation with longer periods of time on the commode and excessive wiping. She reports no unintentional weight loss. Her last set of labs in February 2024 showed normal hemoglobin 14.6 and hematocrit 46.2. Since her office visit, she is doing better with less bleeding but continues to have constipation/incomplete defecation. Procedure: Prior to the procedure, a history and physical exam was performed, and patient's medications and allergies were reviewed. The risks, benefits and alternatives of the sedation and procedure were discussed with the patient. All questions were answered and informed consent was obtained. The patient was brought to the procedure room. Patient identification and proposed procedure were verified by the physician and the nurse. The patient was placed in a left lateral decubitus position and the scope was passed under direct vision. Throughout the procedure, the patient's blood pressure, pulse, and oxygen saturations were monitored continuously. The colonoscopy was accomplished without difficulty. The patient tolerated the procedure well. Findings: On digital rectal examination there was normal rectal tone. There were no external hemorrhoids. The colonoscope was introduced through the anal canal to the rectum and advanced to the cecum. The ileocecal valve and appendiceal orifice were identified. The scope was advanced a short distance into the ileum which appeared grossly normal. The scope was then withdrawn into the colon. The cecum, ascending, transverse, descending, sigmoid and rectum were grossly normal. There were no mucosal abnormalities identified. Upon retroflexion within the rectum there were grade 1-2 internal hemorrhoids. 3 columns of hemorrhoids were ablated/coagulated using monopolar ablation/coagulation. The preparation was excellent throughout with Stevenson Preparation Score of 9. The cecal time was 10 minutes. Impression: 1. Normal colonoscopy with intubation of the terminal ileum 2. Grade 1-2 internal hemorrhoids status post monopolar ablation/coagulation Plan: The patient does have IBS with constipation predominant symptoms presently. We will discuss treatment options (Linzess, Trulance or prucalopride) today. The patient also has intermittent hepatic flexure syndrome with right upper quadrant abdominal pain. Hepatic flexure syndrome is a term used to describe bloating, muscle spasms of the colon and upper abdominal pain on the right side (and can radiate into the back) and is thought to be caused by trapped gas and stool at the hepatic flexure/curvature of the colon which is in the right upper colon. The pain can be excruciating and debilitating.
[2025-04-03 09:56] VITALS: BP 93/56; PULSE 60; RESP 18; TEMP 36.3; O2SAT 96
[2025-04-03 10:06] VITALS: BP 96/61; PULSE 60; O2SAT 100
[2025-04-03 10:16] VITALS: BP 103/56; PULSE 53; O2SAT 99
[2025-04-03 10:26] VITALS: BP 112/70; PULSE 51; O2SAT 100
== END 2025-04-03 10:26 | disposition home or self-care (01) ==
PROVIDERS: PCP Family Medicine; Visit Provider Internal Medicine Gastroenterology
PROC: 0DJD8ZZ Inspection of Lower Intestinal Tract, Via Natural or Artificial Opening Endoscopic (ICD-10-PCS; CPT 45378; principal; 2025-04-03 10:00)
DX: K64.0 First degree hemorrhoids (principal); K64.1 Second degree hemorrhoids; K59.04 Chronic idiopathic constipation; E55.9 Vitamin D deficiency, unspecified; G47.419 Narcolepsy without cataplexy; Z87.891 Personal history of nicotine dependence; Z79.899 Other long term (current) drug therapy; Z88.0 Allergy status to penicillin; Z88.1 Allergy status to other antibiotic agents; Z88.8 Allergy status to other drugs, medicaments and biological substances
CPT/HCPCS: 45388; 81025; J2003; J2704; J7120

== ENCOUNTER 2025-05-06 11:05 | Day surgery (SDC) | payer OTHER, SELFPAY ==
[2025-05-06 11:22] VITALS: BP 106/72; PULSE 69; RESP 18; O2SAT 97; BMI 24.5
[2025-05-06] MEDS: IOPAMIDOL-200 (41%);10ML VIAL 2 ML IV (11:27)
[2025-05-06 11:30] VITALS: BP 109/61; PULSE 60; RESP 18; O2SAT 99
[2025-05-06] MEDS: DEXAMETHASONE 10MG/ML 1ML VIAL 10 MG (11:30)
[2025-05-06 11:31] VITALS: BP 109/61; PULSE 60; RESP 18; O2SAT 99
[2025-05-06 11:37] VITALS: BP 104/64; PULSE 67; RESP 16; O2SAT 100
--- NOTE | 2025-05-06 12:17 | P.PCN_ITS ---
Procedure Date: 05/06/25 Time: 10:20 Anesthesiologist:: Nirmal eVlasquez CRNA Complications:: None Pre-procedure Diagnosis:: Degenerative disc cervical spine multilevels. Cervical spondylosis. Cervical radiculopathy. Post-procedure Diagnosis:: Same. Indications for Procedure:: Patient is a pleasant 34-year-old female who comes our clinic today for repeat cervical epidural steroid injection. Patient describes cervical neck pain as constant, dull, aching. Patient also reports bilateral arm radicular symptoms at times. She rates her pain 7/10. Procedure Details:: Procedure:Cervical epidural steroid injection Informed consent was obtained and the risks and benefits of the procedure were explained to the patient. The patient was taken to the procedure room and noninvasive monitors placed, including noninvasive blood pressure cuff and pulse oximeter. The neck was prepped using Chloraprep as a cleansing solution. The C6- C7 interspace was viewed using fluroscopy. The skin and subcutaneous tissues were anesthetized using lidocaine 1.5% and a 25-gauge needle. After this an 18- gauge Touhy epidural needle was placed into the C6-C7 interspace under fluroscopy guidance and advanced using loss of resistance to air until the epid ural space was encountered. After confirmation of needle placement in the epidural space using contrast dye, dexamethasone 10 mg ( 1 ML) was incrementally injected into the cervical epidural space.~ The patient tolerated the procedure well with no complications. The patient was observed in the Pain Clinic and then discharged home neurologically intact. Plan and Disposition:: Patient was discharged without incident.
== END 2025-05-06 11:37 | disposition home or self-care (01) ==
PROVIDERS: PCP Family Medicine; Visit Provider Nurse Anesthetist, Certified Registered
DX: M50.123 Cervical disc disorder at C6-C7 level with radiculopathy (principal); M47.22 Other spondylosis with radiculopathy, cervical region; G47.419 Narcolepsy without cataplexy; Z88.0 Allergy status to penicillin; Z88.1 Allergy status to other antibiotic agents; Z88.8 Allergy status to other drugs, medicaments and biological substances; Z79.899 Other long term (current) drug therapy
CPT/HCPCS: 62321; J1100; Q9966